=== PATIENT | female | born 1940 | race Caucasian/White ===

== ENCOUNTER 2019-03-30 07:53 | Emergency (ER) | payer MEDICARE, OTHER, SELFPAY ==
--- NOTE | 2019-03-30 08:03 | PC.NURSE ---
rad notified of CT order
--- NOTE | 2019-03-30 08:04 | XR_ITS ---
XR chest 2V HISTORY: ITS.REASON: stroke protocol ORDERING PHYSICIAN: Mati Isidro MD PATIENT AGE: 78 years COMPARISON: None available FINDINGS: Cardiac size is borderline and there is moderate aortic tortuosity.. The lungs are clear without infiltrates, suspicious nodules, or pleural effusions. No acute bony abnormalities. There are mild multilevel degenerative changes mid thoracic spine. There are monitor lines overlying the chest. There are mild degenerative changes of both shoulders. IMPRESSION: Negative chest, no acute finding
--- NOTE | 2019-03-30 08:04 | CT_ITS ---
CT head/brain wo con HISTORY: Hypertension, severe headache ITS.REASON: stroke protocol ORDERING PHYSICIAN: Mati Isidro MD PATIENT AGE: 78 years COMPARISON: None TECHNIQUE: Axial images obtained without contrast. Brain and bone windows reviewed. All CT scans at the facility use one or more dose reduction, viz: automated exposure control, ma/kV adjustment per patient size (including targeted exams where dose is matched to indication, i.e. head), or iterative reconstruction technique. FINDINGS: No midline shift, mass effect, intracranial hemorrhage, hydrocephalus, or extra-axial fluid collection is evident. There is an old lacunar infarction in the right basal ganglia. Mild periventricular ischemic gliotic changes are noted with mild atrophy. The calvarium has an unremarkable appearance. No mastoid effusion. No sinus air-fluid levels.. IMPRESSION: 1. No acute intracranial findings. 2. 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
[2019-03-30 08:07] VITALS: BP 214/99; PULSE 96; RESP 18; TEMP 36.8; O2SAT 96; BMI 21.6
--- NOTE | 2019-03-30 08:13 | HMH.EDGENADL ---
ED Disposition Clinical Impression: Headache Disposition: Home, Self-Care Condition on Discharge: Good Instructions: DI for Headache Referrals: Provider,Referral, MD [Primary Care Provider] - Time of Disposition: 10:13 - Critical Care Critical Care Time: No Attestation: On 03/30/19, the high probability of a clinically significant, sudden or life threatening deterioration of the following system(s) required my full and direct attention, intervention and personal management. The time I documented below is in addition to time spent performing reported procedures but includes the following listed in this critical care notation. Medical Decision Making - Medical Records Medical records reviewed: Yes: I reviewed the patient's medical records. - Seth Inquiry Pt receiving controlled substance: No Seth was queried for this patient: No Vital Signs: 03/30/19 08:07 03/30/19 08:47 03/30/19 09:41 Temperature 98.2 F 97.9 F Temperature Source Oral Oral Pulse Rate [Left Radial] 96 H 139 H 130 H Respiratory Rate 18 18 Blood Pressure [Right Arm] 214/99 H 201/100 H 195/95 H Blood Pressure Mean [Right Arm] 137 133 128 Blood Pressure Source [Right Arm] Automatic Cuff Manual Cuff/ Auscultation Blood Pressure Position [Right Arm] Sitting 02 Sat by Pulse Oximetry 96 96 98 Oxygen Delivery Method Room Air - Lab Data Lab results reviewed: Yes: I reviewed the patient's lab results. Lab Results 03/30/19 08:57: WBC 6.2, RBC 4.99, Hgb 14.4, Hct 44.7, MCV 89.6, MCH 28.9, MCHC 32.2, RDW 13.2, Plt Count 273, MPV 8.4, Neut % (Auto) 58.8, Lymph % (Auto) 28.7, [place] % (Auto) 8.2, Eos % (Auto) 3.7, Baso % (Auto) 0.5, Neut # (Auto) 3.7, Lymph # (Auto) 1.8, [place] # (Auto) 0.5, Eos # (Auto) 0.2, Baso # (Auto) 0.0 03/30/19 08:57: Sodium 144, Potassium 4.0, Chloride 108 H, Carbon Dioxide 28, Anion Gap 12.0, BUN 14, Creatinine 0.77, Estimated Creat Clear 42, Estimated GFR 72, Est GFR ( Amer) 87, Glucose 97, Calcium 9.9, Troponin I < 0.02, C-Reactive Protein < 0.2 03/30/19 08:57: ESR 19 Result diagrams: 03/30/19 08:57 03/30/19 08:57 Orders (Tests/Meds): ED MEDICATIONS Discontinued Medications Generic Name Dose Route Start Last Admin Trade Name Kimberlee PRN Reason Stop Dose Admin Dexamethasone Sodium Phosphate 8 mg 03/30/19 08:45 03/30/19 09:43 Decadron 4mg/Ml 1ml Vial IV 03/30/19 08:46 8 mg ONCE ONE Administration Ketorolac Tromethamine 30 mg 03/30/19 08:30 03/30/19 09:42 Toradol 30mg/Ml Vial IV 03/30/19 08:31 30 mg ONCE ONE Administration Metoclopramide HCl 5 mg 03/30/19 08:30 03/30/19 09:49 Reglan 10mg/2ml Vial IVP 03/30/19 08:31 5 mg ONCE ONE Administration Metoprolol Tartrate 50 mg 03/30/19 08:53 03/30/19 09:50 Lopressor 50mg Tablet PO 03/30/19 08:54 50 mg ONCE ONE Administration Ondansetron HCl 4 mg 03/30/19 08:30 03/30/19 09:49 Zofran 4mg/2ml Vial IV 03/30/19 08:31 4 mg ONCE ONE Administration ORDERS Category Date Time Status Chest XR 2 view (NOT portable) [XR chest 2V] Stat Exams 03/30/19 08:04 Taken General Adult HPI - General Stated complaint: hx of stroke; headache; not feeling well Time Seen by Provider: 03/30/19 08:13 Mode of Arrival: Ambulatory Source of Information: Patient, Relative Limitations: No Limitations Description of Symptoms (Recalled from ER Triage Doc. by RN): c/o headache t/o the night with no relief with aleve. - History of Present Illness HPI narrative: History of rare unilateral headaches, never formally evaluated. History also of CVA, nothing hemorrhagic. History of old lacunar. No other specific complaints. NO confusion, alterations in adl's, no weakness nor sensory deficit. No communication skills issues. - Related Data Home Medications Medication Instructions Recorded Confirmed atorvastatin 40 mg tablet 40 mg PO DAILY 30 Days #30 tab 09/16/18 03/30/19 metoprolol succinate ER 50 mg 50 mg P
[2019-03-30 08:47] VITALS: BP 201/100; PULSE 139; O2SAT 96
[2019-03-30 09:08] LABS: Basophils % 0.5 % (0.1-2.0); Eosinophils # 0.2 K/mm3 (0.0-0.4); Eosinophils % 3.7 % (0.1-12.0); Hematocrit 44.7 % (37.0-47.0); Hemoglobin 14.4 g/dL (12.2-16.2); Lymphocytes # 1.8 K/mm3 (0.7-4.5); Lymphocytes % 28.7 % (10-50); Mean Corpuscular HGB Conc 32.2 g/dL (31.8-35.4); Mean Corpuscular Hemoglobin 28.9 pg (27.0-31.2); Mean Corpuscular Volume 89.6 fl (81-99); Mean Platelet Volume 8.4 fl (7.4-10.4); Monocytes # 0.5 K/mm3 (0.1-1.0); Monocytes % 8.2 % (1.7-9.3); Neutrophils # 3.7 K/mm3 (1.8-7.8); Neutrophils % 58.8 % (37.0-80.0); Platelet Count 273 K/mm3 (142-424); Red Blood Count 4.99 M/mm3 (4.20-5.40); Red Cell Distribution Width 13.2 % (11.5-17.5); White Blood Count 6.2 K/mm3 (4.8-10.8)
[2019-03-30 09:31] LABS: Blood Urea Nitrogen 14 mg/dL (7-18); Calcium 9.9 mg/dL (8.5-10.1); Carbon Dioxide 28 mmol/L (21.0-32.0); Chloride 108 mmol/L (98-107); Creatinine Clearance Estimated 42 mL/min (50-200); Creatinine,Serum 0.77 mg/dL (0.55-1.02); Estimated Glomerular Filt Rate 72 ml/min (>60); GFR (African American) 87 ML/MIN (>60); Glucose 97 mg/dL (74-106); Sodium 144 mmol/L (136-145); Troponin I < 0.02 ng/ml (0.00-0.06)
[2019-03-30 09:32] LABS: C-Reactive Protein < 0.2 mg/L (0.0-0.9)
[2019-03-30 09:36] LABS: Erythrocyte Sedimentation Rate 19 mm/hr (0-30)
[2019-03-30 09:41] VITALS: BP 195/95; PULSE 130; RESP 18; TEMP 36.6; O2SAT 98
[2019-03-30 10:30] VITALS: BP 128/58; PULSE 79; RESP 18; TEMP 36.6; O2SAT 99
== END 2019-03-30 10:32 | disposition home or self-care (01) ==
PROVIDERS: Emergency Provider Emergency Medicine
DX: R51 Headache (principal); Z86.73 Personal history of transient ischemic attack (TIA), and cerebral infarction without residual deficits; K21.9 Gastro-esophageal reflux disease without esophagitis; E78.5 Hyperlipidemia, unspecified; I10 Essential (primary) hypertension
CPT/HCPCS: 70450; 71046; 80048; 84484; 85025; 85651; 86140; 93005; 96374; 96375; 99284; J2405

== ENCOUNTER → 2020-03-14 12:38 | Outpatient (CLI) | payer MEDICARE, OTHER, SELFPAY ==
--- NOTE | 2020-03-14 13:02 | XR_ITS ---
PROCEDURE: XR HAND LT MIN 3V CLINICAL INDICATION: SWELLING,PAIN COMPARISON: XR HAND RT MIN 3V from 03/14/2020 FINDINGS: No fracture or dislocation. No lytic or blastic change. There is normal mineralization. Severe osteoarthritic changes are present at the DIP is of digits 2 through 5 the interphalangeal joint of the thumb, and the 1st metacarpal-carpal joint with lateral subluxation at the base of the 1st metacarpal. Chondrocalcinosis is also noted. Other findings:The trapezium is not well demonstrated possibly obscured from overlying bony structures. CT may provide further evaluation. IMPRESSION: Osteoarthritis. Nonvisualization of the trapezium. There is lateral subluxation of the 1st metacarpal Dictated by: Shane Valentine MD 03/14/2020 14:08 Electronically signed by Shane Valentine MD in [place] 03/14/2020 14:08
--- NOTE | 2020-03-14 13:02 | XR_ITS ---
PROCEDURE: XR CHEST 2V CLINICAL HISTORY: CHEST WALL MASS COMPARISON: Chest from 03/30/2019 FINDINGS: The cardiomediastinal silhouette and pulmonary vascularity are within normal limits. The lungs are clear without infiltrates, suspicious nodules, or pleural effusions. The there is a pectus deformity. Surgical clips are present along the left breast. Degenerative changes are present in the thoracic spine. IMPRESSION: No acute finding. If there is indeed a chest wall mass then CT may be of further value. Dictated by: Shane Valentine MD 03/14/2020 14:12 Electronically signed by Shane Valentine MD in [place] 03/14/2020 14:12
--- NOTE | 2020-03-14 13:02 | XR_ITS ---
PROCEDURE: XR HAND RT MIN 3V CLINICAL INDICATION: SWELLING,PAIN Pain and swelling COMPARISON: No exams were available for comparison FINDINGS: No fracture or dislocation. No lytic or blastic change. There is normal mineralization. Osteoarthritic changes are present at the 1st metacarpal-carpal joint, 1st interphalangeal joint, DIP of the 2nd finger, PIP and DIP of the 3rd finger, DIP of the 4th and 5th fingers. There is mild ulnar deviation of the distal phalanx of the 2nd and 3rd finger. Chondrocalcinosis involves the triangular fibrocartilage. No bony erosive process is evident. IMPRESSION: Osteoarthritis Dictated by: Shane Valentine MD 03/14/2020 14:02 Electronically signed by Shane Valentine MD in [place] 03/14/2020 14:02
[2020-03-14 13:15] LABS: Basophils # 0.3 K/mm3 (0-0.2); Basophils % 2.5 % (0.1-2.0); Eosinophils # 0.3 K/mm3 (0.0-0.4); Eosinophils % 2.4 % (0.1-12.0); Hemoglobin 14.1 g/dL (12.2-16.2); Lymphocytes # 2.1 K/mm3 (0.7-4.5); Mean Corpuscular HGB Conc 32.8 g/dL (31.8-35.4); Mean Corpuscular Hemoglobin 30.3 pg (27.0-31.2); Mean Corpuscular Volume 92.5 fl (81-99); Mean Platelet Volume 9.6 fl (7.4-10.4); Monocytes # 0.9 K/mm3 (0.1-1.0); Monocytes % 7.8 % (1.7-9.3); Neutrophils # 7.6 K/mm3 (1.8-7.8); Neutrophils % 68.3 % (37.0-80.0); Platelet Count 453 K/mm3 (142-424); Red Blood Count 4.65 M/mm3 (4.20-5.40); Red Cell Distribution Width 13.5 % (11.5-17.5); White Blood Count 11.1 K/mm3 (4.8-10.8)
[2020-03-14 13:48] LABS: Alanine Aminotransferase 39 U/L (12-78); Albumin Level 4.5 g/dl (3.5-5.0); Albumin/Globulin Ratio 1.3 (1.1-1.8); Alkaline Phosphatase 184 U/L (38-126); Anion Gap 10.5 mEq/L (5-15); Aspartate Amino Transferase 40 U/L (14-36); Bilirubin,Total 0.4 mg/dl (0.2-1.3); Blood Urea Nitrogen 19 mg/dl (7-17); Calcium 11.1 mg/dl (8.4-10.2); Carbon Dioxide 29 mmol/L (22.0-30.0); Chloride 103 mmol/L (98-107); Estimated Glomerular Filt Rate 96 ml/min (>60); GFR (African American) 116 ML/MIN (>60); Globulin 3.6 g/dL (1.3-3.2); Glucose 97 mg/dl (74-100); Potassium 4.5 mmoL/L (3.5-5.1); Sodium 138 mmol/L (136-145); Total Protein,Serum 8.1 g/dl (6.3-8.2)
[2020-03-14 14:05] LABS: Erythrocyte Sedimentation Rate 36 mm/hr (0-30)
[2020-03-15 10:38] LABS: RA Latex Turbid. <10.0 IU/mL (0.0-13.9)
[2020-03-17 22:14] LABS: Anti-Cyclic Citrullinated Pept 11 units (0-19)
[2020-03-18 14:19] LABS: Anti-Centromere B Antibodies <0.2 AI (0.0-0.9); Anti-Jo-1 <0.2 AI (0.0-0.9); Anti-Smith Antibody <0.2 AI (0.0-0.9); Antichromatin Antibodies <0.2 AI (0.0-0.9); Antiscleroderma-70 Antibodies 0.2 AI (0.0-0.9); RNP Antibodies 0.6 AI (0.0-0.9); Sjogren's Anti-SS-A <0.2 AI (0.0-0.9); Sjogren's Anti-SS-B <0.2 AI (0.0-0.9)
[2020-03-19 03:49] LABS: Anti-DNA (DS) Ab Qn 1 IU/mL (0-9)
== END ==
PROVIDERS: Visit Provider Internal Medicine Adolescent Medicine
DX: I77.6 Arteritis, unspecified (principal); M25.432 Effusion, left wrist
CPT/HCPCS: 36415; 71046; 73130; 80053; 85025; 85651; 86200; 86225; 86235; 86431

== ENCOUNTER 2020-04-15 18:44 | Emergency (ER) | payer MEDICARE, OTHER, SELFPAY ==
[2020-04-15 18:45] VITALS: BP 186/85; PULSE 67; RESP 18; TEMP 36.7; O2SAT 96; BMI 23.5
--- NOTE | 2020-04-15 19:00 | HMH.EDWNDL ---
ED Disposition Clinical Impression: Laceration Disposition: Home, Self-Care Condition on Discharge: Good Instructions: DI for Laceration Repair Referrals: Juan Danielson MD [Primary Care Provider] - - Critical Care Critical Care Time: No Attestation: On 04/15/20, the high probability of a clinically significant, sudden or life threatening deterioration of the following system(s) required my full and direct attention, intervention and personal management. The time I documented below is in addition to time spent performing reported procedures but includes the following listed in this critical care notation. Medical Decision Making - Medical Records Medical records reviewed: Yes: I reviewed the patient's medical records. - Seth Inquiry Pt receiving controlled substance: No - Lab Data Lab results reviewed: Yes: I reviewed the patient's lab results. Wound/Laceration HPI - General Chief Complaint: Wound/Laceration Stated Complaint: AO 622 lac to R Hand by dog Time Seen by Provider: 04/15/20 18:44 Source of Information: Patient Limitations: No Limitations - History of Present Illness Onset (ago): minute(s) Location: other (Patient has a skin tear on the right hand) Place: home Patient tetanus UTD: Yes Context: accidental Associated symptoms: none Treatments prior to arrival: cold therapy - Related Data Home Medications Medication Instructions Recorded Confirmed atorvastatin 40 mg tablet 40 mg PO DAILY 30 Days #30 tab 09/16/18 03/30/19 metoprolol succinate 50 mg 50 mg PO DAILY 30 Days #30 tab 09/16/18 03/30/19 tablet,extended release 24 hr omeprazole 20 mg capsule,delayed 20 mg PO DAILY 30 Days #30 cap 09/16/18 03/30/19 release tramadol 50 mg tablet 50 mg PO DAILY 5 Days #30 tab 09/16/18 03/30/19 Previous Rx's Medication Instructions Recorded Ketorolac Tromethamine [Toradol 10 mg PO Q6H 5 Days #20 tab 03/30/19 10mg tablet] cephALEXin [Keflex 500mg Cap] 500 mg PO Q6H 7 Days #28 cap 09/08/19 Allergies Allergy/AdvReac Type Severity Reaction Status Date / Time diazepam [From Valium] Allergy Verified 09/08/19 11:33 [facility] History - Hepatitis A Screen High risk sexual behaviors?: Yes Attestation statement:: This patient has been screened for Hepatitis A risk factors. I have reviewed the patient's past medical history: Yes Medical History: Reports:: Gastroesophageal Reflux Disease(GERD), Hyperlipidemia, Hypertension Denies:: Diabetes Mellitus Type 1, Diabetes Mellitus Type 2 Other Medical History: Reports: Arthritis Laterality Cases: Left: Breast Biopsy, Right: Other Other Surgeries: Yes: Cancer Surgery, Hysterectomy-Total Fractures: Yes - Social History Smoking Status: Never smoker Alcohol Intake: never Occupational Status: retired Housing: house ROS Obtained: Yes All systems reviewed & no additional complaints - Constitutional Constitutional: Reports system reviewed and no additional complaints, except as docu - Eyes Eyes: Reports system reviewed and no additional complaints, except as docu - ENT Ears, Nose, Mouth, and Throat: Reports system reviewed and no additional complaints, except as docu - Cardiovascular Cardiovascular: Reports system reviewed and no additional complaints, except as docu - Respiratory Respiratory: Yes system reviewed and no additional complaints, except as docu - Gastrointestinal Gastrointestingal: Reports: system reviewed and no additional complaints, except as docu - Genitourinary Male Genitourinary: Reports system reviewed and no additional complaints, except as docu Female Genitourinary: Reports system reviewed and no additional complaints, except as docu - Musculoskeletal Musculoskeletal: Reports system reviewed and no additional complaints, except as docu - Integumentary/Breasts Skin/Breast: Reports system reviewed and no additional complaints, except as docu - Neurologic Neurologic: Reports system reviewed and n
[2020-04-15 19:09] VITALS: BP 121/74; PULSE 73; RESP 17; TEMP 36.8; O2SAT 98
== END 2020-04-15 19:15 | disposition home or self-care (01) ==
PROVIDERS: Emergency Provider Family Medicine; PCP Internal Medicine Adolescent Medicine
DX: S61.411A Laceration without foreign body of right hand, initial encounter (principal); W54.0XXA Bitten by dog, initial encounter; Y92.019 Unspecified place in single-family (private) house as the place of occurrence of the external cause; I10 Essential (primary) hypertension; E78.5 Hyperlipidemia, unspecified; K21.9 Gastro-esophageal reflux disease without esophagitis; Z79.899 Other long term (current) drug therapy; Z88.8 Allergy status to other drugs, medicaments and biological substances
CPT/HCPCS: 12001; 99282

== ENCOUNTER → 2020-04-17 12:55 | Outpatient (POV) | payer MEDICARE, OTHER, SELFPAY ==
[2020-04-17 13:01] VITALS: BP 157/81; PULSE 75; RESP 18; O2SAT 99; BMI 23.5
--- NOTE | 2020-04-17 13:45 | HMH.PMCON ---
Assessment and Plan (1) Low back pain Current visit: Yes Status: Chronic Category: Medical Code(s): M54.5 - Low back pain (2) Lumbar radiculopathy Current visit: Yes Status: Chronic Category: Medical Code(s): M54.16 - Radiculopathy, lumbar region HPI - Data of Consult Patient: new to practice Consult date: 04/17/20 Requesting Physician: Juana Keene APRN Primary Care Provider: Juan Danielson MD - Consult Narrative Reason for consult: Low back pain with radiation into left leg History of present illness: Ms. Chung is a 79 year old female who presents today for consultation for low back pain with radiation into her left lower extremity. Patient says that she has had this pain for many years . She says that the pain has progressively gotten worse since early March 2020. Patient is from out of town and is here with her daughter visiting. She has been doing more activity since being in [place]. She says that she has been doing more walking and more outdoor activity and feels that her pain has progressively gotten worse. Patient says that she has had epidural steroid injections in the past that have given her about 90% relief, however, her pain did return. She says that the pain is radiating into the left leg causing buckling at her knee. She is currently prescribed tramadol for which she is not getting any relief with the medication. She is not on any anticoagulation therapy. Patient has tried physical therapy in the past which did not give her any relief. She is continuing with a home stretching program. She does use ice and heat therapies at this time. Patient says that she has tried oral anti-inflammatories, however, she did not get much relief. CC: Juana Keene APRN [facility] History I have reviewed the patient's past medical history: Yes Medical History: Reports:: Gastroesophageal Reflux Disease(GERD), Hyperlipidemia, Hypertension Denies:: Cancer, Diabetes Mellitus Type 1, Diabetes Mellitus Type 2, MRSA *Have you ever received a pneumonia vaccine?: Yes *Have you received a flu vaccine this season?: Yes Other Medical History: Reports: Arthritis Laterality Cases: Left: Breast Biopsy, Right: Other Other Surgeries: Yes: Cancer Surgery, Hysterectomy-Total Amputation: No Fractures: Yes - *Social History Smoking Status: Never smoker Alcohol Intake: never *Occupational Status:: other Housing: house Household Members: other *Travel in the last 8 weeks: None Family Hx:: Unable to obtain Review of Systems - Review of Systems Review of Systems General: No recent weight changes, no fever, no sleep disturbances Respiratory: No cough, no shortness of air, no recurring pulmonary infections Cardiovascular/peripheral vascular: No chest pain, no palpitations, no edema, no shortness of breath Gastrointestinal: No new onset incontinence, normal bowel movements reported Genitourinary: No new onset incontinence Musculoskeletal: [Low back pain, left leg pain] Psychiatric: Normal mood/affect Neurological: [Denies weakness in extremities], [denies balance issues] Meds Home Medications Medication Instructions Recorded Confirmed Type atorvastatin 40 mg tablet 40 mg PO DAILY 30 Days #30 tab 09/16/18 03/30/19 History metoprolol succinate 50 mg 50 mg PO DAILY 30 Days #30 tab 09/16/18 03/30/19 History tablet,extended release 24 hr omeprazole 20 mg capsule,delayed 20 mg PO DAILY 30 Days #30 cap 09/16/18 03/30/19 History release tramadol 50 mg tablet 50 mg PO DAILY 5 Days #30 tab 09/16/18 03/30/19 History Ketorolac Tromethamine [Toradol 10 mg PO Q6H 5 Days #20 tab 03/30/19 Rx 10mg tablet] cephALEXin [Keflex 500mg Cap] 500 mg PO Q6H 7 Days #28 cap 09/08/19 Rx Diclofenac Sodium [Diclofenac Sod 100 gm TP QID #2 gel..gram. 04/17/20 Rx 100gm Topical Gel] Tizanidine HCl [Zanaflex 4mg 4 mg PO BID 30 Days #60 tab 04/17/20 Rx tab] Allergies Allergy/AdvReac Type Se
== END ==
PROVIDERS: PCP Internal Medicine Adolescent Medicine; Visit Provider Clinical Nurse Specialist Family Health
DX: M54.5 Low back pain (principal); M54.16 Radiculopathy, lumbar region
CPT/HCPCS: 99202

== ENCOUNTER 2020-05-02 10:13 | Day surgery (SDC) | payer MEDICARE, OTHER, SELFPAY ==
[2020-05-02 11:10] VITALS: BP 156/75; PULSE 80; RESP 18; TEMP 36.3; O2SAT 98; BMI 18.6
--- NOTE | 2020-05-02 11:29 | HMH.PMPROC ---
- Procedure Date: 05/02/20 Time: 11:29 Anesthesiologist:: Jaya Klein MD Complications:: None Pre-procedure Diagnosis:: Degenerative disc disease of lumbar spine with lumbar radiculopathy symptoms Post-procedure Diagnosis:: Same Indications for Procedure:: This patient is a pleasant 79-year-old white female who we are treating for low back pain with lumbar radicular symptoms. She has increasing radicular symptoms down her left leg with some muscle spasms. Will do lumbar epidural steroid injection today to help her with her pain symptoms. Procedure Details:: Lumbar epidural steroid injection Informed consent was obtained the risk and benefits of the procedure were explained to the patient. Patient was taken to the procedure room. The back was prepped using ChloraPrep. The skin and subcutaneous tissues were anesthetized using lidocaine. I placed a 17-gauge epidural needle into the L4-5 interspace. After confirmation of needle placement in the epidural space with dye we injected 2 mL's lidocaine 1.5% and Depo-Medrol 80 mg into the lumbar epidural space at L4-L5. The patient tolerated the procedure well with no complications. Plan and Disposition:: We will follow-up with her in 2 weeks. Will reevaluate her symptoms at that time.
[2020-05-02 11:30] VITALS: BP 162/88; PULSE 85
[2020-05-02 11:31] VITALS: BP 174/88; PULSE 82; RESP 18; O2SAT 98
[2020-05-02 11:49] VITALS: BP 162/72; PULSE 74; RESP 18; O2SAT 98
== END 2020-05-02 11:50 | disposition home or self-care (01) ==
PROVIDERS: PCP Internal Medicine Adolescent Medicine; Visit Provider Anesthesiology
DX: M51.16 Intervertebral disc disorders with radiculopathy, lumbar region (principal); I10 Essential (primary) hypertension; D64.9 Anemia, unspecified; Z85.3 Personal history of malignant neoplasm of breast; Z79.899 Other long term (current) drug therapy
CPT/HCPCS: 62323; J1040; Q9966

== ENCOUNTER → 2020-05-15 14:01 | Outpatient (POV) | payer MEDICARE, OTHER, SELFPAY ==
[2020-05-15 14:56] VITALS: BP 145/88; PULSE 79; RESP 18; O2SAT 98; BMI 22.4
--- NOTE | 2020-05-15 15:11 | HMH.PAINSOAP ---
[facility] Pain Management SOAP Note Subjective:: Patient is a pleasant 79-year-old white female who presents today for follow-up. She is being treated for low back pain with lumbar radiculopathy symptoms. Patient recently had a lumbar epidural steroid injection for which she says she got approximately 80% relief, however, she is now having pain into her low back and bilateral thigh area. She says it is worse with walking. She has tenderness noted over her bilateral SI joints. She also has a positive Cheikh, Berna's, distraction test today. She rates her pain a 10 out of 10 today. Patient is also managed with muscle relaxers and says this has given her relief. Review of Systems General: No recent weight changes, no fever, no sleep disturbances Respiratory: No cough, no shortness of air, no recurring pulmonary infections Cardiovascular/peripheral vascular: No chest pain, no palpitations, no edema, no shortness of breath Gastrointestinal: No new onset incontinence, normal bowel movements reported Genitourinary: No new onset incontinence Musculoskeletal: Low back pain, bilateral thigh pain Psychiatric: Normal mood/affect Neurological: [Denies weakness in extremities], [denies balance issues] Objective:: Physical exam General: Alert and oriented x3, no acute distress, pleasant and cooperative, [on room air] Lungs: Respirations even and unlabored, symmetrical chest expansion Eyes: PERRL Musculoskeletal: Flexion and extension of lumbar spine somewhat guarded secondary to pain, deep tendon reflexes normal, strength in upper and lower extremities [5/5], antalgic gait noted, positive [place]'s test, positive Berna's test, positive distraction test Neurological: Speech clear, 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 She does have tenderness over bilateral SI joints as well as a positive Cheikh, Berna's, distraction test. We will see her back in the clinic after the injection to reassess her symptoms. She and I did discuss a possible repeat lumbar epidural steroid injection if she does not get relief with the bilateral SI joint injections. She did discuss with Dr. liao at her last visit Dr. liao resuming her medications of tramadol [address] Rausch was prescribing the medication. We will start her on tramadol 50 mg 1 tablet p.o. twice daily. We will also refill her tizanidine 4 mg 1 tablet p.o. daily. Patient has been instructed to contact clinic if she has any concerns before next appointment. The patient and I specifically discussed risk factors for COVID19. These risks include, but are not limited to age greater than 60, heart or lung disease, diabetes, immunosuppression, and travel. We also discussed NSAIDs may worsen COVID19 infection or symptoms. Patient should not use NSAIDs to treat COVID19 signs or symptoms. Patient was also informed that any type of corticosteroid of any form (oral or injection) will decrease the patient's immune system response and may increase the likelihood of COVID19 infection and symptoms. [facility] History I have reviewed the patient's past medical history: Yes Medical History: Reports:: Cancer (breast), Gastroesophageal Reflux Disease(GERD), Hyperlipidemia, Hypertension Denies:: Diabetes Mellitus Type 1, Diabetes Mellitus Type 2, MRSA, Seizures *Have you ever received a pneumonia vaccine?: Yes *Have you received a flu vaccine this season?: Yes Other Medical History: Reports: Anemia, Arthritis Laterality Cases: Left: Breast Biopsy, Right: Other Other Surgeries: Yes: Cancer Surgery, Hysterectomy-Total Amputation: No Fractures: Yes - *Social History Smoking Status: Never smoker Alcohol Intake: current Alcohol Intake Frequency:: a few times a month *Occupational Status:: other Housing: house Household Members: other
== END ==
PROVIDERS: PCP Internal Medicine Adolescent Medicine; Visit Provider Clinical Nurse Specialist Family Health
DX: M51.16 Intervertebral disc disorders with radiculopathy, lumbar region (principal); M46.1 Sacroiliitis, not elsewhere classified
CPT/HCPCS: 99212

== ENCOUNTER 2020-05-23 13:56 | Day surgery (SDC) | payer MEDICARE, OTHER, SELFPAY ==
[2020-05-23 14:33] VITALS: BP 172/80; PULSE 88; RESP 18; TEMP 36.9; O2SAT 97; BMI 23.3
[2020-05-23 15:01] VITALS: BP 196/94; BP 197/97; PULSE 99; RESP 20; O2SAT 97
--- NOTE | 2020-05-23 15:04 | P.PCN_ITS ---
- Procedure Date: 05/23/20 Time: 15:04 Anesthesiologist:: Jaya Klein MD Complications:: None Pre-procedure Diagnosis:: Sacroiliitis Post-procedure Diagnosis:: Same Indications for Procedure:: Patient is a pleasant 79-year-old white female who we are treating for bilateral hip pain. She is done well with previous epidural steroid injections however most of her pain now is concentrated over the SI joints. She is tender over both SI joints. She has a positive SI joint compression test bilaterally. She has a positive Cheikh test bilaterally. She has a positive Berna's test bilat erally. We will do bilateral SI joint injections under fluoroscopy today to help her with her pain symptoms. Procedure Details:: B/L SI joint injection under fluoroscopy Informed consent was obtained and the risks and benefits of the procedure was explained to the patient. The patient was taken to the procedure room and placed prone on the procedure table. The patient was prepped using ChloraPrep. The skin and subcutaneous tissues overlying the SI joints were anesthetized using lidocaine. I placed a 22-gauge needle first in the left SI joint and second in the right SI joint. Needle placement was confirmed with dye. After this we injected 5 mL bupivacaine 0.25% and Depo-Medrol 40 mg into each SI joint. Patient tolerated the procedure well with no complication. Plan and Disposition:: We will follow-up with her in 2 weeks. Will reevaluate her symptoms at that time.
[2020-05-23 15:07] VITALS: BP 166/87; PULSE 85; RESP 18; O2SAT 97
== END 2020-05-23 15:09 | disposition home or self-care (01) ==
LOC: SC.PAINP 13:58
PROVIDERS: PCP Internal Medicine Adolescent Medicine; Visit Provider Anesthesiology
DX: M46.1 Sacroiliitis, not elsewhere classified (principal); I10 Essential (primary) hypertension; D64.9 Anemia, unspecified; Z85.3 Personal history of malignant neoplasm of breast; Z90.710 Acquired absence of both cervix and uterus; Z79.899 Other long term (current) drug therapy; Z88.8 Allergy status to other drugs, medicaments and biological substances
CPT/HCPCS: 27096; G0260; J1030; Q9966

== ENCOUNTER 2020-06-02 19:36 | Observation (INO) | payer MEDICARE, OTHER, SELFPAY ==
[2020-06-02] VITALS (8 sets, daily range): BP systolic 145–172; BP diastolic 62–101; PULSE 103–124; RESP 16–18; TEMP 36.6; O2SAT 94–99; BMI 24.3
--- NOTE | 2020-06-02 19:42 | CT_ITS ---
PROCEDURE: CT ABDOMEN PELVIS W CON CLINICAL INDICATION: abd pain Upper abdominal pain, epigastric pain with nausea COMPARISON: No exams were available for comparison TECHNIQUE: IV Contrast: 75ML OPTIRAY 350 Oral Contrast None Axial images obtained with sagittal and coronal reformats. All CT scans at the facility use one or more dose reduction, viz: automated exposure control, ma/kV adjustment per patient size (including targeted exams where dose is matched to indication, i.e. head), or iterative reconstruction technique. FINDINGS: LOWER THORAX: There are atelectatic changes in the lung bases with a few scattered areas of linear consolidation/volume loss. There are coronary artery calcifications and/or stents ABDOMEN & PELVIS: There is a small amount of perihepatic fluid. A gallstone is noted. The gallbladder is slightly distended. The spleen and adrenal glands are unremarkable as is the pancreas. There is a small hiatal hernia. There is mild to moderate right hydronephrosis to the UPJ with right renal cysts noted measuring up to 1.7 cm. There is moderate to severe distention of the urinary bladder extending superiorly to the L5-S1 level. Small umbilical hernia containing fat. There is mild thickening of the distal ileum and there is mild thickening of the entire colon. There is diverticulosis of the descending and sigmoid colon. There is a small amount fluid in the pelvis. The appendix is not identified. Prior hysterectomy. There is mild lumbar scoliosis convex right with multilevel degenerative disc disease. There are degenerative changes in the hips noted in the hips with subarticular cystic changes in the hips IMPRESSION: 1. Thickening of the small bowel and large bowel consistent with enterocolitis. 2. Cholelithiasis with mildly distended gallbladder. 3. Colonic diverticulosis. No focal areas of diverticulitis identified. 4. Right UPJ obstruction/stenosis with right hydronephrosis 5. Distended urinary bladder 6. Bibasilar atelectatic change Dictated b Shane Valentine MD 06/03/2020 06:43 Shane Valentine MD in [facility] 06/03/2020 06:46
--- NOTE | 2020-06-02 19:42 | PC.NURSE ---
ptup to bathroom at this time.
--- NOTE | 2020-06-02 19:44 | XR_ITS ---
PROCEDURE: XR CHEST PORTABLE CLINICAL HISTORY: upper abd pain Pain COMPARISON: CR Chest from 03/30/2019 CR XR CHEST 2V from 03/14/2020 FINDINGS: The cardiomediastinal silhouette and pulmonary vascularity are within normal limits. Atelectatic changes are present in the right lower lobe. Faint opacity present in the left lung base nonspecific. Upper lobes are clear. No acute bony abnormalities. IMPRESSION: Right basilar atelectasis. Faint opacity left lung base which could be due to atelectasis . Dictated b Shane Valentine MD 06/02/2020 22:37 Shane Valentine MD in [facility] 06/02/2020 22:37
[2020-06-02 19:54] LABS: Microscopic, Urine URINE MICROSCOPIC (MICROSCOPIC)
[2020-06-02 19:54] LABS: Basophils % 0.2 % (0.1-2.0); Eosinophils % 0.2 % (0.1-12.0); Hematocrit 43.5 % (37.0-47.0); Hemoglobin 15.2 g/dL (12.2-16.2); Lymphocytes # 0.8 K/mm3 (0.7-4.5); Lymphocytes % 6.3 % (10-50); Mean Corpuscular HGB Conc 34.9 g/dL (31.8-35.4); Mean Corpuscular Hemoglobin 30.6 pg (27.0-31.2); Mean Corpuscular Volume 87.6 fl (81-99); Mean Platelet Volume 8.6 fl (7.4-10.4); Monocytes # 0.5 K/mm3 (0.1-1.0); Neutrophils # 11.9 K/mm3 (1.8-7.8); Neutrophils % 89.3 % (37.0-80.0); Platelet Count 392 K/mm3 (142-424); Red Blood Count 4.97 M/mm3 (4.20-5.40); Red Cell Distribution Width 14.4 % (11.5-17.5); White Blood Count 13.3 K/mm3 (4.8-10.8)
--- NOTE | 2020-06-02 19:57 | ECG_ITS ---
APPROVED REPORT Exam: Resting ECG HR:98 bpm ECG Measurements Heart Rate 98 AXES OH 224 P 67 QRSd 66 QRS 77 QT 354 T 77 QTc 451 <Conclusion> Sinus rhythm with 1st degree AV block Low voltage QRS Poor R Wave Progression NDST-T Changes Abnormal ECG Electronically signed by : Piyush Treviño, 06/03/2020 15:01:32
[2020-06-02 19:58] LABS: Appearance,Urine CLEAR (Clear); Bilirubin,Urine Negative (Negative); Blood, Urine TRACE-I (Negative); Color,Urine YELLOW (Yellow); Glucose,Urine (UA) Negative (Negative); Ketones,Urine Negative (Negative); Leukocyte Esterase,Urine Negative (Negative); Nitrate,Urine Negative (Negative); PH,Urine 7.5 (5.0-8.5); Protein,Urine Negative (Negative); Urobilinogen,Urine 0.2 EU/dl (0.2)
[2020-06-02 19:59] LABS: Chloride 102 mmol/L (98-107); Sodium 140 mmol/L (136-145)
[2020-06-02 20:00] LABS: Potassium 4.1 mmoL/L (3.5-5.1)
[2020-06-02 20:02] LABS: Alanine Aminotransferase 44 U/L (12-78); Amylase 56 U/L (30-110); Anion Gap 15.1 mEq/L (5-15); Aspartate Amino Transferase 41 U/L (14-36); Bilirubin,Unconjugated 0.8 mg/dL (0.0-1.1); Blood Urea Nitrogen 16 mg/dl (7-17); Carbon Dioxide 27 mmol/L (22.0-30.0); Creatinine Clearance Estimated 45 mL/min (50-200); Estimated Glomerular Filt Rate 118 ml/min (>60); GFR (African American) 143 ML/MIN (>60)
[2020-06-02 20:03] LABS: Albumin Level 4.3 g/dl (3.5-5.0); Alkaline Phosphatase 154 U/L (38-126); Bilirubin,Direct 0.1 mg/dl (0.0-0.4); Bilirubin,Indirect 0.8 mg/dL (0.0-0.9); Bilirubin,Total 0.9 mg/dl (0.2-1.3); Glucose 199 mg/dl (74-100); Lipase 19 U/L (23-300)
[2020-06-02 20:08] LABS: MANUAL DIFFERENTIAL MANUAL DIFFERENTIAL (MANUAL DIFF)
[2020-06-02 20:17] LABS: Troponin I < 0.01 ng/ml (0.00-0.034)
[2020-06-02 20:22] LABS: Bacteria,Urine Trace /lpf; Squamous Epithelial Cell,Urine Occasional #/hpf (0-5); WBC,Urine Occasional #/hpf (0-3)
--- NOTE | 2020-06-02 20:49 | HMH.EDNVD ---
ED Disposition Clinical Impression: Diverticulitis, Acute urinary retention, SIRS (systemic inflammatory response syndrome) Cholelithiasis Qualifiers: Cholelithiasis location: gallbladder Cholecystitis presence: without cholecystitis Biliary obstruction: without biliary obstruction Qualified Code(s): K80.20 - Calculus of gallbladder without cholecystitis without obstruction Disposition: Admitted As Inpatient Condition on Discharge: Good Instructions: DI for Acute Abdomen Referrals: Juan Danielson MD [Primary Care Provider] - - Critical Care Critical Care Time: No Attestation: On 06/02/20, the high probability of a clinically significant, sudden or life threatening deterioration of the following system(s) required my full and direct attention, intervention and personal management. The time I documented below is in addition to time spent performing reported procedures but includes the following listed in this critical care notation. Medical Decision Making - Medical Records Medical records reviewed: Yes: I reviewed the patient's medical records. - Seth Inquiry Pt receiving controlled substance: No Vital Signs: 06/02/20 19:36 06/02/20 20:00 06/02/20 20:30 Temperature 97.8 F Temperature Source Oral Pulse Rate [Right Brachial] 124 H 118 H 112 H Respiratory Rate 18 18 18 Blood Pressure [Right Arm] 169/101 H 172/99 H 164/94 H Blood Pressure Mean [Right Arm] 123 123 117 Blood Pressure Source [Right Arm] Automatic Cuff Automatic Cuff Automatic Cuff Blood Pressure Position [Right Arm] Sitting Supine Supine 02 Sat by Pulse Oximetry 98 99 99 Oxygen Delivery Method Room Air Room Air Room Air 06/02/20 21:00 06/02/20 21:30 06/02/20 22:00 Temperature Temperature Source Pulse Rate [Right Brachial] 108 H 104 H 103 H Respiratory Rate 16 18 18 Blood Pressure [Right Arm] 164/78 H 145/70 H 160/71 H Blood Pressure Mean [Right Arm] 106 95 100 Blood Pressure Source [Right Arm] Automatic Cuff Automatic Cuff Automatic Cuff Blood Pressure Position [Right Arm] Supine Supine Supine 02 Sat by Pulse Oximetry 98 98 96 Oxygen Delivery Method Room Air Room Air Room Air 06/02/20 22:30 06/02/20 23:00 Temperature Temperature Source Pulse Rate [Right Brachial] 108 H 113 H Respiratory Rate 18 18 Blood Pressure [Right Arm] 160/73 H 156/62 H Blood Pressure Mean [Right Arm] 102 93 Blood Pressure Source [Right Arm] Automatic Cuff Automatic Cuff Blood Pressure Position [Right Arm] Supine Supine 02 Sat by Pulse Oximetry 95 94 L Oxygen Delivery Method Room Air Room Air - Lab Data Lab results reviewed: Yes: I reviewed the patient's lab results. Lab Results 06/02/20 19:40: WBC 13.3 H, RBC 4.97, Hgb 15.2, Hct 43.5, MCV 87.6, MCH 30.6, MCHC 34.9, RDW 14.4, Plt Count 392, MPV 8.6, Neut % (Auto) 89.3 H, Lymph % (Auto) 6.3 L, [place] % (Auto) 4.0, Eos % (Auto) 0.2, Baso % (Auto) 0.2, Neut # (Auto) 11.9 H, Lymph # (Auto) 0.8, [place] # (Auto) 0.5, Eos # (Auto) 0.0, Baso # (Auto) 0.0, Total Counted 100, Neutrophils % (Manual) 87 H, Lymphocytes % (Manual) 8 L, Monocytes % (Manual) 5, Platelet Estimate Normal, Stomatocytes 1+ 06/02/20 19:40: Sodium 140, Potassium 4.1, Chloride 102, Carbon Dioxide 27, Anion Gap 15.1 H, BUN 16, Creatinine 0.50 L, Estimated Creat Clear 45, Estimated GFR 118, Est GFR ( Amer) 143, Glucose 199 H, Calcium 11.0 H, Total Bilirubin 0.9, Direct Bilirubin 0.1, Conjugated Bilirubin 0.0, Indirect Bilirubin 0.8, Unconjugated Bilirubin 0.8, AST 41 H, ALT 44, Alkaline Phosphatase 154 H, Troponin I < 0.01, Total Protein 8.0, Albumin 4.3, Amylase 56, Lipase 19 L 06/02/20 19:40: ESR 10 06/02/20 19:40: C-Reactive Protein 32.0 H 06/02/20 19:45: Urine Color Yellow, Urine Appearance Clear, Urine pH 7.5, Ur Specific [place] 1.020, Urine Protein Negative, Urine Glucose (UA) Negative, Urine Ketones Negative, Urine Blood Trace-i, Urine Nitrate Negative, Urine Bilirubin Negative, Urine Urobilinogen 0.2, Ur Leukocyte Esterase Negative, U
[2020-06-02 20:53] LABS: Lymphocytes % 8 % (10-50); Monocytes % 5 % (2-9); Neutrophils % 87 % (42-76); Platelet Estimate Normal; Stomatocytes 1+; Total Cells Counted 100
[2020-06-02 22:00] LABS: Adenovirus,PCR Not Detected (NotDetected); Bordetella Pertussis Not Detected (NotDetected); Chlamydophila Pneumoniae, PCR Not Detected (NotDetected); Coronavirus 19, PCR Not Detected (NotDetected); Coronavirus 229E Not Detected (NotDetected); Coronavirus NL63 Not Detected (NotDetected); Coronavirus OC43 Not Detected (NotDetected); Coronovirus HKU1,PCR Not Detected (NotDetected); Human Metapneumovirus Not Detected (NotDetected); Influenza A, PCR Not Detected (NotDetected); Influenza AH1, 2009 Not Detected (NotDetected); Influenza AH1, PCR Not Detected (NotDetected); Influenza AH3,PCR Not Detected (NotDetected); Influenza B, PCR Not Detected (NotDetected); Mycoplasma Pneumoniae, PCR Not Detected (NotDetected); Parainfluenza 1, PCR Not Detected (NotDetected); Parainfluenza 2, PCR Not Detected (NotDetected); Parainfluenza 3, PCR Not Detected (NotDetected); Parainfluenza 4, PCR Not Detected (NotDetected); Respiratory Syncytial Virus Not Detected (NotDetected); Rhinovirus/Enterovirus Not Detected (NotDetected)
[2020-06-02 22:37] LABS: Erythrocyte Sedimentation Rate 10 mm/hr (0-30)
[2020-06-02 23:36] LABS: Troponin I < 0.01 ng/ml (0.00-0.034)
[2020-06-03] VITALS (10 sets, daily range): BP systolic 120–169; BP diastolic 50–75; PULSE 66–111; RESP 16–26; TEMP 36.8–38.2; O2SAT 90–98; BMI 22.4
--- NOTE | 2020-06-03 02:09 | PC.NURSE ---
patient up to floor via wheelchair,
[2020-06-03 03:02] LABS: Troponin I < 0.01 ng/ml (0.00-0.034)
--- NOTE | 2020-06-03 04:19 | PC.NURSE ---
A&O X4. PT RESTED WELL WITH EYES CLOSED AFTER ARRIVING TO THE UNIT THIS AM. DAUGHTER REMAINED AT BEDSIDE UNTIL ADMISSION WAS COMPLETE, STATED SHE WOULD BE BACK LATER THIS AM SHE WANTED TO BE PRESENT FOR THE UROLOGY CONSULT. PT C/O ABDOMINAL TENDERNESS UPON PALPATION, RATING PAIN A 7/10 ON PAIN SCALE. ADMINISTERED MORPHINE PER MAR. WILL REASSESS AND MONITOR. PT ALSO C/O BARNETT UPON ARRIVAL TO UNIT. ADMINISTERED TYLENOL PER MAR X1. UPON REASSESSMENT PT NOTED RESTING WITH EYES CLOSED. BILATERAL LUNGS NOTED CLEAR T/O. FC REMAINS INTACT AND DRAINING ADEQUATELY. URINE NOTED CLEAR AND BRIGHT YELLOW IN COLOR. NO BM NOTED THUS FAR. REMAINS NPO SINCE 0000. TOLERATED RA WELL WITH NO C/O SOA. RR NOTED CINDY AND UNLABORED. VSS. REMAINS SAFE. CALL LIGHT WITHIN REACH. WILL CONTINUE TO MONITOR.
[2020-06-03 06:23] LABS: Basophils % 0.2 % (0.1-2.0); Chloride 106 mmol/L (98-107); Eosinophils % 0.2 % (0.1-12.0); Hematocrit 39.4 % (37.0-47.0); Lymphocytes # 1.1 K/mm3 (0.7-4.5); Lymphocytes % 6.4 % (10-50); Mean Corpuscular HGB Conc 33.5 g/dL (31.8-35.4); Mean Corpuscular Hemoglobin 30.8 pg (27.0-31.2); Mean Corpuscular Volume 92.1 fl (81-99); Mean Platelet Volume 8.2 fl (7.4-10.4); Monocytes # 0.6 K/mm3 (0.1-1.0); Monocytes % 3.7 % (1.7-9.3); Neutrophils # 15.5 K/mm3 (1.8-7.8); Neutrophils % 89.5 % (37.0-80.0); Platelet Count 305 K/mm3 (142-424); Red Blood Count 4.28 M/mm3 (4.20-5.40); Red Cell Distribution Width 14.7 % (11.5-17.5); Sodium 138 mmol/L (136-145); White Blood Count 17.3 K/mm3 (4.8-10.8)
[2020-06-03 06:24] LABS: Potassium 3.7 mmoL/L (3.5-5.1)
[2020-06-03 06:26] LABS: Blood Urea Nitrogen 18 mg/dl (7-17); Creatinine Clearance Estimated 42 mL/min (50-200); Estimated Glomerular Filt Rate 96 ml/min (>60); GFR (African American) 116 ML/MIN (>60)
[2020-06-03 06:27] LABS: Anion Gap 10.7 mEq/L (5-15); Carbon Dioxide 25 mmol/L (22.0-30.0); Glucose 99 mg/dl (74-100)
[2020-06-03 07:23] LABS: Calcium 9.4 mg/dl (8.4-10.2)
[2020-06-03 07:33] LABS: Hemoglobin 13.2 g/dL (12.2-16.2)
[2020-06-03 07:34] LABS: MANUAL DIFFERENTIAL MANUAL DIFFERENTIAL (MANUAL DIFF)
--- NOTE | 2020-06-03 07:40 | P.CONPHA_ITS ---
[facility] Pharmacy VTE Monitoring - Patient Demographics Admission date: 06/02/20 Report Date: 06/03/20 Time: 07:40 Allergies/Adverse Reactions: Patient Allergies diazepam [From Valium] Allergy (Verified 05/23/20 14:40) Height: 1.63 m Weight: 59.676 kg Patient Problems: Current Active Problems Diverticulitis (Acute) Acute urinary retention (Acute) Cholelithiasis (Acute) SIRS (systemic inflammatory response syndrome) (Acute) - VTE Risk Labs: VTE Related Lab Results Hgb 13.2 g/dL (12.2-16.2) D 06/03/20 06:00 Hct 39.4 % (37.0-47.0) 06/03/20 06:00 Plt Count 305 K/mm3 (142-424) 06/03/20 06:00 BUN 18 mg/dl (7-17) H 06/03/20 06:00 Creatinine 0.60 mg/dl (0.52-1.04) 06/03/20 06:00 Estimated Creat Clear 42 mL/min (50-200) 06/03/20 06:00 Was VTE Risk Assessment Performed: Yes VTE Score: 4 VTE Risk Level: Low Risk - Prophylaxis VTE Prophylaxis Ordered?: Yes Types of VTE Prophylaxis: TEDS Knee High Location of Applied Device: Bilateral Lower Extremeties - VTE Diagnosis Confirmed Treatment or plan recommended: Continue Current Treatment
--- NOTE | 2020-06-03 07:47 | HMH.HP ---
*Admission Date: 06/02/20 *Chief complaint: abdominal pain *History of present illness: Ms. Chung is a pleasant 79-year-old female who presented to the emergency room yesterday with abdominal pain. Describes abdominal pain as diffuse, associated with nausea and vomiting after drinking some russell gus. Denies any fevers. Given her weakness, vomiting, abdominal pain, her daughter brought her to the ER for further assessment. She arrived via ambulance where initial work-up consisted of CBC, CMP, CT of her abdomen and pelvis. Imaging showed significant urinary retention with distended bladder and right-sided hydronephrosis. She had a mild leukocytosis with no gross abnormality on her CMP. CT concerning for enterocolitis as well with thickening of the distal ileum and esposito colon. Given her symptom onset, pain, image findings, Bardales catheter was placed with prompt drainage of distended bladder (600 to 800 cc of urine). She was initiated on Levaquin and Flagyl for colitis and initially suspected diverticulitis. Admitted to medicine for further management. This morning she reports, with her daughter at bedside, distant history of Crohn's disease for which she is not on any daily maintenance. Has not had a flare in many years to her knowledge. Labs this morning show an increased white cell count of approximately 17,000. Still has diffuse abdominal pain. Using morphine regularly. Currently n.p.o. for consult for urology. Denies any shortness of breath, chest pain, confusion, flank pain overnight. [facility] History I have reviewed the patient's past medical history: Yes Medical History: Reports:: Cancer, Gastroesophageal Reflux Disease(GERD), Hyperlipidemia, Hypertension Denies:: Diabetes Mellitus Type 1, Diabetes Mellitus Type 2, MRSA, Seizures *Have you ever received a pneumonia vaccine?: Yes *Have you received a flu vaccine this season?: Yes Other Medical History: Reports: Anemia, Arthritis Laterality Cases: Left: Breast Biopsy, Mastectomy, Right: Other Other Surgeries: Yes: Cancer Surgery, Colonoscopy, Hysterectomy-Total Amputation: No Fractures: Yes - *Social History Last grade of school completed: Advanced degree Smoking Status: Never smoker Alcohol Intake: current Alcohol Intake Frequency:: a few times a month *Occupational Status:: retired Housing: house Household Members: family *Travel in the last 8 weeks: None Family Hx:: Cancer Review of Systems - Review of Systems Review of systems:: pertinent systems reviewed and negative unless documented below (14 point review of systems performed, pertinent positives and negatives as per HPI) - *Neurologic Denies localized weakness, Denies seizure-like activity Meds Home Medications Medication Instructions Recorded Confirmed Type atorvastatin 40 mg tablet 40 mg PO DAILY 30 Days #30 tab 09/16/18 06/03/20 History tramadol 50 mg tablet 50 mg PO DAILYP PRN 5 Days #30 tab 09/16/18 06/03/20 History Amlodipine Besylate [Amlodipine 5 mg PO DAILY 05/02/20 06/03/20 History 10mg Tab] Celecoxib [CeleBREX 100mg Capsule] 100 mg PO BID 05/02/20 06/03/20 History Diclofenac Sodium [Diclofenac Sod 100 gm TP QID PRN 05/02/20 06/03/20 History 100gm Topical Gel] Escitalopram Oxalate [Lexapro] 5 mg PO DAILY 05/02/20 06/03/20 History Tizanidine HCl [Zanaflex 4mg 4 mg PO BID PRN 05/02/20 06/03/20 History tab] Omeprazole [Omeprazole 40mg 40 mg PO DAILY 06/03/20 06/03/20 History Capsule] Allergies Allergy/AdvReac Type Severity Reaction Status Date / Time diazepam [From Valium] Allergy Verified 05/23/20 14:40 Exam Vital signs and Labs for Last 24 Hours: Temp Pulse Resp BP Pulse Ox 98.8 F 94 H 18 126/57 L 96 06/03/20 07:23 06/03/20 07:23 06/03/20 07:23 06/03/20 07:23 06/03/20 07:23 Laboratory Results - last 24 hr 06/02/20 19:40: WBC 13.3 H, RBC 4.97, Hgb 15.2, Hct 43.5, MCV 87.6, MCH 30.6, MCHC 34.9, RDW 14.4, Plt Count 392, MPV 8.6, Neut % (Auto) 89.3
[2020-06-03 08:10] LABS: Eosinophils % 1 % (0-3); Lymphocytes % 12 % (10-50); Monocytes % 3 % (2-9); Neutrophils % 83 % (42-76); Total Cells Counted 100
[2020-06-03 08:11] LABS: Platelet Estimate Normal; RBC Morphology Normal
--- NOTE | 2020-06-03 09:56 | PC.NURSE ---
late entry: Notified Zulay in Dr. Hodgson office about consult [id number]
--- NOTE | 2020-06-03 12:36 | PC.NURSE ---
Notified Dr. Wiggins about the consult on pt.
--- NOTE | 2020-06-03 13:03 | HMH.CONS ---
*Admission Date: 06/02/20 *Reason for consult:: Bladder distention and right hydronephrosis *History of present illness: 79-year-old white female who presented to the emergency room yesterday with some diffuse abdominal pain associated with nausea and vomiting. She gives a distant history of Crohn's disease. Her lab work showed an elevated white count of 17.3 and normal kidney function. Her urinalysis unremarkable. CT scan was performed which showed some right-sided hydronephrosis likely secondary to a UPJ obstruction as well as bladder distention. There is also some mild GI findings. Bardales catheter was placed in the emergency room with a reported 600 to 800 cc immediately out. Patient states that this did not resolve her abdominal discomfort however. She states history of some episodic right-sided flank pain as not severe. She denies a prior history of urinary difficulties. She has had a previous hysterectomy and cystocele repair. She has had 7 pregnancies. She denies a history of recurrent urinary tract infections but has had an occasional 1. Her daughter states that there is a history of some right kidney swelling release 15 years ago but no work-up was performed to their knowledge. [facility] History Medical History: Reports:: Cancer, Gastroesophageal Reflux Disease(GERD), Hyperlipidemia, Hypertension Denies:: Diabetes Mellitus Type 1, Diabetes Mellitus Type 2, MRSA, Seizures *Have you ever received a pneumonia vaccine?: Yes *Have you received a flu vaccine this season?: Yes Other Medical History: Reports: Anemia, Arthritis Laterality Cases: Left: Breast Biopsy, Mastectomy, Right: Other Other Surgeries: Yes: Cancer Surgery, Colonoscopy, Hysterectomy-Total Amputation: No Fractures: Yes - *Social History Last grade of school completed: Advanced degree Smoking Status: Never smoker Alcohol Intake: current Alcohol Intake Frequency:: a few times a month *Occupational Status:: retired Housing: house Household Members: family *Travel in the last 8 weeks: None Family Hx:: Cancer Review of Systems - Review of Systems Review of systems:: pertinent systems reviewed and negative unless documented below - *Neurologic Denies localized weakness, Denies seizure-like activity Meds Home Medications Medication Instructions Recorded Confirmed Type atorvastatin 40 mg tablet 40 mg PO DAILY 30 Days #30 tab 09/16/18 06/03/20 History omeprazole 20 mg capsule,delayed 20 mg PO DAILY PRN 30 Days #30 cap 09/16/18 06/03/20 History release tramadol 50 mg tablet 50 mg PO DAILY PRN 5 Days #30 tab 09/16/18 06/03/20 History Amlodipine Besylate [Amlodipine 5 mg PO DAILY 05/02/20 06/03/20 History 10mg Tab] Celecoxib [CeleBREX 100mg Capsule] 100 mg PO BID 05/02/20 06/03/20 History Diclofenac Sodium [Diclofenac Sod 100 gm TP QID PRN 05/02/20 06/03/20 History 100gm Topical Gel] Escitalopram Oxalate [Lexapro] 5 mg PO DAILY 05/02/20 06/03/20 History Tizanidine HCl [Zanaflex 4mg 4 mg PO BID PRN 05/02/20 06/03/20 History tab] Allergies Allergy/AdvReac Type Severity Reaction Status Date / Time diazepam [From Valium] Allergy Verified 05/23/20 14:40 Exam Vital signs and Labs for Last 24 Hours: Temp Pulse Resp BP Pulse Ox 98.8 F 90 18 126/57 L 96 06/03/20 07:23 06/03/20 08:00 06/03/20 07:23 06/03/20 07:23 06/03/20 07:23 Laboratory Results - last 24 hr 06/02/20 19:40: WBC 13.3 H, RBC 4.97, Hgb 15.2, Hct 43.5, MCV 87.6, MCH 30.6, MCHC 34.9, RDW 14.4, Plt Count 392, MPV 8.6, Neut % (Auto) 89.3 H, Lymph % (Auto) 6.3 L, [place] % (Auto) 4.0, Eos % (Auto) 0.2, Baso % (Auto) 0.2, Neut # (Auto) 11.9 H, Lymph # (Auto) 0.8, [place] # (Auto) 0.5, Eos # (Auto) 0.0, Baso # (Auto) 0.0, Total Counted 100, Neutrophils % (Manual) 87 H, Lymphocytes % (Manual) 8 L, Monocytes % (Manual) 5, Platelet Estimate Normal, Stomatocytes 1+ 06/02/20 19:40: Sodium 140, Potassium 4.1, Chloride 102, Carbon Dioxide 27, Anion Gap 15.1 H, BUN 16, Creatinine 0.
--- NOTE | 2020-06-03 13:55 | HMH.PHAINT ---
MEDICATION RECONCILIATION COMPLETED ON PATIENT USING LIST FROM MD OFFICE AND EXTERNAL FILL HISTORY FROM PHARMACY. -VICKI MACHADOD
--- NOTE | 2020-06-03 13:58 | PC.NURSE ---
received call from Dr. Wiggins. He explains that pt will have a colonoscopy tomorrow morning. He ordered clear liquids for today and for pt to recevie Go-lytley po. He explains that Dr. Cyr should put order in for go-lytely but that if order is not in within the hour, to put order in under himself (Dr. Wiggins). I will fill out consent for procedure today.
--- NOTE | 2020-06-03 14:12 | PC.NURSE ---
informed consent for colonoscopy signed by pt and placed on chart
--- NOTE | 2020-06-03 18:50 | HMH.GSCON ---
*Admission Date: 06/02/20 *Reason for consult:: colitis *History of present illness: This is an 79-year-old female seen in consultation from Dr. Cyr for evaluation regarding colitis. A truncated copy of her HPI from her admission H&P is forwarded below: ...presented to the emergency room yesterday with abdominal pain...diffuse, associated with nausea and vomiting after drinking some russell gus. Denies any fevers... Imaging showed significant urinary retention with distended bladder and right-sided hydronephrosis...CT concerning for enterocolitis as well with thickening of the distal ileum and esposito colon. Given her symptom onset, pain, image findings, Bardales catheter was placed with prompt drainage of distended bladder (600 to 800 cc of urine). She was initiated on Levaquin and Flagyl for colitis and initially suspected diverticulitis. ...distant history of Crohn's disease for which she is not on any daily maintenance. Has not had a flare in many years to her knowledge. Labs this morning show an increased white cell count of approximately 17,000. Still has diffuse abdominal pain. Using morphine regularly. Review of Systems - Constitutional Denies chills - Eyes Denies blurry vision - ENT Denies lip swelling - *Cardiovascular Denies chest pain - *Respiratory Denies cough - *Gastrointestinal Reports abdominal pain - *Genitourinary Denies blood in urine - *Musculoskeletal Reports muscle weakness - Integumentary/Breasts Denies rash - *Neurologic Denies localized weakness, Denies seizure-like activity - Psychiatric Denies anxiety - Endocrine Denies flushing - Hematologic/Lymphatic Denies easy bleeding - Allergic/Immunologic Denies wheezing [facility] History Medical History: Reports:: Cancer, Gastroesophageal Reflux Disease(GERD), Hyperlipidemia, Hypertension Denies:: Diabetes Mellitus Type 1, Diabetes Mellitus Type 2, MRSA, Seizures *Have you ever received a pneumonia vaccine?: Yes *Have you received a flu vaccine this season?: Yes Other Medical History: Reports: Anemia, Arthritis Laterality Cases: Left: Breast Biopsy, Mastectomy, Right: Other Other Surgeries: Yes: Cancer Surgery, Colonoscopy, Hysterectomy-Total Amputation: No Fractures: Yes - *Social History Last grade of school completed: Advanced degree Smoking Status: Never smoker Alcohol Intake: current Alcohol Intake Frequency:: a few times a month *Occupational Status:: retired Housing: house Household Members: family *Travel in the last 8 weeks: None Family Hx:: Cancer Meds Home Medications Medication Instructions Recorded Confirmed Type atorvastatin 40 mg tablet 40 mg PO DAILY 30 Days #30 tab 09/16/18 06/03/20 History tramadol 50 mg tablet 50 mg PO DAILYP PRN 5 Days #30 tab 09/16/18 06/03/20 History Amlodipine Besylate [Amlodipine 5 mg PO DAILY 05/02/20 06/03/20 History 10mg Tab] Celecoxib [CeleBREX 100mg Capsule] 100 mg PO BID 05/02/20 06/03/20 History Diclofenac Sodium [Diclofenac Sod 100 gm TP QID PRN 05/02/20 06/03/20 History 100gm Topical Gel] Escitalopram Oxalate [Lexapro] 5 mg PO DAILY 05/02/20 06/03/20 History Tizanidine HCl [Zanaflex 4mg 4 mg PO BID PRN 05/02/20 06/03/20 History tab] Omeprazole [Omeprazole 40mg 40 mg PO DAILY 06/03/20 06/03/20 History Capsule] Allergies Allergy/AdvReac Type Severity Reaction Status Date / Time diazepam [From Valium] Allergy Verified 05/23/20 14:40 Exam Vital signs and Labs for Last 24 Hours: Temp Pulse Resp BP Pulse Ox 100 F H 100 H 18 134/75 90 L 06/03/20 15:23 06/03/20 16:00 06/03/20 15:23 06/03/20 15:23 06/03/20 15:23 Laboratory Results - last 24 hr 06/02/20 19:40: WBC 13.3 H, RBC 4.97, Hgb 15.2, Hct 43.5, MCV 87.6, MCH 30.6, MCHC 34.9, RDW 14.4, Plt Count 392, MPV 8.6, Neut % (Auto) 89.3 H, Lymph % (Auto) 6.3 L, [place] % (Auto) 4.0, Eos % (Auto) 0.2, Baso % (Auto) 0.2, Neut # (Auto) 11.9 H, Lymph # (Auto) 0.8, [place] # (Au
--- NOTE | 2020-06-03 19:34 | PC.NURSE ---
Biggest issue this shift is abd pain. Is slowly drinking Golytely for colonoscopy tomorrow morning. Will get up to [facility] with assist. Bardales cath with linda UCARI. Refused TEDS. Is a FULL code until son (senior attorney in [place]) can populate LW/AD papers. This is per pt and family request. No other issues noted. VSS.
[2020-06-03 20:41] LABS: Adenovirus F 40/41, stool Not Detected (NotDetected); Astrovirus Not Detected (NotDetected); Cryptosporidium Not Detected (NotDetected); Cyclospora Cayetanesis Not Detected (NotDetected); Entamoeba histolytica Not Detected (NotDetected); Enteroaggregative E coli Not Detected (NotDetected); Enteropathogenic E coli Not Detected (NotDetected); Enterotoxigenic E coli Not Detected (NotDetected); Giardia lamblia Not Detected (NotDetected); Norovirus Not Detected (NotDetected); Rotavirus A Not Detected (NotDetected); Sapovirus Not Detected (NotDetected); Shiga-like toxin E coli Not Detected (NotDetected); Shigella Enterovasive E coli Not Detected (NotDetected); Vibrio Cholerae Not Detected (NotDetected); Vibrio, PCR Not Detected (NotDetected)
[2020-06-03 20:43] LABS: Campylobacter Not Detected (NotDetected); Plesimonas Shigalloides, PCR Not Detected (NotDetected); Salmonella, PCR Not Detected (NotDetected); Yersinia Entercolitica, PCR Not Detected (NotDetected)
[2020-06-03 23:06] LABS: Clostridium Difficile A/B, PCR Detected (NotDetected)
[2020-06-04 04:00] VITALS: BP 138/60; PULSE 105; RESP 18; TEMP 37; O2SAT 94
[2020-06-04 05:00] VITALS: BMI 23.9
--- NOTE | 2020-06-04 05:00 | PC.NURSE ---
THIS NOTE IS CORRELATE WITH THE I&O INTERVENTION IN REGARDS TO NUMBER OF VOIDS. THE NUMBER OF VOIDS IS IN REFERENCE TO THE NUMBER OF TIMES PT HAS HAD A BOWEL MOVEMENT AND WAS ASSISTED PER THIS RN. THIS RN HAS ASSISTED THE PT WITH 9 UNMEASURED BOWEL MOVEMENTS T/O SHIFT. STOOL NOTED BROWN DIARRHEA. MULTIPLE EPISODES OF INCONTINENCE NOTED THIS SHIFT. REMAINED IN CONTACT ENTERIC ISOLATION THIS SHIFT.
[2020-06-04 06:10] LABS: Basophils % 0.1 % (0.1-2.0); Chloride 106 mmol/L (98-107); Eosinophils % 0.1 % (0.1-12.0); Hematocrit 33.3 % (37.0-47.0); Lymphocytes # 1.2 K/mm3 (0.7-4.5); Lymphocytes % 6.6 % (10-50); Mean Corpuscular Hemoglobin 30.1 pg (27.0-31.2); Mean Corpuscular Volume 88.6 fl (81-99); Mean Platelet Volume 8.8 fl (7.4-10.4); Monocytes # 0.6 K/mm3 (0.1-1.0); Monocytes % 3.2 % (1.7-9.3); Neutrophils % 90.2 % (37.0-80.0); Platelet Count 273 K/mm3 (142-424); Red Blood Count 3.76 M/mm3 (4.20-5.40); Red Cell Distribution Width 14.7 % (11.5-17.5); Sodium 137 mmol/L (136-145); White Blood Count 17.7 K/mm3 (4.8-10.8)
[2020-06-04 06:12] LABS: Blood Urea Nitrogen 16 mg/dl (7-17); Creatinine Clearance Estimated 44 mL/min (50-200); Estimated Glomerular Filt Rate 118 ml/min (>60); GFR (African American) 143 ML/MIN (>60)
[2020-06-04 06:13] LABS: Alanine Aminotransferase 19 U/L (12-78); Albumin Level 2.7 g/dl (3.5-5.0); Albumin/Globulin Ratio 0.8 (1.1-1.8); Alkaline Phosphatase 109 U/L (38-126); Anion Gap 8.7 mEq/L (5-15); Aspartate Amino Transferase 20 U/L (14-36); Bilirubin,Total 0.6 mg/dl (0.2-1.3); Calcium 9.5 mg/dl (8.4-10.2); Carbon Dioxide 25 mmol/L (22.0-30.0); Globulin 3.2 g/dL (1.3-3.2); Glucose 111 mg/dl (74-100); Total Protein,Serum 5.9 g/dl (6.3-8.2)
[2020-06-04 06:19] LABS: C-Reactive Protein 315.4 mg/L (0-4)
[2020-06-04 06:22] LABS: Potassium 2.7 mmoL/L (3.5-5.1)
[2020-06-04 06:25] LABS: MANUAL DIFFERENTIAL MANUAL DIFFERENTIAL (MANUAL DIFF)
[2020-06-04 06:35] LABS: Hemoglobin 11.4 g/dL (12.2-16.2)
--- NOTE | 2020-06-04 06:47 | PC.NURSE ---
A&OX3. TOLERATED RA WELL. LUNGS NOTED CLEAR T/O AUSCULTATION. PULSES +2. ABDOMEN NONDISTENDED, ACTIVE BOWEL SOUNDS, SOFT PER PALPATION. MULTIPLE EPISODES OF BROWN DIARRHEA NOTED THIS SHIFT, SOME BEING INCONTINENT EPISODES. PT DRANK MOST OF GOLYTELY BUT REFUSED A PORTION OF IT, APPROXIMATELY A COUPLE INCHES OF THE GOLYTELY REMAINED IN THE BOTTOM OF THE CONTAINER WHEN PT REFUSED TO DRINK THE REST. CONTACT ENTERIC ISOLATION MAINTAINED. EDUCATION PROVIDED TO PT AND FAMILY THIS SHIFT IN REGARDS TO CDIFF. PALMA CATHETER NOTED IN PLACE, DRAINING DARK YELLOW, CLEAR URINE THIS SHIFT. AGAPITO AREA CLEANED MULTIPLE TIMES THIS SHIFT IN RESPONSE TO NUMEROUS BOWEL MOVEMENTS. AGAPITO AREA REMAINED FREE FROM S/S OF INFECTION. VSS. WILL CONTINUE TO MONITOR.
--- NOTE | 2020-06-04 07:08 | HMH.GSPN ---
Subjective Patient reports: no new complaints Exam Vital signs and Labs for Last 24 Hours: Temp Pulse Resp BP Pulse Ox 98.6 F 105 H 18 138/60 94 L 06/04/20 04:00 06/04/20 04:00 06/04/20 04:00 06/04/20 04:00 06/04/20 04:00 Laboratory Results - last 24 hr 06/03/20 06:00: WBC 17.3 H D, RBC 4.28, Hgb 13.2 D, Hct 39.4, MCV 92.1, MCH 30.8, MCHC 33.5, RDW 14.7, Plt Count 305, MPV 8.2, Neut % (Auto) 89.5 H, Lymph % (Auto) 6.4 L, [place] % (Auto) 3.7, Eos % (Auto) 0.2, Baso % (Auto) 0.2, Neut # (Auto) 15.5 H, Lymph # (Auto) 1.1, [place] # (Auto) 0.6, Eos # (Auto) 0.0, Baso # (Auto) 0.0, Total Counted 100, Neutrophils % (Manual) 83 H, Lymphocytes % (Manual) 12, Monocytes % (Manual) 3, Eosinophils % (Manual) 1, Blast Cells % 1.0, Platelet Estimate Normal, RBC Morphology Normal 06/03/20 06:00: Calcium 9.4 D 06/03/20 20:36: Stl Aeromonas (PCR) Not detected, Stl C. cayetanensis PCR Not detected, Stool Rotavirus (PCR) Not detected, Stl Adenov F 40/41 PCR Not detected, Stool Astrovirus (PCR) Not detected, Stool Campylobacter PCR Not detected, Stl C.difficile Tox PCR Detected A, Stool Cryptosporidium PCR Not detected, Stl E.coli Shiga Tox PCR Not detected, Stool E coli O157 PCR Not detected, Stl Enterotoxigenic E PCR Not detected, Stool EPEC (PCR) Not detected, Stool EAEC (PCR) Not detected, Stl E. histolytica PCR Not detected, Stool Giardia Lamblia PCR Not detected, Stool Salmonella PCR Not detected, Stool Sapovirus (PCR) Not detected, Stl P. shigelloides PCR Not detected, Stl Shigella/EIEC PCR Not detected, St Y.enterocolitica PCR Not detected, Stool Vibrio (PCR) Not detected, Stl Vibrio cholerae PCR Not detected, Stl Norovirus GI/GII PCR Not detected 06/04/20 05:43: WBC 17.7 H, RBC 3.76 L, Hgb 11.4 L D, Hct 33.3 L, MCV 88.6, MCH 30.1, MCHC 34.0, RDW 14.7, Plt Count 273, MPV 8.8, Neut % (Auto) 90.2 H, Lymph % (Auto) 6.6 L, [place] % (Auto) 3.2, Eos % (Auto) 0.1, Baso % (Auto) 0.1, Neut # (Auto) 16.0 H, Lymph # (Auto) 1.2, [place] # (Auto) 0.6, Eos # (Auto) 0.0, Baso # (Auto) 0.0 06/04/20 05:43: Sodium 137, Potassium 2.7 L* D, Chloride 106, Carbon Dioxide 25, Anion Gap 8.7, BUN 16, Creatinine 0.50 L, Estimated Creat Clear 44, Estimated GFR 118, Est GFR ( Amer) 143 D, Glucose 111 H, Calcium 9.5, Magnesium 2.0, Total Bilirubin 0.6, AST 20 D, ALT 19 D, Alkaline Phosphatase 109, C-Reactive Protein 315.4 H, Total Protein 5.9 L D, Albumin 2.7 L D, Globulin 3.2, Albumin/Globulin Ratio 0.8 L I & O for Last 24 hours: Intake & Output 06/01/20 06/02/20 06/03/20 06/04/20 11:59 11:59 11:59 11:59 Intake Total 1402 / 1402 1991 Output Total 1700 / 1700 400 / 400 Balance -298 / -298 1592 / 1592 Weight 131 lb 9 oz 140 lb 5 oz Narrative: Stool studies positive for C. difficile - Constitutional no acute distress - *Routine Respiratory Exam Absent: respiratory distress - *Routine Cardiovascular Exam Present: RRR Progress Note: A&P (1) Enterocolitis Status: Acute Current Visit: Yes (2) Abdominal pain Status: Acute Current Visit: Yes (3) Acute urinary retention Status: Acute Current Visit: Yes (4) Hydronephrosis Status: Acute Current Visit: Yes (5) History of Crohn's disease Status: Acute Current Visit: Yes (6) Clostridium difficile colitis Status: Acute Assessment and plan: Management as per primary service Plans for colonoscopy postponed secondary to known diagnosis of C. difficile and hypokalemia Current Visit: Yes (7) Hypokalemia Status: Acute Assessment and plan: Potassium replacement as per primary service Plans for colonoscopy postponed Current Visit: Yes
[2020-06-04 07:13] LABS: Erythrocyte Sedimentation Rate 128 mm/hr (0-30)
[2020-06-04 08:00] VITALS: BP 158/81; PULSE 112; RESP 16; TEMP 37.1; O2SAT 95
--- NOTE | 2020-06-04 08:02 | HMH.ACPN2 ---
Internal Medicine - PN: Subj *Date: 06/04/20 *Time: 08:02 Interval history: Overall patient feels some better compared to yesterday. No diarrhea. Pain is much improved. Exam Vital signs and Labs for Last 24 Hours: Temp Pulse Resp BP Pulse Ox 98.6 F 105 H 18 138/60 94 L 06/04/20 04:00 06/04/20 04:00 06/04/20 04:00 06/04/20 04:00 06/04/20 04:00 Laboratory Results - last 24 hr 06/03/20 06:00: Total Counted 100, Neutrophils % (Manual) 83 H, Lymphocytes % (Manual) 12, Monocytes % (Manual) 3, Eosinophils % (Manual) 1, Blast Cells % 1.0, Platelet Estimate Normal, RBC Morphology Normal 06/03/20 20:36: Stl Aeromonas (PCR) Not detected, Stl C. cayetanensis PCR Not detected, Stool Rotavirus (PCR) Not detected, Stl Adenov F 40/41 PCR Not detected, Stool Astrovirus (PCR) Not detected, Stool Campylobacter PCR Not detected, Stl C.difficile Tox PCR Detected A, Stool Cryptosporidium PCR Not detected, Stl E.coli Shiga Tox PCR Not detected, Stool E coli O157 PCR Not detected, Stl Enterotoxigenic E PCR Not detected, Stool EPEC (PCR) Not detected, Stool EAEC (PCR) Not detected, Stl E. histolytica PCR Not detected, Stool Giardia Lamblia PCR Not detected, Stool Salmonella PCR Not detected, Stool Sapovirus (PCR) Not detected, Stl P. shigelloides PCR Not detected, Stl Shigella/EIEC PCR Not detected, St Y.enterocolitica PCR Not detected, Stool Vibrio (PCR) Not detected, Stl Vibrio cholerae PCR Not detected, Stl Norovirus GI/GII PCR Not detected 06/04/20 05:43: WBC 17.7 H, RBC 3.76 L, Hgb 11.4 L D, Hct 33.3 L, MCV 88.6, MCH 30.1, MCHC 34.0, RDW 14.7, Plt Count 273, MPV 8.8, Neut % (Auto) 90.2 H, Lymph % (Auto) 6.6 L, [place] % (Auto) 3.2, Eos % (Auto) 0.1, Baso % (Auto) 0.1, Neut # (Auto) 16.0 H, Lymph # (Auto) 1.2, [place] # (Auto) 0.6, Eos # (Auto) 0.0, Baso # (Auto) 0.0 06/04/20 05:43: Sodium 137, Potassium 2.7 L* D, Chloride 106, Carbon Dioxide 25, Anion Gap 8.7, BUN 16, Creatinine 0.50 L, Estimated Creat Clear 44, Estimated GFR 118, Est GFR ( Amer) 143 D, Glucose 111 H, Calcium 9.5, Magnesium 2.0, Total Bilirubin 0.6, AST 20 D, ALT 19 D, Alkaline Phosphatase 109, C-Reactive Protein 315.4 H, Total Protein 5.9 L D, Albumin 2.7 L D, Globulin 3.2, Albumin/Globulin Ratio 0.8 L 06/04/20 05:43: ESR 128 H I & O for Last 24 hours: Intake & Output 06/01/20 06/02/20 06/03/20 06/04/20 11:59 11:59 11:59 11:59 Intake Total 1402 / 1402 1991 Output Total 1700 / 1700 400 / 400 Balance -298 / -298 1592 / 1592 Weight 131 lb 9 oz 140 lb 5 oz Narrative: Patient is alert, pleasant. ENT exam clear. No rash, no thrush. No JVD. Lungs have good air movement. Heart rate regular. Abdomen slightly tender but soft, Urine catheter draining clear yellow urine. No extremity edema or clubbing. Neurologically intact. Assessment and Plan (1) Enterocolitis Current visit: Yes Status: Acute Category: Medical Code(s): K52.9 - Noninfective gastroenteritis and colitis, unspecified (2) Abdominal pain Current visit: Yes Status: Acute Category: Medical Code(s): R10.9 - Unspecified abdominal pain (3) Acute urinary retention Current visit: Yes Status: Acute Category: Medical Code(s): R33.8 - Other retention of urine (4) Hydronephrosis Current visit: Yes Status: Acute Category: Medical Code(s): N13.30 - Unspecified hydronephrosis (5) History of Crohn's disease Current visit: Yes Status: Acute Category: Medical Code(s): Z87.19 - Personal history of other diseases of the digestive system (6) Clostridium difficile colitis Current visit: Yes Status: Acute Category: Medical Code(s): A04.72 - Enterocolitis due to Clostridium difficile, not specified as recurrent (7) Hypokalemia Current visit: Yes Status: Acute Category: Medical Code(s): E87.6 - Hypokalemia - Assessment and plan all Dx Assessment and Plan for all problems:: 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
[2020-06-04 08:41] LABS: Lymphocytes % 5 % (10-50); Neutrophils % 93 % (42-76); Platelet Estimate Normal; RBC Morphology Normal; Total Cells Counted 100
--- NOTE | 2020-06-04 08:43 | PC.NURSE ---
0659 ASKED THIS NURSE TO CALL THE ORDER EDITOR TEAM AND TELL THEM THAT THE COLONOSCOPY THAT WAS SCHEDULED FOR THIS PT HAS BEEN CANCELED DUE TO HYPOKALEMIA AND DX OF C.DIFF. LINDA FRANKLIN,PARAS TA,AND JANA DASH WERE NOTIFIED.
[2020-06-04 16:00] VITALS: BP 146/80; PULSE 102; RESP 17; TEMP 37.3; O2SAT 93
--- NOTE | 2020-06-04 16:46 | PC.NURSE ---
pt stable this shift. Pt has had 3 episodes of diarrhea. Appetite is decreased. Slept most of shift as she was up all night with diarrhea secondary to Golytely. New PIV started in right FA. LR @ 125ml/hr infusing. Diet advanced to full liquids for supper per Dr. Danielson. 7lb weight gain in last 24hrs. Currently has Cdiff. Daughter brought in advanced directives for [facility] chart. Pt has LW and HCS. She is alert, oriented and wishes to remain a FULL CODE @ this time.
[2020-06-04 20:00] VITALS: BP 157/79; PULSE 111; RESP 24; TEMP 36.8; O2SAT 91
[2020-06-05] VITALS: BP 140/71; PULSE 95; RESP 24; TEMP 37.7; O2SAT 93
--- NOTE | 2020-06-05 03:36 | PC.NURSE ---
A&OX3. 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 TOLERATED RA WELL. LUNGS NOTED CLEAR T/O AUSCULTATION. ABDOMEN NOTED FLAT, ACTIVE BOWEL SOUNDS, SOFT AND NONTENDER PER PALPATION. ONLY ONE SMALL EPISODE OF BROWN DIARRHEA NOTED THIS SHIFT, THIS WAS AN INCONTINENT EPISODE. CONTACT ENTERIC ISOLATION MAINTAINED T/O SHIFT. PULSES +2, CAP REFILL <3SEC. PALMA CATHETER REMAINED IN PLACE, PATENT AND DRAINING CLEAR YELLOW URINE. [place] AREA CDI, NO S/S OF INFECTION. PT RESTED WELL THIS SHIFT. VSS. WILL CONTINUE TO MONITOR.
[2020-06-05 04:00] VITALS: BP 153/92; PULSE 109; RESP 20; TEMP 37.4; O2SAT 93
[2020-06-05 05:00] VITALS: BMI 24.0
[2020-06-05 06:07] LABS: Basophils % 0.1 % (0.1-2.0); Eosinophils # 0.1 K/mm3 (0.0-0.4); Eosinophils % 0.8 % (0.1-12.0); Hematocrit 38.1 % (37.0-47.0); Hemoglobin 12.8 g/dL (12.2-16.2); Lymphocytes # 1.3 K/mm3 (0.7-4.5); Lymphocytes % 7.5 % (10-50); Mean Corpuscular HGB Conc 33.5 g/dL (31.8-35.4); Mean Corpuscular Volume 89.5 fl (81-99); Mean Platelet Volume 8.2 fl (7.4-10.4); Monocytes # 0.7 K/mm3 (0.1-1.0); Monocytes % 4.2 % (1.7-9.3); Neutrophils # 15.5 K/mm3 (1.8-7.8); Neutrophils % 87.5 % (37.0-80.0); Platelet Count 313 K/mm3 (142-424); Red Blood Count 4.26 M/mm3 (4.20-5.40); Red Cell Distribution Width 14.5 % (11.5-17.5); White Blood Count 17.7 K/mm3 (4.8-10.8)
[2020-06-05 06:10] LABS: Chloride 108 mmol/L (98-107); Sodium 139 mmol/L (136-145)
[2020-06-05 06:12] LABS: MANUAL DIFFERENTIAL MANUAL DIFFERENTIAL (MANUAL DIFF)
[2020-06-05 06:13] LABS: Blood Urea Nitrogen 6 mg/dl (7-17); Carbon Dioxide 25 mmol/L (22.0-30.0); Creatinine Clearance Estimated 44 mL/min (50-200); Estimated Glomerular Filt Rate 153 ml/min (>60); GFR (African American) 185 ML/MIN (>60)
[2020-06-05 06:14] LABS: Calcium 9.1 mg/dl (8.4-10.2); Glucose 157 mg/dl (74-100)
--- NOTE | 2020-06-05 06:33 | P.PN_ITS ---
Subjective Patient reports: no new complaints, feels better Exam Vital signs and Labs for Last 24 Hours: Temp Pulse Resp BP Pulse Ox 99.8 F H 95 H 24 140/71 93 L 06/05/20 00:00 06/05/20 00:00 06/05/20 00:00 06/05/20 00:00 06/05/20 00:00 Laboratory Results - last 24 hr 06/04/20 05:43: Hgb 11.4 L D, Total Counted 100, Neutrophils % (Manual) 93 H, Band Neutrophils % 2.0, Lymphocytes % (Manual) 5 L, Platelet Estimate Normal, RBC Morphology Normal 06/04/20 05:43: ESR 128 H 06/05/20 05:52: WBC 17.7 H, RBC 4.26, Hgb 12.8, Hct 38.1, MCV 89.5, MCH 30.0, MCHC 33.5, RDW 14.5, Plt Count 313, MPV 8.2, Neut % (Auto) 87.5 H, Lymph % (Auto) 7.5 L, [place] % (Auto) 4.2, Eos % (Auto) 0.8, Baso % (Auto) 0.1, Neut # (Auto) 15.5 H, Lymph # (Auto) 1.3, [place] # (Auto) 0.7, Eos # (Auto) 0.1, Baso # (Auto) 0.0 06/05/20 05:52: Sodium 139, Potassium 3.0 L, Chloride 108 H, Carbon Dioxide 25, Anion Gap 9.0, BUN 6 L D, Creatinine 0.40 L, Estimated Creat Clear 44, Estimated GFR 153, Est GFR ( Amer) 185 D, Glucose 157 H, Calcium 9.1 I & O for Last 24 hours: Intake & Output 06/02/20 06/03/20 06/04/20 06/05/20 11:59 11:59 11:59 11:59 Intake Total 1402 / 1402 1991 / 1991 1826 / 1826 Output Total 1700 / 1700 400 / 400 1999 Balance -298 / -298 1592 / 1592 -174 / -174 Weight 131 lb 9 oz 140 lb 5 oz Microbiology Reports for the Last 24 Hours: Microbiology 06/02/20 22:15 Blood Blood Culture - Preliminary NO GROWTH AFTER 48 HOURS 06/02/20 22:15 Blood Blood Culture - Preliminary NO GROWTH AFTER 48 HOURS - Constitutional no acute distress - *Routine Respiratory Exam Absent: respiratory distress - *Routine Cardiovascular Exam Present: RRR Progress Note: A&P (1) Enterocolitis Status: Acute Current Visit: Yes (2) Abdominal pain Status: Resolved Current Visit: Yes (3) Acute urinary retention Status: Acute Current Visit: Yes (4) Hydronephrosis Status: Acute Current Visit: Yes (5) History of Crohn's disease Status: Acute Assessment and plan: Gastroenterology consultation pending Current Visit: Yes (6) Clostridium difficile colitis Status: Acute Assessment and plan: Oral, clinically improving. White blood cell count remains elevated. Continue management as per primary service Current Visit: Yes (7) Hypokalemia Status: Acute Current Visit: Yes
--- NOTE | 2020-06-05 07:35 | PC.NURSE ---
Notified Norma in pre-op about Dr. Webb consult on pt. Dr. Webb will be here tomorrow.
--- NOTE | 2020-06-05 07:50 | P.PN_ITS ---
Internal Medicine - PN: Subj *Date: 06/05/20 *Time: 08:00 Interval history: Overall doing well this morning. Some mild improvement in her abdominal discomfort. Reports some bloating and gas after eating breakfast. Has had loose stools since yesterday. Diagnosed with C. difficile yesterday, initiated on vancomycin orally. Denies any nausea or vomiting. Bardales still in place, interested in trying having Bardales catheter out, I agree with a voiding challenge today. Denies shortness of breath, chest pain, syncope, confusion. Has tolerated multiple meals of full liquid diet without difficulty. Afebrile and hemodynamically stable. Labs reviewed this morning which shows consistent eleva maría white cell count but otherwise electrolytes and kidney function normalizing. Exam Narrative: Patient is alert, pleasant, sitting in bedside chair on exam this morning Lungs have good air movement, no wheeze or rhonchi Heart rate regular. Abdomen with interval distention but soft and interval improvement in tenderness. Bowel sounds hypoactive. No rebound or guarding Urine catheter draining clear yellow urine. No extremity edema or clubbing. Neurologically intact. Assessment and Plan (1) Clostridium difficile colitis Current visit: Yes Status: Acute Category: Medical Code(s): A04.72 - Enterocolitis due to Clostridium difficile, not specified as recurrent (2) Enterocolitis Current visit: Yes Status: Acute Category: Medical Code(s): K52.9 - Noninfective gastroenteritis and colitis, unspecified (3) Abdominal pain Current visit: Yes Status: Resolved Category: Medical Code(s): R10.9 - Unspecified abdominal pain (4) Acute urinary retention Current visit: Yes Status: Acute Category: Medical Code(s): R33.8 - Other retention of urine (5) Hydronephrosis Current visit: Yes Status: Acute Category: Medical Code(s): N13.30 - Unspecified hydronephrosis (6) History of Crohn's disease Current visit: Yes Status: Acute Category: Medical Code(s): Z87.19 - Personal history of other diseases of the digestive system (7) Hypokalemia Current visit: Yes Status: Acute Category: Medical Code(s): E87.6 - Hypokalemia - Assessment and plan all Dx Assessment and Plan for all problems:: 79-year-old female with C. difficile colitis and obstructive uropathy. Voiding trial today, will remove Bardales catheter this morning. Advance diet to bland's. Make her n.p.o. at midnight for GI consult in the morning. Continue IV fluids. Continue p.o. medication for C. difficile. Encouraged to ambulate. Continues to require inpatient management.
[2020-06-05 08:00] VITALS: BP 150/57; PULSE 81; RESP 20; TEMP 36.8; O2SAT 98
[2020-06-05 08:08] LABS: Lymphocytes % 9 % (10-50); Monocytes % 7 % (2-9); Neutrophils % 84 % (42-76); Platelet Estimate Normal; RBC Morphology Normal; Total Cells Counted 100
--- NOTE | 2020-06-05 08:20 | PC.NURSE ---
PT HAD AN ADDITIONAL 2 INCONTINENT EPISODES OF STOOL. 1 MEDIUM BROWN/GREEN LIQUID STOOL AND 1 LARGE BROWN/GREEN LIQUID STOOL. PT ASSISTED X1 WITH BATH AND LINEN CHANGE.
[2020-06-05 16:00] VITALS: BP 160/90; PULSE 89; RESP 20; TEMP 36.9; O2SAT 97
--- NOTE | 2020-06-05 16:46 | XR_ITS ---
PROCEDURE: XR KUB CLINICAL INDICATION: firm abd, pain, distention COMPARISON: CT CT ABDOMEN PELVIS W CON from 06/02/2020 FINDINGS: There has been interval development mildly gaseous distended small bowel loops. Ileus or small-bowel obstruction is considered. There is increased density within the pelvis consistent with distended urinary bladder. Some small bowel loops measure up to 4.4 cm in diameter. IMPRESSION: Interval development of mildly distended small bowel loops which may be due to obstruction or ileus. Increased soft tissue density of the pelvis consistent with distended urinary bladder. Dictated b Shane Valentine MD 06/05/2020 17:14 Shane Valentine MD in [facility] 06/05/2020 17:14
--- NOTE | 2020-06-05 18:15 | PC.NURSE ---
Pt is alert and oriented and able to make needs known. RR even and unlabored. Pt has been made NPO at this time r/t abd distention, pain and firmness. Also KUB ordered per Dr. Cyr. I did make him aware of results and he stated no NG tube at this time since pt isn't having nausea. I am going to replace [place] to ensure pt isn't having urinary retention. Also received order for bentyl, have given per dec. CB in reach and daughter at bedside. Dr Cyr stated pt could have chips and sips but that is all. VSS at this time. BP was slightly elevated, did make Dr. Cyr aware of this and NNO given. MX continues.
[2020-06-05 20:21] VITALS: BP 160/90; PULSE 110; RESP 18; TEMP 37.2; O2SAT 95
[2020-06-06] VITALS (8 sets, daily range): BP systolic 130–196; BP diastolic 76–86; PULSE 78–102; RESP 17–22; TEMP 36.8–37.1; O2SAT 94–98; BMI 23.4
--- NOTE | 2020-06-06 04:14 | PC.NURSE ---
FC DRAINING BRIGHT YELLOW URINE. PT. HAS C/O MID-ABD PAIN X1 RATING 7/10 THIS SHIFT; TX WITH MORPHINE, EFFECTIVENESS REPORTED. PT. HAS HAD SEVERAL LOOSE BM AND 2 EPISODES OF INCONTINENCE. PT. HAS NOT HAD ANY EPISODES OF VOMITING, OR SOA.
[2020-06-06 05:54] LABS: Basophils % 0.2 % (0.1-2.0); Eosinophils # 0.2 K/mm3 (0.0-0.4); Eosinophils % 1.4 % (0.1-12.0); Hematocrit 38.7 % (37.0-47.0); Lymphocytes # 1.7 K/mm3 (0.7-4.5); Lymphocytes % 11.7 % (10-50); Mean Corpuscular HGB Conc 33.7 g/dL (31.8-35.4); Mean Corpuscular Hemoglobin 29.7 pg (27.0-31.2); Mean Platelet Volume 7.9 fl (7.4-10.4); Monocytes # 0.8 K/mm3 (0.1-1.0); Monocytes % 5.4 % (1.7-9.3); Neutrophils # 11.8 K/mm3 (1.8-7.8); Neutrophils % 81.4 % (37.0-80.0); Platelet Count 359 K/mm3 (142-424); Red Blood Count 4.39 M/mm3 (4.20-5.40); Red Cell Distribution Width 14.6 % (11.5-17.5); White Blood Count 14.4 K/mm3 (4.8-10.8)
[2020-06-06 05:55] LABS: Chloride 108 mmol/L (98-107)
[2020-06-06 05:56] LABS: Potassium 3.2 mmoL/L (3.5-5.1); Sodium 139 mmol/L (136-145)
[2020-06-06 05:59] LABS: Anion Gap 10.2 mEq/L (5-15); Blood Urea Nitrogen 5 mg/dl (7-17); Calcium 9.2 mg/dl (8.4-10.2); Carbon Dioxide 24 mmol/L (22.0-30.0); Creatinine Clearance Estimated 43 mL/min (50-200); Estimated Glomerular Filt Rate 153 ml/min (>60); GFR (African American) 185 ML/MIN (>60); Glucose 147 mg/dl (74-100); Magnesium 1.7 mg/dl (1.6-2.3)
--- NOTE | 2020-06-06 08:54 | HMH.ACPN2 ---
Internal Medicine - PN: Subj *Date: 06/06/20 *Time: 13:49 Interval history: Patient had episode of abdominal pain yesterday afternoon. KUB showed small bowel distention along with distention of bladder and urinary retention. Bardales catheter replaced because she had voided minimally throughout the day. Abdominal pain better this morning. Denies any nausea. Improvement in her white cell count. Urine output of 700 cc after placement of Bardales. Afebrile, hemodynamically stable. Overall doing better. Exam Vital signs and Labs for Last 24 Hours: Temp Pulse Resp BP Pulse Ox 98.6 F 102 H 17 150/82 H 98 06/06/20 04:00 06/06/20 04:00 06/06/20 04:00 06/06/20 04:06 06/06/20 08:03 Laboratory Results - last 24 hr 06/06/20 05:43: WBC 14.4 H, RBC 4.39, Hgb 13.0, Hct 38.7, MCV 88.0, MCH 29.7, MCHC 33.7, RDW 14.6, Plt Count 359, MPV 7.9, Neut % (Auto) 81.4 H, Lymph % (Auto) 11.7, [place] % (Auto) 5.4, Eos % (Auto) 1.4, Baso % (Auto) 0.2, Neut # (Auto) 11.8 H, Lymph # (Auto) 1.7, [place] # (Auto) 0.8, Eos # (Auto) 0.2, Baso # (Auto) 0.0 06/06/20 05:43: Sodium 139, Potassium 3.2 L, Chloride 108 H, Carbon Dioxide 24, Anion Gap 10.2, BUN 5 L, Creatinine 0.40 L, Estimated Creat Clear 43, Estimated GFR 153, Est GFR ( Amer) 185, Glucose 147 H, Calcium 9.2, Magnesium 1.7 D I & O for Last 24 hours: Intake & Output 06/03/20 06/04/20 06/05/20 06/06/20 23:59 23:59 23:59 23:59 Intake Total 2554 / 2554 2666 / 2666 3621 / 3621 1139 / 1139 Output Total 1700 / 1700 1600 / 2400 3050 / 3050 2650 / 2650 Balance 854 / 854 1066 / 266 571 / 571 -1511 / -1511 Weight 59.676 kg 63.645 kg 63.701 kg 62.312 kg Microbiology Reports for the Last 24 Hours: Microbiology 06/04/20 09:20 Urine,Catheterized Urine Culture - Preliminary NO GROWTH AFTER 24 HOURS Narrative: Patient is alert, pleasant, sitting in bedside chair on exam this morning Lungs have good air movement, no wheeze or rhonchi Heart rate regular. Abdomen with interval distention but soft; tenderness mainly in LLQ. Bowel sounds hypoactive. No rebound or guarding Urine catheter draining clear yellow urine. No extremity edema or clubbing. Neurologically intact. Assessment and Plan (1) Clostridium difficile colitis Current visit: Yes Status: Acute Category: Medical Code(s): A04.72 - Enterocolitis due to Clostridium difficile, not specified as recurrent (2) Enterocolitis Current visit: Yes Status: Acute Category: Medical Code(s): K52.9 - Noninfective gastroenteritis and colitis, unspecified (3) Abdominal pain Current visit: Yes Status: Resolved Category: Medical Code(s): R10.9 - Unspecified abdominal pain (4) Acute urinary retention Current visit: Yes Status: Acute Category: Medical Code(s): R33.8 - Other retention of urine (5) Hydronephrosis Current visit: Yes Status: Acute Category: Medical Code(s): N13.30 - Unspecified hydronephrosis (6) History of Crohn's disease Current visit: Yes Status: Acute Category: Medical Code(s): Z87.19 - Personal history of other diseases of the digestive system (7) Hypokalemia Current visit: Yes Status: Acute Category: Medical Code(s): E87.6 - Hypokalemia - Assessment and plan all Dx Assessment and Plan for all problems:: 79-year-old female C. difficile colitis. Experiencing some ileus, will resume liquid diet today as she is having passage of flatus. Denies any nausea or vomiting. White cell count improving. Unfortunately had to replace Bardales catheter yesterday due to retention. Will initiate tamsulosin today, plan to leave catheter in place with follow-up next week with Dr. Hodgson. If shows tolerance of p.o. intake, will plan to discharge in the morning.
--- NOTE | 2020-06-06 12:02 | P.PN_ITS ---
Internal Medicine - PN: Subj *Date: 06/06/20 *Time: 12:02 Exam Vital signs and Labs for Last 24 Hours: Temp Pulse Resp BP Pulse Ox 98.3 F 87 18 196/82 H 98 06/06/20 08:00 06/06/20 08:00 06/06/20 08:00 06/06/20 08:00 06/06/20 08:03 Laboratory Results - last 24 hr 06/06/20 05:43: WBC 14.4 H, RBC 4.39, Hgb 13.0, Hct 38.7, MCV 88.0, MCH 29.7, MCHC 33.7, RDW 14.6, Plt Count 359, MPV 7.9, Neut % (Auto) 81.4 H, Lymph % (Auto) 11.7, [place] % (Auto) 5.4, Eos % (Auto) 1.4, Baso % (Auto) 0.2, Neut # (Auto) 11.8 H, Lymph # (Auto) 1.7, [place] # (Auto) 0.8, Eos # (Auto) 0.2, Baso # (Auto) 0.0 06/06/20 05:43: Sodium 139, Potassium 3.2 L, Chloride 108 H, Carbon Dioxide 24, Anion Gap 10.2, BUN 5 L, Creatinine 0.40 L, Estimated Creat Clear 43, Estimated GFR 153, Est GFR ( Amer) 185, Glucose 147 H, Calcium 9.2, Magnesium 1.7 D I & O for Last 24 hours: Intake & Output 06/03/20 06/04/20 06/05/20 06/06/20 23:59 23:59 23:59 23:59 Intake Total 2554 / 2554 2666 / 2666 3621 / 3621 1139 / 1139 Output Total 1700 / 1700 1600 / 2400 3050 / 3050 2650 / 2650 Balance 854 / 854 1066 / 266 571 / 571 -1511 / -1511 Weight 59.676 kg 63.645 kg 63.701 kg 62.312 kg Microbiology Reports for the Last 24 Hours: Microbiology 06/04/20 09:20 Urine,Catheterized Urine Culture - Final NO GROWTH AFTER 48 HOURS Assessment and Plan (1) Clostridium difficile colitis Current visit: Yes Status: Acute Category: Medical Code(s): A04.72 - Enterocolitis due to Clostridium difficile, not specified as recurrent (2) Enterocolitis Current visit: Yes Status: Acute Category: Medical Code(s): K52.9 - Noninfective gastroenteritis and colitis, unspecified (3) Abdominal pain Current visit: Yes Status: Resolved Category: Medical Code(s): R10.9 - Unspecified abdominal pain (4) Acute urinary retention Current visit: Yes Status: Acute Category: Medical Code(s): R33.8 - Other retention of urine (5) Hydronephrosis Current visit: Yes Status: Acute Category: Medical Code(s): N13.30 - Unspecified hydronephrosis (6) History of Crohn's disease Current visit: Yes Status: Acute Category: Medical Code(s): Z87.19 - Personal history of other diseases of the digestive system (7) Hypokalemia Current visit: Yes Status: Acute Category: Medical Code(s): E87.6 - Hypokalemia The patient's infection will respond to the chosen ABx?: Yes (DIVERTICULITIS/COLITIS) Is the patient receiving the right drug, dose, and route?: Yes Could a more targeted ABx be ordered?: No (NO CULTURES OBTAINED FOR DIVERTICULITIS/COLITIS) 0 (7-10DAYS)
--- NOTE | 2020-06-06 13:16 | HMH.GEROBB ---
Gastroenterology Consult Consult:: Gastroenterology Consultation Date of Service-June 06, 2020 History of Present Illness: Mrs. Chung is an 79-year-old female with some recent constipation. She was admitted and given a bowel preparation. She then developed diarrhea. The patient's PCR gastrointestinal panel did show C. difficile. The patient did have a longer history of Crohn's disease diagnosed in her 40s. She has not been on any maintenance of remission therapy. Most of her gastroenterology care was in [place]. Her last colonoscopy was there 3 years ago. More recently, the patient has had constipation. She also has had urinary retention and has seen Dr. Piotr Hodgson (urology) and had catheterization with retained urine. She also had a recent injection of the SI joint and has some chronic sacral back pain. The patient reports no recent use of antibiotics. She does state that she had C. difficile colitis 20 years ago. The patient CT scan of the abdomen and pelvis on June 02 did show some mild thickening of the distal ileum and mild thickening of the entire colon. There was some diverticulosis in the descending and sigmoid colon. There was also evidence of gallstones with a mildly distended gallbladder. The patient's lab work did show positive C. difficile toxin by PCR. The remainder of her PCR study was negative. Her white blood cell count was 17.7 thousand with hemoglobin 11.4 and hematocrit 33.3. Her C-reactive protein was 315.4 (markedly elevated). Her liver chemistries were normal. Past Medical History: 1. Prior history of Crohn's disease 2. GERD 3. Hyperlipidemia 4. Hypertension 5. Breast cancer 6. Osteoarthritis Past Surgical History: 1. Total hysterectomy 2. Mastectomy Medications: 1. Atorvastatin 2. Amlodipine 3. Celebrex 4. Diclofenac gel 5. Lexapro 6. Omeprazole 7. Tramadol 8. 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 She now lives in [place]. She reports no tobacco and alcohol socially. Family History: See chart Review of Systems: See chart Physical Examination: Gen.: The patient is a well-developed well-nourished individual in no acute distress HEENT: Normocephalic/atraumatic extraocular movements are intact anicteric Neck: Supple no lymphadenopathy Chest: Clear to auscultation Cardiovascular: Regular rate and rhythm Abdomen: Normoactive bowel sounds soft, minimal tenderness in the lower quadrants, minimal distention, no hepatosplenomegaly Extremities: No edema Labs: See chart Radiology: See chart Impression/Plan: 1. C. difficile colitis. The patient's last episode was more than a decade ago and I would consider this once again initial episode because first and second recurrence as well as third recurrence implies longer course of therapy. I would treat standardly with vancomycin 125 mg by mouth 4 times daily for 14 days presently. Probiotics have not been shown definitively to prevent C. difficile. In other words, no single probiotic agent has shown reproducible efficacy for prevention of C. difficile colitis. We do know that proton pump inhibitors may increase risk for C. difficile. 2. Chronic constipation. I did indicate that when this C. difficile has been treated and eradicated, I would consider a fiber bowel regimen. This would be if her constipation recurs. I do feel the tramadol probably plays some role. Certainly NSAIDs including diclofenac gel and Nguyen 2 inhibitor (plus NSAID) acts similarly to NSAID. 3. Chronic Crohn's disease. This appears to be Crohn's ileitis but the patient has been in clinical remission for years. Given her markedly elevated C-reactive protein, I do feel that she has some ongoing disease activity. I do feel that a colonoscopy is warranted after the C. difficile resolves. We did discuss some dietary measures today to follow.
--- NOTE | 2020-06-06 13:58 | PC.NURSE ---
PT WILL NEED A BEDSIDE COMMODE D/T DISTANCE TO AMBULATE TO THE RESTROOM AT HOME AND THE DIAGNOSIS OF C.DIFF
--- NOTE | 2020-06-06 14:04 | SW/DCPLANNER ---
Addendum entered by Julissa Martinez 06/06/20 14:44: Viviana from [facility] has stated that patient information has been reviewed and BSC will be delivered to patients home. Original Note: Patient information and order has been faxed to [facility] for this patient to have a bedside commode. I will follow up with [employer] once patient information/order is reviewed. I will ask Shashi to deliver to patients home once reviewed. Patient will discharge home tomorrow.
[2020-06-07 04:00] VITALS: BP 154/76; PULSE 103; RESP 17; TEMP 37.1; O2SAT 94
[2020-06-07 04:25] LABS: Microscopic, Urine URINE MICROSCOPIC (MICROSCOPIC)
--- NOTE | 2020-06-07 04:28 | PC.NURSE ---
PT. HAS HAD SEVERAL EPISODES OF LOOSE STOOL, SMALL IN AMOUNT. PT. MAIN COMPLAINT HAS BEEN ABD CRAMPING AND NAUSEA. FC REMAINS , DRAINING LIGHT YELLOW URINE. PT. DENIES DIZZINESS OR SOA.
[2020-06-07 04:32] LABS: Appearance,Urine CLEAR (Clear); Bilirubin,Urine Negative (Negative); Blood, Urine 2+ (Negative); Color,Urine YELLOW (Yellow); Glucose,Urine (UA) Negative (Negative); Ketones,Urine Negative (Negative); Leukocyte Esterase,Urine Negative (Negative); Nitrate,Urine Negative (Negative); Protein,Urine TRACE (Negative); Urobilinogen,Urine 0.2 EU/dl (0.2)
[2020-06-07 04:34] LABS: WBC,Urine Occasional #/hpf (0-3)
[2020-06-07 05:00] VITALS: BMI 23.3
[2020-06-07 06:21] LABS: Basophils # 0.1 K/mm3 (0-0.2); Basophils % 0.4 % (0.1-2.0); Eosinophils # 0.2 K/mm3 (0.0-0.4); Eosinophils % 1.9 % (0.1-12.0); Hematocrit 38.4 % (37.0-47.0); Hemoglobin 13.1 g/dL (12.2-16.2); Lymphocytes # 1.8 K/mm3 (0.7-4.5); Lymphocytes % 14.4 % (10-50); Mean Corpuscular HGB Conc 34.1 g/dL (31.8-35.4); Mean Corpuscular Hemoglobin 29.4 pg (27.0-31.2); Mean Corpuscular Volume 86.3 fl (81-99); Mean Platelet Volume 8.5 fl (7.4-10.4); Monocytes % 7.9 % (1.7-9.3); Neutrophils # 9.4 K/mm3 (1.8-7.8); Neutrophils % 75.4 % (37.0-80.0); Platelet Count 349 K/mm3 (142-424); Red Blood Count 4.44 M/mm3 (4.20-5.40); Red Cell Distribution Width 14.8 % (11.5-17.5); White Blood Count 12.4 K/mm3 (4.8-10.8)
[2020-06-07 06:40] LABS: Chloride 108 mmol/L (98-107); Potassium 3.4 mmoL/L (3.5-5.1); Sodium 138 mmol/L (136-145)
[2020-06-07 06:43] LABS: Alanine Aminotransferase 15 U/L (12-78); Albumin Level 2.6 g/dl (3.5-5.0); Albumin/Globulin Ratio 0.9 (1.1-1.8); Alkaline Phosphatase 86 U/L (38-126); Anion Gap 9.4 mEq/L (5-15); Aspartate Amino Transferase 21 U/L (14-36); Bilirubin,Total 0.5 mg/dl (0.2-1.3); Blood Urea Nitrogen 8 mg/dl (7-17); Calcium 9.2 mg/dl (8.4-10.2); Carbon Dioxide 24 mmol/L (22.0-30.0); Creatinine Clearance Estimated 43 mL/min (50-200); Estimated Glomerular Filt Rate 153 ml/min (>60); GFR (African American) 185 ML/MIN (>60); Globulin 2.9 g/dL (1.3-3.2); Glucose 114 mg/dl (74-100); Total Protein,Serum 5.5 g/dl (6.3-8.2)
--- NOTE | 2020-06-07 07:53 | HMH.DCSUM ---
General - General Admission date:: 06/03/20 Discharge date: 06/07/20 HPI HPI: Ms. Chung is a pleasant 79-year-old female who presented to the emergency room yesterday with abdominal pain. Describes abdominal pain as diffuse, associated with nausea and vomiting after drinking some russell gus. Denies any fevers. Given her weakness, vomiting, abdominal pain, her daughter brought her to the ER for further assessment. She arrived via ambulance where initial work-up consisted of CBC, CMP, CT of her abdomen and pelvis. Imaging showed significant urinary retention with distended bladder and right-sided hydronephrosis. She had a mild leukocytosis with no gross abnormality on her CMP. CT concerning for enterocolitis as well with thickening of the distal ileum and esposito colon. Given her symptom onset, pain, image findings, Bardales catheter was placed with prompt drainage of distended bladder (600 to 800 cc of urine). She was initiated on Levaquin and Flagyl for colitis and initially suspected diverticulitis. Admitted to medicine for further management. This morning she reports, with her daughter at bedside, distant history of Crohn's disease for which she is not on any daily maintenance. Has not had a flare in many years to her knowledge. Labs this morning show an increased white cell count of approximately 17,000. Still has diffuse abdominal pain. Using morphine regularly. Currently n.p.o. for consult for urology. Denies any shortness of breath, chest pain, confusion, flank pain overnight. Hospital Course Hospital Course: 79-year-old female admitted for abdominal pain, elevated white cell count, and pancolitis. Initial work-up concerning for possible UTI, urinary retention, and inflammatory bowel disease. Stool sample obtained was positive for C. difficile. Initiated on appropriate antibiotics with consultation of both urology and gastroenterology during admission. Diet slowly advanced based on tolerance. Patient's white cell count and symptoms gradually improved throughout course of hospitalization. Initially had Bardales placed due to urinary retention, voiding trial performed, unfortunately maintained her retention issues. Bardales was replaced and will be left in place at discharge with plan to follow-up urology as an outpatient to discuss urinary retention difficulty. From a GI standpoint, patient will follow-up as an outpatient for colonoscopy after completing course of antibiotics for C. difficile colitis. Remote history of Crohn's disease but on no medication at this time. Will need colonoscopy to better assess and address diagnosis. Tolerating p.o. intake, hemodynamically stable, improvement in electrolytes, white cell counts, GI symptoms. Medically stable for discharge home. Objective Vital signs: Temp Pulse Resp BP Pulse Ox 98.7 F 103 H 17 154/76 H 94 L 06/07/20 04:00 06/07/20 04:00 06/07/20 04:00 06/07/20 04:00 06/07/20 04:00 Narrative: Patient is alert, pleasant, sitting in bed on exam this morning Lungs have good air movement, no wheeze or rhonchi Heart rate regular. Abdomen with interval distention but soft; tenderness mainly in LLQ. Bowel sounds hypoactive. No rebound or guarding Urine catheter draining clear yellow urine. No extremity edema or clubbing. Neurologically intact. Results Labs on day of discharge: Labs from last 24 hours 06/07/20 06/07/20 06/05/20 06:00 06:00 18:35 WBC 12.4 H RBC 4.44 Hgb 13.1 Hct 38.4 MCV 86.3 MCH 29.4 MCHC 34.1 RDW 14.8 Plt Count 349 MPV 8.5 Neut % (Auto) 75.4 Lymph % (Auto) 14.4 [place] % (Auto) 7.9 Eos % (Auto) 1.9 Baso % (Auto) 0.4 Neut # (Auto) 9.4 H Lymph # (Auto) 1.8 [place] # (Auto) 1.0 Eos # (Auto) 0.2 Baso # (Auto) 0.1 Sodium 138 Potassium 3.4 L Chloride 108 H Carbon Dioxide 24 Anion Gap 9.4 BUN 8 D Creatinine 0.40 L Estimated Creat Clear
[2020-06-07 07:59] VITALS: BP 144/68; PULSE 92; RESP 18; TEMP 36.9; O2SAT 95
[2020-06-07 08:00] VITALS: O2SAT 92
--- NOTE | 2020-06-07 10:51 | HMH.PHAINT ---
DISCHARGE COUNSELING COMPLETED.
--- NOTE | 2020-06-07 11:12 | P.PN_ITS ---
Internal Medicine - PN: Subj *Date: 06/07/20 *Time: 11:12 Exam Vital signs and Labs for Last 24 Hours: Temp Pulse Resp BP Pulse Ox 98.4 F 92 H 18 144/68 H 92 L 06/07/20 07:59 06/07/20 07:59 06/07/20 07:59 06/07/20 07:59 06/07/20 08:00 Laboratory Results - last 24 hr 06/05/20 18:35: Urine Color Yellow, Urine Appearance Clear, Urine pH 7.0, Ur Specific [place] 1.020, Urine Protein Trace, Urine Glucose (UA) Negative, Urine Ketones Negative, Urine Blood 2+, Urine Nitrate Negative, Urine Bilirubin Negative, Urine Urobilinogen 0.2, Ur Leukocyte Esterase Negative, Urine RBC 5- 10, Urine WBC Occasional 06/07/20 06:00: WBC 12.4 H, RBC 4.44, Hgb 13.1, Hct 38.4, MCV 86.3, MCH 29.4, MCHC 34.1, RDW 14.8, Plt Count 349, MPV 8.5, Neut % (Auto) 75.4, Lymph % (Auto) 14.4, [place] % (Auto) 7.9, Eos % (Auto) 1.9, Baso % (Auto) 0.4, Neut # (Auto) 9.4 H, Lymph # (Auto) 1.8, [place] # (Auto) 1.0, Eos # (Auto) 0.2, Baso # (Auto) 0.1 06/07/20 06:00: Sodium 138, Potassium 3.4 L, Chloride 108 H, Carbon Dioxide 24, Anion Gap 9.4, BUN 8 D, Creatinine 0.40 L, Estimated Creat Clear 43, Estimated GFR 153, Est GFR ( Amer) 185, Glucose 114 H, Calcium 9.2, Total Bilirubin 0.5, AST 21, ALT 15, Alkaline Phosphatase 86, Total Protein 5.5 L, Albumin 2.6 L , Globulin 2.9, Albumin/Globulin Ratio 0.9 L I & O for Last 24 hours: Intake & Output 06/04/20 06/05/20 06/06/20 06/07/20 23:59 23:59 23:59 23:59 Intake Total 2666 / 2666 3621 / 3621 3554 / 3554 2354 / 2354 Output Total 1600 / 2400 3050 / 3050 4650 / 4650 1025 / 1025 Balance 1066 / 266 571 / 571 -1096 / -1096 1329 / 1329 Weight 63.645 kg 63.701 kg 62.312 kg 61.915 kg Microbiology Reports for the Last 24 Hours: Microbiology 06/04/20 09:20 Urine,Catheterized Urine Culture - Final NO GROWTH AFTER 48 HOURS Assessment and Plan (1) Clostridium difficile colitis Current visit: Yes Status: Acute Category: Medical Code(s): A04.72 - Enterocolitis due to Clostridium difficile, not specified as recurrent (2) Enterocolitis Current visit: Yes Status: Acute Category: Medical Code(s): K52.9 - Noninfective gastroenteritis and colitis, unspecified (3) Abdominal pain Current visit: Yes Status: Resolved Category: Medical Code(s): R10.9 - Unspecified abdominal pain (4) Acute urinary retention Current visit: Yes Status: Acute Category: Medical Code(s): R33.8 - Other retention of urine (5) Hydronephrosis Current visit: Yes Status: Acute Category: Medical Code(s): N13.30 - Unspecified hydronephrosis (6) History of Crohn's disease Current visit: Yes Status: Acute Category: Medical Code(s): Z87.19 - Personal history of other diseases of the digestive system (7) Hypokalemia Current visit: Yes Status: Acute Category: Medical Code(s): E87.6 - Hypokalemia The patient's infection will respond to the chosen ABx?: Yes Is the patient receiving the right drug, dose, and route?: Yes Could a more targeted ABx be ordered?: No (VANCOMYCIN FOR C.DIFF)
[2020-06-11 22:52] LABS: Lactoferrin, Fecal, Quant. <1.00 ug/mL(g) (0.00-7.24)
[2020-06-17 04:14] LABS: Calprotectin, Fecal 69 ug/g (0-120)
== END 2020-06-07 10:30 | disposition home or self-care (01) ==
LOC: ER 23:36 → 2ND 06-03 15:23
PROVIDERS: Emergency Medicine; Admitting Provider Internal Medicine Adolescent Medicine; Emergency Provider Family Medicine; PCP Internal Medicine Adolescent Medicine; Visit Provider Internal Medicine Adolescent Medicine
DX: A04.72 Enterocolitis due to Clostridium difficile, not specified as recurrent (principal); K52.9 Noninfective gastroenteritis and colitis, unspecified; D64.9 Anemia, unspecified; N13.30 Unspecified hydronephrosis; I10 Essential (primary) hypertension; E78.5 Hyperlipidemia, unspecified; Z79.899 Other long term (current) drug therapy
CPT/HCPCS: 36415; 71045; 74018; 74177; 80048; 80053; 80076; 81001; 82150; 83605; 83630; 83690; 83735; 83993; 84484; 85007; 85025; 85651; 86140; 87040; 87086; 87507; 87581; 87633; 87798; 93005; 96365; 96367; 96375; 99285; G0378; J1956; J2405; J3370; Q9967

== ENCOUNTER → 2020-07-17 10:04 | Outpatient (POV) | payer MEDICARE, OTHER, SELFPAY ==
[2020-07-17 10:22] VITALS: BP 175/74; PULSE 71; RESP 18; O2SAT 98; BMI 21.6
--- NOTE | 2020-07-17 10:22 | P.CONS_ITS ---
[facility] Pain Management SOAP Note Subjective:: Is a pleasant 79-year-old white female who presents today for follow-up. She has been treated for sacroiliitis. Patient says that she got 90% relief after the injection. She is continuing to have relief after the injection. Patient says she is more functional and able to ambulate and stand for longer periods of time. Patient is very pleased with result she got from the injection. She does rate her pain a 1 out of 10 today. Review of Systems General: No recent weight changes, no fever, no sleep disturbances Respiratory: No cough, no shortness of air, no recurring pulmonary infections Cardiovascular/peripheral vascular: No chest pain, no palpitations, no edema, no shortness of breath Gastrointestinal: No new onset incontinence, normal bowel movements reported Genitourinary: No new onset incontinence Musculoskeletal: Intermittent low back pain Psychiatric: Normal mood/affect Neurological: [Denies weakness in extremities], [denies balance issues] Objective:: Physical exam General: Alert and oriented x3, no acute distress, pleasant and cooperative, [on room air] Lungs: Respirations even and unlabored, symmetrical chest expansion Eyes: PERRL Musculoskeletal: Flexion and extension of lumbar spine somewhat guarded secondary to pain, deep tendon reflexes normal, strength in upper and lower extremities [5/5], [abnormal gait noted] Neurological: Speech clear, professional skater equal, no gross sensory deficit Assessment:: Sacroiliitis, Plan:: Overall, the patient is doing well after her injection. We will plan to see her back in 3 months to reassess her symptoms. The patient has been instructed to contact the clinic if she has any concerns before her next appointment. The patient and I specifically discussed risk factors for COVID19. These risks include, but are not limited to age greater than 60, heart or lung disease, diabetes, immunosuppression, and travel. We also discussed NSAIDs may worsen COVID19 infection or symptoms. Patient should not use NSAIDs to treat COVID19 signs or symptoms. Patient was also informed that any type of corticosteroid of any form (oral or injection) will decrease the patient's immune system response and may increase the likelihood of COVID19 infection and symptoms[address] Dr. Klein has reviewed this note and agrees with this plan of care. This note was dictated using voice recognition software and make contain errors or omissions. [facility] History I have reviewed the patient's past medical history: Yes Medical History: Reports:: Cancer (breast), Gastroesophageal Reflux Disease(GERD), Hyperlipidemia, Hypertension, Transient Ischemic Attacks (TIA) Denies:: Diabetes Mellitus Type 1, Diabetes Mellitus Type 2, Internal Pacemaker, MRSA, Seizures *Have you ever received a pneumonia vaccine?: Yes (2018) *Have you received a flu vaccine this season?: No Other Medical History: Reports: Anemia, Arthritis Laterality Cases: Left: Breast Biopsy, Mastectomy, Right: Other Other Surgeries: Yes: Cancer Surgery, Colonoscopy, Hysterectomy-Total. No: Pacemaker Amputation: No Fractures: Yes - *Social History Smoking Status: Never smoker Alcohol Intake: current Alcohol Intake Frequency:: a few times a month Substance Use Type: denies use *Occupational Status:: retired Housing: house Household Members: family *Travel in the last 8 weeks: None Family Hx:: Cancer
[2020-07-17 13:17] LABS: Coronavirus 19 IgG Antibody Positive (Negative); Coronavirus 19 IgM Antibody Positive (Negative)
== END ==
PROVIDERS: Internal Medicine Gastroenterology; PCP Internal Medicine Adolescent Medicine; Visit Provider Clinical Nurse Specialist Family Health
DX: M46.1 Sacroiliitis, not elsewhere classified (principal); Z20.828 Contact with and (suspected) exposure to other viral communicable diseases
CPT/HCPCS: 36415; 86328; 99212; U0003

== ENCOUNTER → 2020-07-17 15:05 | Outpatient (CLI) | payer MEDICARE, OTHER, SELFPAY | PROVIDERS: PCP Internal Medicine Adolescent Medicine; Visit Provider Nurse Practitioner Family | DX: Z03.818 Encounter for observation for suspected exposure to other biological agents ruled out (principal) | CPT/HCPCS: U0003 ==

== ENCOUNTER 2020-07-18 07:35 | Day surgery (SDC) | payer MEDICARE, OTHER, SELFPAY ==
[2020-07-15 14:39] VITALS: BMI 22.6
--- NOTE | 2020-07-17 15:25 | INFXCTL.NOTE ---
Approved in house COVID PCR for upcoming scope with Dr. Webb and positive IgM antibody. Lab aware.
[2020-07-18] VITALS (7 sets, daily range): BP systolic 109–153; BP diastolic 54–74; PULSE 60–90; RESP 15–18; TEMP 36.1–36.9; O2SAT 92–100
--- NOTE | 2020-07-18 08:16 | HMH.ANESCL ---
[facility] Anesthesia Checklist - Patient Identification Patient Identification: Arm Band, Verbal (Name & ) - Structural Data Admitted From: Home Planned Operative Procedure/s: Colonoscopy Consent for Planned Operative Procedure(s) Verified: Yes Verified Documents: Surgical Consent, History and Physical - NPO Status Verified Time NPO: 00:00 - Chart Verification Results Verified: CBC, BMP - Additional verifications Anesthesia Reactions: No Hx Blood Transfusions: Yes - Airway Assessment C-Spine Mobility Assessed: Yes (MP 2, TMD 2, limited neck ROM) TMJ Mobility Assessed: Yes Dentition: Good Dentition - Neurological Assessment Level of Consciousness: Awake, Alert, Appropriate, Follows Commands Hx Seizures: No Numbness or tingling in extremities: No - Anesthesia Plan Anesthesia Risk discussed: Yes Anesthesia Plan: Verified ASA Class: II Anesthesia Type: MAC [facility] History I have reviewed the patient's past medical history: Yes Medical History: Reports:: Cancer (breast), Depression, Gastroesophageal Reflux Disease(GERD), Hyperlipidemia, Hypertension, Transient Ischemic Attacks (TIA) Denies:: Diabetes Mellitus Type 1, Diabetes Mellitus Type 2, Internal Pacemaker, MRSA, Seizures *Have you ever received a pneumonia vaccine?: Yes *Have you received a flu vaccine this season?: Yes Other Medical History: Reports: Anemia, Arthritis Comment:: chronic back pain Anesthesia experience/problems:: No prior complications Laterality Cases: Left: Breast Biopsy, Mastectomy, Right: Other Other Surgeries: Yes: Cancer Surgery, Colonoscopy, Hysterectomy-Total. No: Pacemaker Amputation: No Fractures: Yes - *Social History Last grade of school completed: Advanced degree Smoking Status: Never smoker Alcohol Intake: current Alcohol Intake Frequency:: a few times a month Substance Use Type: denies use *Occupational Status:: other Housing: house Household Members: family *Travel in the last 8 weeks: None Family Hx:: Cancer
--- NOTE | 2020-07-18 08:36 | HMH.PROC ---
[facility] Procedure Note Procedure Note:: Colonoscopy Procedure Report: Colonoscopy with cold biopsies Endoscopist: Geremias Webb II, MD Referring physician: Juan Danielson M.D. Date of Procedure: July 18, 2020 Equipment: Olympus 180 variable stiffness pediatric colonoscope Sedation: MAC sedation Indication: Mrs. Chung is an 79-year-old female with recent changes in her bowel habits. She had constipation followed by diarrhea. She was admitted in mid May and was seen by me in consultation. The patient does have a long history of Crohn's disease diagnosed in her 40s. Most of her digestive disease care was in [place]. Her last colonoscopy was approximately 3 years ago. The patient states that she had C. difficile colitis 20 years ago. Her stool studies in May returned positive for C. difficile toxin by PCR. The patient was treated appropriately with vancomycin. She did have a leukocytosis. She also had a markedly elevated C-reactive protein (315.4). She had mild anemia with hemoglobin 11.4 and hematocrit 33.3. Since discharge, she has markedly improved. She reports no abdominal pain, weight loss, change in her bowel habits or rectal bleeding. She reports no family history of colon cancer. Procedure: Prior to the procedure, a history and physical exam was performed, and patient's medications and allergies were reviewed. The risks, benefits and alternatives of the sedation and procedure were discussed with the patient. All questions were answered and informed consent was obtained. The patient was brought to the procedure room. Patient identification and proposed procedure were verified by the physician and the nurse. The patient was placed in a left lateral decubitus position and the scope was passed under direct vision. Throughout the procedure, the patient's blood pressure, pulse, and oxygen saturations were monitored continuously. The colonoscopy was accomplished without difficulty. The patient tolerated the procedure well. Findings: On digital rectal examination there was normal rectal tone. There were no external hemorrhoids. The colonoscope was introduced through the anal canal to the rectum and advanced to the cecum. The ileocecal valve and appendiceal orifice were identified. The scope was advanced 15 cm into the ileum which appeared grossly normal. There was no evidence of Crohn's ileitis. The scope was then withdrawn into the colon. The cecum, ascending and transverse colon and mucosa were grossly normal. Cold biopsies were taken from the right colon to rule out microscopic colitis. There were extensive scattered diverticuli throughout the descending and sigmoid colon (LEFT colon). There was evidence of pericolonic adhesions in the sigmoid colon (probably from prior hysterectomy). The rectum itself was normal. Upon retroflexion within the rectum there were grade 2 internal hemorrhoids. The preparation was excellent throughout with [place] Preparation Score of 9. The cecal time was 12 minutes. Impression: 1. Extensive left-sided diverticulosis with sigmoid pericolonic adhesions 2. Grade 2 internal hemorrhoids Plan: I would encourage a fiber bowel regimen on a long-term daily maintenance basis. We will discuss additional dietary measures and treatment options.
== END 2020-07-18 09:50 | disposition home or self-care (01) ==
LOC: OUTP 07:37
PROVIDERS: PCP Internal Medicine Adolescent Medicine; Visit Provider Internal Medicine Gastroenterology
PROC: 0DJD8ZZ Inspection of Lower Intestinal Tract, Via Natural or Artificial Opening Endoscopic (ICD-10-PCS; CPT 45378; principal; 2020-07-18 08:30)
DX: K57.30 Diverticulosis of large intestine without perforation or abscess without bleeding (principal); K64.1 Second degree hemorrhoids; K66.0 Peritoneal adhesions (postprocedural) (postinfection); K50.90 Crohn's disease, unspecified, without complications; K21.9 Gastro-esophageal reflux disease without esophagitis; I10 Essential (primary) hypertension; E78.5 Hyperlipidemia, unspecified; Z86.73 Personal history of transient ischemic attack (TIA), and cerebral infarction without residual deficits; Z85.3 Personal history of malignant neoplasm of breast; M19.90 Unspecified osteoarthritis, unspecified site; D64.9 Anemia, unspecified; Z88.8 Allergy status to other drugs, medicaments and biological substances
CPT/HCPCS: 45380; 88305

== ENCOUNTER → 2020-10-30 10:08 | Outpatient (POV) | payer MEDICARE, OTHER, SELFPAY ==
[2020-10-30 11:22] VITALS: BP 141/74; PULSE 74; RESP 18; O2SAT 98; BMI 22.9
--- NOTE | 2020-10-30 11:23 | HMH.PAINSOAP ---
[facility] Pain Management SOAP Note Subjective:: Patient is a pleasant 80-year-old white female who presents today for follow-up. She is been treated for sacroiliitis. She has no pain today she is overall doing extremely well the only time that she has SI joint flareups is when she is riding in a car for a long period of time or walking on uneven ground. She is very conscious about this. We discussed potential remedies to this including lumbar support. ROS General: no recent weight change, no fever, no sleep disturbances Respiratory: no cough, no shortness of air, no recurring pulmonary infections Cardiovascular/Peripheral Vascular: No chest pain, No palpitations, no edema, no shortness of breath. Gastrointestinal: no new onset incontinence, normal bowel movements reported Genitourinary: no new onset incontinence Musculoskeletal: SI joint pain at times Psychiatric: normal mood/ affect Neurological: [denies new onset weakness in extremities], [denies new onset balance issues] Objective:: Physical Exam General: Alert and oriented x3, no acute distress, pleasant and cooperative, [on room air] Lungs: Resps E/U, Symmetrical chest expansion, Eyes: PERRL Musculoskeletal: Flexion and extension of lumbar spine somewhat guarded secondary to pain, deep tendon reflexes normal, strength in upper and lower extremities [5/5], antalgic gait noted Neurological: speech clear, blocker and sewer equal, no gross sensory deficits Assessment:: Sacroiliitis Plan:: We will see the patient back on an as-needed basis she has been instructed to call the office if she has any issues. Dr. Klein has reviewed this note and agrees with this plan of care. This note was dictated using voice recognition software and may contain errors or omissions [facility] History I have reviewed the patient's past medical history: Yes Medical History: Reports:: Cancer (breast), Depression, Gastroesophageal Reflux Disease(GERD), Hyperlipidemia, Hypertension, Transient Ischemic Attacks (TIA) Denies:: Diabetes Mellitus Type 1, Diabetes Mellitus Type 2, Internal Pacemaker, MRSA, Seizures *Have you ever received a pneumonia vaccine?: Yes *Have you received a flu vaccine this season?: Yes Other Medical History: Reports: Anemia, Arthritis Laterality Cases: Left: Breast Biopsy, Mastectomy, Right: Other Other Surgeries: Yes: Cancer Surgery, Colonoscopy, Hysterectomy-Total. No: Pacemaker Amputation: No Fractures: Yes - *Social History Smoking Status: Never smoker Alcohol Intake: current Alcohol Intake Frequency:: a few times a month Substance Use Type: denies use *Occupational Status:: other Housing: house Household Members: family *Travel in the last 8 weeks: None - Psychiatric History Pschychiatric History:: Reports:: Depression Family Hx:: Cancer
== END ==
PROVIDERS: PCP Internal Medicine Adolescent Medicine; Visit Provider Clinical Nurse Specialist Family Health
DX: M46.1 Sacroiliitis, not elsewhere classified (principal)
CPT/HCPCS: 99212; G0463

== ENCOUNTER → 2020-11-27 09:26 | Outpatient (POV) | payer MEDICARE, OTHER, SELFPAY ==
[2020-11-27 09:30] VITALS: BP 118/78; PULSE 74; RESP 18; TEMP 36.3; O2SAT 99; BMI 21.6
--- NOTE | 2020-11-27 09:46 | HMH.PAINSOAP ---
[facility] Pain Management SOAP Note Subjective:: Is a pleasant 80-year-old white female who presents today for follow-up. Patient had bilateral SI joint injections more than 5 months ago. Patient's pain is beginning to return. She had 80% relief for over 3 months. She rates her pain a 3 out of 10 today. has she has a positive Cheikh test Berna's test SI joint compression test and distraction test bilaterally. She is interested in repeating these injections given the efficacy of it. Patient is continuing a home stretching program. She has tried and failed anti-inflammatories. ROS General: no recent weight change, no fever, no sleep disturbances Respiratory: no cough, no shortness of air, no recurring pulmonary infections Cardiovascular/Peripheral Vascular: No chest pain, No palpitations, no edema, no shortness of breath. Gastrointestinal: no new onset incontinence, normal bowel movements reported Genitourinary: no new onset incontinence Musculoskeletal: Bilateral SI joint pain Psychiatric: normal mood/ affect Neurological: [denies new onset weakness in extremities], [denies new onset balance issues] Objective:: Physical Exam General: Alert and oriented x3, no acute distress, pleasant and cooperative, [on room air] Lungs: Resps E/U, Symmetrical chest expansion, Eyes: PERRL Musculoskeletal: Flexion and extension of lumbar spine somewhat guarded secondary to pain, deep tendon reflexes normal, strength in upper and lower extremities [5/5], slightly antalgic gait noted Neurological: speech clear, 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 I will follow-up with her after this reassess her symptoms at that time she has been instructed to call the office if she has any issues prior to her next appointment. Dr. Klein has reviewed this note and agrees with this plan of care. This note was dictated using voice recognition software and may contain errors or omissions [facility] History I have reviewed the patient's past medical history: Yes Medical History: Reports:: Cancer (breast), Depression, Gastroesophageal Reflux Disease(GERD), Hyperlipidemia, Hypertension, Transient Ischemic Attacks (TIA) Denies:: Diabetes Mellitus Type 1, Diabetes Mellitus Type 2, Internal Pacemaker, MRSA, Seizures *Have you ever received a pneumonia vaccine?: Yes *Have you received a flu vaccine this season?: Yes Other Medical History: Reports: Anemia, Arthritis Laterality Cases: Left: Breast Biopsy, Mastectomy, Right: Other Other Surgeries: Yes: Cancer Surgery, Colonoscopy, Hysterectomy-Total. No: Pacemaker Amputation: No Fractures: Yes - *Social History Smoking Status: Never smoker Alcohol Intake: current Alcohol Intake Frequency:: a few times a month Substance Use Type: denies use *Occupational Status:: other Housing: house Household Members: family *Travel in the last 8 weeks: None - Psychiatric History Pschychiatric History:: Reports:: Depression Family Hx:: Cancer
== END ==
PROVIDERS: PCP Internal Medicine Adolescent Medicine; Visit Provider Clinical Nurse Specialist Family Health
DX: M46.1 Sacroiliitis, not elsewhere classified (principal)
CPT/HCPCS: 99212; G0463

== ENCOUNTER 2020-12-19 10:08 | Day surgery (SDC) | payer MEDICARE, OTHER, SELFPAY ==
[2020-12-19 10:29] VITALS: BP 157/81; PULSE 75; RESP 20; TEMP 36.7; O2SAT 97; BMI 23.1
--- NOTE | 2020-12-19 10:59 | HMH.PMPROC ---
- Procedure Date: 12/19/20 Time: 11:00 Anesthesiologist:: Jaya Klein MD Complications:: None Pre-procedure Diagnosis:: Sacroiliitis Post-procedure Diagnosis:: Same Indications for Procedure:: This patient is a pleasant 80-year-old white female who we have been seeing for bilateral hip pain. She is tender over both SI joints. She is positive Berna's test bilaterally. She is positive Cheikh test bilaterally. She is positive SI joint compression test bilaterally. She is positive distraction test bilaterally. She did very well with previous SI joint injections with 3 to 4 months pain relief from her last set of injections. Her pain is now returned. We will do repeat bilateral SI joint injections under fluoroscopy today. Procedure Details:: B/L SI joint injection under fluoroscopy Informed consent was obtained and the risks and benefits of the procedure was explained to the patient. The patient was taken to the procedure room and placed prone on the procedure table. The patient was prepped using ChloraPrep. The skin and subcutaneous tissues overlying the SI joints were anesthetized using lidocaine. I placed a 22-gauge needle first in the left SI joint and second in the right SI joint. Needle placement was confirmed with dye. After this we injected 5 mL bupivacaine 0.25% and Depo-Medrol 40 mg into each SI joint. Patient tolerated the procedure well with no complication. Plan and Disposition:: We will follow-up with her in 2 weeks. Will reevaluate symptoms at that time.
[2020-12-19 11:02] VITALS: BP 125/78; PULSE 75; RESP 18
[2020-12-19 11:03] VITALS: BP 129/78; PULSE 72; RESP 18; O2SAT 98
[2020-12-19 11:20] VITALS: BP 160/68; PULSE 66; RESP 20; O2SAT 97
== END 2020-12-19 11:21 | disposition home or self-care (01) ==
LOC: SC.PAINP 10:11
PROVIDERS: PCP Internal Medicine Adolescent Medicine; Visit Provider Anesthesiology
DX: M46.1 Sacroiliitis, not elsewhere classified (principal); I10 Essential (primary) hypertension; M19.90 Unspecified osteoarthritis, unspecified site; F32.9 Major depressive disorder, single episode, unspecified; D64.9 Anemia, unspecified; Z88.8 Allergy status to other drugs, medicaments and biological substances; K21.9 Gastro-esophageal reflux disease without esophagitis; K57.30 Diverticulosis of large intestine without perforation or abscess without bleeding; F41.9 Anxiety disorder, unspecified; Z86.73 Personal history of transient ischemic attack (TIA), and cerebral infarction without residual deficits; Z85.3 Personal history of malignant neoplasm of breast; Z90.10 Acquired absence of unspecified breast and nipple
CPT/HCPCS: 27096; G0260; J1030; Q9966

== ENCOUNTER → 2021-04-02 11:34 | Outpatient (CLI) | payer MEDICARE, OTHER, SELFPAY ==
[2021-04-02 12:12] LABS: Basophils # 0.1 K/mm3 (0-0.2); Basophils % 0.8 % (0.1-2.0); Eosinophils # 0.2 K/mm3 (0.0-0.4); Eosinophils % 2.6 % (0.1-12.0); Hematocrit 47.1 % (37.0-47.0); Hemoglobin 15.6 g/dL (12.2-16.2); Lymphocytes # 2.7 K/mm3 (0.7-4.5); Lymphocytes % 33.7 % (10-50); Mean Corpuscular HGB Conc 33.1 g/dL (31.8-35.4); Mean Corpuscular Hemoglobin 30.4 pg (27.0-31.2); Mean Corpuscular Volume 91.8 fl (81-99); Mean Platelet Volume 9.3 fl (7.4-10.4); Monocytes # 0.6 K/mm3 (0.1-1.0); Monocytes % 7.1 % (1.7-9.3); Neutrophils # 4.4 K/mm3 (1.8-7.8); Neutrophils % 55.9 % (37.0-80.0); Platelet Count 339 K/mm3 (142-424); Red Blood Count 5.13 M/mm3 (4.20-5.40); Red Cell Distribution Width 13.5 % (11.5-17.5); White Blood Count 7.9 K/mm3 (4.8-10.8)
[2021-04-02 13:05] LABS: Alanine Aminotransferase 29 U/L (12-78); Albumin Level 4.8 g/dl (3.5-5.0); Albumin/Globulin Ratio 1.7 (1.1-1.8); Alkaline Phosphatase 115 U/L (38-126); Anion Gap 15.2 mEq/L (5-15); Aspartate Amino Transferase 31 U/L (14-36); Bilirubin,Total 0.7 mg/dl (0.2-1.3); Blood Urea Nitrogen 16 mg/dl (7-17); Calcium 10.6 mg/dl (8.4-10.2); Carbon Dioxide 27 mmol/L (22.0-30.0); Chloride 103 mmol/L (98-107); Chol/HDL Ratio 2.6 (1-3.5); Cholesterol 177 mg/dl (140-200); Estimated Glomerular Filt Rate 96 ml/min (>60); GFR (African American) 116 ML/MIN (>60); Globulin 2.9 g/dL (1.3-3.2); Glucose 95 mg/dl (74-100); HDL Cholesterol 69 mg/dl (40-60); Potassium 4.2 mmoL/L (3.5-5.1); Sodium 141 mmol/L (136-145); Total Protein,Serum 7.7 g/dl (6.3-8.2); Triglycerides 132 mg/dl (30-150); VLDL Cholesterol 26 mg/dL (0-40)
[2021-04-02 13:36] LABS: Thyroid Stimulating Hormone 1.32 uIU/mL (0.465-4.68)
[2021-04-02 13:55] LABS: Vitamin B12 949 pg/mL (239-931)
== END ==
PROVIDERS: Visit Provider Internal Medicine Adolescent Medicine
DX: Z00.00 Encounter for general adult medical examination without abnormal findings (principal); I10 Essential (primary) hypertension; R53.83 Other fatigue; E55.9 Vitamin D deficiency, unspecified
CPT/HCPCS: 36415; 80053; 80061; 82306; 82607; 84443; 85025

== ENCOUNTER 2021-05-17 20:09 | Emergency (ER) | payer MEDICARE, OTHER, SELFPAY ==
[2021-05-17 20:10] VITALS: BP 175/71; PULSE 82; RESP 18; TEMP 36.8; O2SAT 96; BMI 23.1
--- NOTE | 2021-05-17 20:37 | HMH.EDUTC ---
[facility] [place] Disposition Clinical Impression: Strep pharyngitis Disposition: Home, Self-Care Condition on Discharge: Good Instructions: DI for Strep Throat Prescriptions: Amoxicillin [Amoxicillin 400MG/5ML Oral Susp.] 10 ml PO BID 10 Days #200 susp.recon Transmission Status: Pending to [id number] Referrals: Provider,Referral, [Primary Care Provider] - Time of Disposition: 20:49 Medical Decision Making - Seth Inquiry Pt receiving controlled substance: No - Lab Data Lab results reviewed: Yes: I reviewed the patient's lab results. [facility] [place] HPI - General Stated complaint: sore throat Time Seen by Provider: 05/17/21 20:37 - History of Present Illness Provider Complaint: Sore throat X 2 days. No fever. Difficult to swallow. Onset (ago): day(s) (2) Location: mouth Relieving factors: none Exacerbating factors: none Associated symptoms: denies other symptoms Treatments prior to arrival: none - Related Data Home Medications Medication Instructions Recorded Confirmed atorvastatin 40 mg tablet 40 mg PO DAILY 30 Days #30 tab 09/16/18 12/19/20 tramadol 50 mg tablet 50 mg PO DAILYP PRN 5 Days #30 tab 09/16/18 12/19/20 Amlodipine Besylate [Amlodipine 5 mg PO DAILY 05/02/20 12/19/20 10mg Tab] Celecoxib [CeleBREX 100mg Capsule] 100 mg PO BID 05/02/20 12/19/20 Diclofenac Sodium [Diclofenac Sod 100 gm TP QID PRN 05/02/20 12/19/20 100gm Topical Gel] Escitalopram Oxalate [Lexapro] 5 mg PO DAILY 05/02/20 12/19/20 Omeprazole [Omeprazole 40mg 40 mg PO DAILY 06/03/20 12/19/20 Capsule] Metronidaz/Sod Chl [Flagyl 500 mg IV Q8H 07/15/20 12/19/20 500mg/100mL IVPB] Previous Rx's Medication Instructions Recorded Dicyclomine HCl [Bentyl 10mg 10 mg PO TID PRN 10 Days #30 cap 06/07/20 capsule] Amoxicillin [Amoxicillin 400MG/5ML 10 ml PO BID 10 Days #200 05/17/21 Oral Susp.] susp.recon Allergies Allergy/AdvReac Type Severity Reaction Status Date / Time diazepam [From Valium] Allergy Verified 12/19/20 10:39 [facility] History - Hepatitis A Screen Attestation statement:: This patient has been screened for Hepatitis A risk factors. I have reviewed the patient's past medical history: Yes Medical History: Reports:: Cancer (breast), Depression, Gastroesophageal Reflux Disease(GERD), Hyperlipidemia, Hypertension, Transient Ischemic Attacks (TIA) Denies:: Diabetes Mellitus Type 1, Diabetes Mellitus Type 2, Internal Pacemaker, MRSA, Seizures Other Medical History: Reports: Anemia, Arthritis. Denies: Blood Transfusion Reaction Comment: chronic back pain Laterality Cases: Left: Breast Biopsy, Mastectomy, Right: Other Other Surgeries: Yes: Cancer Surgery (mastectomy), Colonoscopy, Hysterectomy-Total. No: Pacemaker Amputation: No Fractures: Yes - Social History Smoking Status: Never smoker Alcohol Intake: never Alcohol Intake Frequency:: a few times a month Substance Use Type: denies use Occupational Status: retired Housing: house Household Members: family - Psychiatric History Pschychiatric History:: Reports:: Depression Family Hx:: Cancer ROS Obtained: Yes All systems reviewed & no additional complaints - ENT Ears, Nose, Mouth, and Throat: Reports sore throat Physical Exam - General General appearance: alert, in no apparent distress - Head Head exam: normocephalic - Eye Eye exam: Present: PERRL - ENT ENT exam: Present: TM's normal bilaterally - Expanded ENT Exam Throat exam: Present: tonsillar erythema, tonsillomegaly, tonsillar exudate - Neck Neck exam: Absent: lymphadenopathy - Chest Chest inspection: Present: normal inspection, symmetric chest wall rise - Respiratory Respiratory exam: Present: normal lung sounds bilaterally - Cardiovascular Cardiovascular exam: Present: regular rate, normal rhythm - Neurological Exam Neurological exam: Present: alert, oriented X3 - Psychiatric Psychiatric exam: Present: normal affect, normal mood - Skin Skin exam
[2021-05-17 20:40] VITALS: BMI 23.1
[2021-05-17 20:45] LABS: UTC Strep Screen (Rapid) Positive (Negative)
[2021-05-17 20:55] VITALS: BP 154/71; PULSE 75; RESP 14; TEMP 36.8; O2SAT 99
== END 2021-05-17 21:01 | disposition home or self-care (01) ==
PROVIDERS: Emergency Provider Physician Assistant
DX: J02.0 Streptococcal pharyngitis (principal); I10 Essential (primary) hypertension; F33.1 Major depressive disorder, recurrent, moderate; K21.9 Gastro-esophageal reflux disease without esophagitis; E78.5 Hyperlipidemia, unspecified
CPT/HCPCS: G0463; 87880; 99202; J0561

== ENCOUNTER → 2021-05-25 17:43 | Outpatient (CLI) | payer MEDICARE, OTHER, SELFPAY | PROVIDERS: Visit Provider Nurse Practitioner Family | DX: J02.9 Acute pharyngitis, unspecified (principal) | CPT/HCPCS: 87070 ==

== ENCOUNTER 2022-04-29 10:21 | Emergency (ER) | payer MEDICARE, OTHER, SELFPAY ==
[2022-04-29 10:45] VITALS: BP 185/65; PULSE 70; RESP 17; TEMP 37; O2SAT 96; BMI 23.3
--- NOTE | 2022-04-29 10:48 | HMH.EDUTC ---
[facility] [place] Clinical Impression: Bilateral impacted cerumen Disposition: Home, Self-Care Condition on Discharge: Good Instructions: DI for Cerumen Impaction, Cerumen Impaction Additional Instructions: Use the ear drops as directed. Follow up with your regular doctor. GO TO THE ER FOR ANY WORSENING SYMPTOMS Prescriptions: Neomycin/Polymyxin B Sulf/Hc [Naqnocsw-Firyujqwx-CW Otic Susp 10mL] 3 drops OT TID 7 Days #1 ml Transmission Status: Received by [id number] Referrals: Juan Danielson MD [Primary Care Provider] - Time of Disposition: 11:21 Medical Decision Making - Medical Records Medical records reviewed: No: I reviewed the patient's medical records. - Seth Inquiry Pt receiving controlled substance: No Vital Signs: 04/29/22 10:45 04/29/22 11:27 Temperature 98.6 F 98.6 F Temperature Source Oral Pulse Rate 70 Pulse Rate [Left] 70 Respiratory Rate 17 17 Blood Pressure 185/65 H Blood Pressure [Right Arm] 185/65 H Blood Pressure Mean [Right Arm] 105 02 Sat by Pulse Oximetry 96 [facility] [place] HPI - General Stated complaint: ear congestion Time Seen by Provider: 04/29/22 10:48 - History of Present Illness Provider Complaint: She states that for the past 5 days she has had decreased hearing in both her ears. - Related Data Home Medications Medication Instructions Recorded Confirmed atorvastatin 40 mg tablet 40 mg PO DAILY 30 Days #30 tab 09/16/18 12/19/20 tramadol 50 mg tablet 50 mg PO DAILYP PRN 5 Days #30 tab 09/16/18 12/19/20 Amlodipine Besylate [Amlodipine 5 mg PO DAILY 05/02/20 12/19/20 10mg Tab] Celecoxib [CeleBREX 100mg Capsule] 100 mg PO BID 05/02/20 12/19/20 Diclofenac Sodium [Diclofenac Sod 100 gm TP QID PRN 05/02/20 12/19/20 100gm Topical Gel] Escitalopram Oxalate [Lexapro] 5 mg PO DAILY 05/02/20 12/19/20 Omeprazole [Omeprazole 40mg 40 mg PO DAILY 06/03/20 12/19/20 Capsule] Metronidaz/Sod Chl [Flagyl 500 mg IV Q8H 07/15/20 12/19/20 500mg/100mL IVPB] Previous Rx's Medication Instructions Recorded Dicyclomine HCl [Bentyl 10mg 10 mg PO TID PRN 10 Days #30 cap 06/07/20 capsule] Amoxicillin [Amoxicillin 400MG/5ML 10 ml PO BID 10 Days #200 05/17/21 Oral Susp.] susp.recon Neomycin/Polymyxin B Sulf/Hc 3 drops OT TID 7 Days #1 ml 04/29/22 [Vpdnckvy-Cgjfpbnxy-SW Otic Susp 10mL] Allergies Allergy/AdvReac Type Severity Reaction Status Date / Time diazepam [From Valium] Allergy Verified 04/29/22 10:50 [facility] History - Hepatitis A Screen Attestation statement:: This patient has been screened for Hepatitis A risk factors. I have reviewed the patient's past medical history: Yes Medical History: Reports:: Cancer (breast), Depression, Gastroesophageal Reflux Disease(GERD), Hyperlipidemia, Hypertension, Transient Ischemic Attacks (TIA) Denies:: Diabetes Mellitus Type 1, Diabetes Mellitus Type 2, Internal Pacemaker, MRSA, Seizures Other Medical History: Reports: Anemia, Arthritis. Denies: Blood Transfusion Reaction Comment: chronic back pain Laterality Cases: Left: Breast Biopsy, Mastectomy, Right: Other Other Surgeries: Yes: Cancer Surgery (mastectomy), Colonoscopy, Hysterectomy-Total. No: Pacemaker Amputation: No Fractures: Yes - Social History Smoking Status: Never smoker Alcohol Intake: never Alcohol Intake Frequency:: a few times a month Substance Use Type: denies use Occupational Status: retired Housing: house Household Members: family - Psychiatric History Pschychiatric History:: Reports:: Depression Family Hx:: Cancer ROS Obtained: Yes All systems reviewed & no additional complaints - Constitutional Constitutional: Denies chills, Denies fever(s) - Eyes Eyes: Denies eye discharge - ENT Ears, Nose, Mouth, and Throat: Reports as per HPI - Cardiovascular Cardiovascular: Denies chest pain - Respiratory Respiratory: Denies chest congestion, Denies cough Physical Exam - General Genera
[2022-04-29 11:27] VITALS: BP 185/65; PULSE 70; RESP 17; TEMP 37
== END 2022-04-29 11:29 | disposition home or self-care (01) ==
PROVIDERS: Emergency Provider Nurse Practitioner Family; PCP Internal Medicine Adolescent Medicine
DX: H61.23 Impacted cerumen, bilateral (principal)
CPT/HCPCS: 99212; G0463

== ENCOUNTER → 2022-05-01 09:35 | Outpatient (CLI) | payer MEDICARE, OTHER, SELFPAY ==
[2022-05-01 10:08] LABS: Basophils # 0.1 K/mm3 (0-0.2); Basophils % 0.9 % (0.1-2.0); Eosinophils # 0.2 K/mm3 (0.0-0.4); Eosinophils % 3.5 % (0.1-12.0); Hematocrit 45.5 % (37.0-47.0); Lymphocytes % 34.9 % (10-50); Mean Corpuscular HGB Conc 32.9 g/dL (31.8-35.4); Mean Corpuscular Hemoglobin 30.8 pg (27.0-31.2); Mean Corpuscular Volume 93.5 fl (81-99); Mean Platelet Volume 9.4 fl (7.4-10.4); Monocytes # 0.6 K/mm3 (0.1-1.0); Neutrophils # 2.9 K/mm3 (1.8-7.8); Neutrophils % 50.8 % (37.0-80.0); Platelet Count 261 K/mm3 (142-424); Red Blood Count 4.87 M/mm3 (4.20-5.40); Red Cell Distribution Width 13.1 % (11.5-17.5); White Blood Count 5.7 K/mm3 (4.8-10.8)
[2022-05-01 11:18] LABS: Alanine Aminotransferase 86 U/L (12-78); Albumin Level 4.3 g/dl (3.5-5.0); Albumin/Globulin Ratio 1.5 (1.1-1.8); Alkaline Phosphatase 146 U/L (38-126); Anion Gap 11.3 mEq/L (5-15); Aspartate Amino Transferase 65 U/L (14-36); Bilirubin,Total 0.5 mg/dl (0.2-1.3); Blood Urea Nitrogen 17 mg/dl (7-17); Calcium 10.5 mg/dl (8.4-10.2); Carbon Dioxide 29 mmol/L (22.0-30.0); Chloride 105 mmol/L (98-107); Estimated Glomerular Filt Rate 95 ml/min (>60); GFR (African American) 116 ML/MIN (>60); Globulin 2.8 g/dL (1.3-3.2); Glucose 105 mg/dl (74-100); Potassium 4.3 mmoL/L (3.5-5.1); Sodium 141 mmol/L (136-145); Total Protein,Serum 7.1 g/dl (6.3-8.2)
== END ==
PROVIDERS: PCP Internal Medicine Adolescent Medicine; Visit Provider Internal Medicine Adolescent Medicine
DX: I10 Essential (primary) hypertension (principal); R60.0 Localized edema
CPT/HCPCS: 36415; 80053; 85025

== ENCOUNTER → 2022-07-03 09:57 | Outpatient (CLI) | payer MEDICARE, OTHER, SELFPAY ==
--- NOTE | 2022-07-03 | XR_ITS ---
PROCEDURE INFORMATION: Exam: XR Lumbosacral Spine Exam date and time: 07/03/2022 10:28 AM Age: 81 years old Clinical indication: Low back pain TECHNIQUE: Imaging protocol: Radiologic exam of the lumbosacral spine. Views: 2 or 3 views. COMPARISON: CT ABDOMEN PELVIS W CON 06/02/2020 8:24 PM FINDINGS: Bones/joints: Dextroscoliosis of the lumbar spine. Multilevel severe disc space narrowing. No compression fracture identified. Multilevel facet arthropathy. Soft tissues: Unremarkable. IMPRESSION: 1. Dextroscoliosis of the lumbar spine. 2. Multilevel severe disc space narrowing.
[2022-07-03 10:31] LABS: Basophils # 0.1 K/mm3 (0-0.2); Basophils % 1.2 % (0.1-2.0); Eosinophils # 0.2 K/mm3 (0.0-0.4); Eosinophils % 2.8 % (0.1-12.0); Hematocrit 44.5 % (37.0-47.0); Hemoglobin 14.4 g/dL (12.2-16.2); Lymphocytes # 2.1 K/mm3 (0.7-4.5); Lymphocytes % 35.5 % (10-50); Mean Corpuscular HGB Conc 32.4 g/dL (31.8-35.4); Mean Corpuscular Volume 95.8 fl (81-99); Mean Platelet Volume 9.4 fl (7.4-10.4); Monocytes # 0.6 K/mm3 (0.1-1.0); Neutrophils % 50.4 % (37.0-80.0); Platelet Count 264 K/mm3 (142-424); Red Blood Count 4.65 M/mm3 (4.20-5.40); Red Cell Distribution Width 14.4 % (11.5-17.5); White Blood Count 5.9 K/mm3 (4.8-10.8)
[2022-07-03 10:55] LABS: Alanine Aminotransferase 156 U/L (12-78); Albumin Level 4.2 g/dl (3.5-5.0); Albumin/Globulin Ratio 1.6 (1.1-1.8); Alkaline Phosphatase 161 U/L (38-126); Anion Gap 8.9 mEq/L (5-15); Aspartate Amino Transferase 95 U/L (14-36); Bilirubin,Total 0.5 mg/dl (0.2-1.3); Blood Urea Nitrogen 19 mg/dl (7-17); Calcium 9.9 mg/dl (8.4-10.2); Carbon Dioxide 31 mmol/L (22.0-30.0); Chloride 105 mmol/L (98-107); Estimated Glomerular Filt Rate 80 ml/min (>60); GFR (African American) 97 ML/MIN (>60); Globulin 2.7 g/dL (1.3-3.2); Glucose 104 mg/dl (74-100); Magnesium 1.8 mg/dl (1.6-2.3); Potassium 3.9 mmoL/L (3.5-5.1); Sodium 141 mmol/L (136-145); Total Protein,Serum 6.9 g/dl (6.3-8.2)
[2022-07-03 11:12] LABS: 25-OH Vitamin D, Total 35.6 ng/mL (30-100)
[2022-07-03 11:26] LABS: Thyroid Stimulating Hormone 1.22 uIU/mL (0.465-4.68)
[2022-07-03 12:18] LABS: Vitamin B12 731 pg/mL (239-931)
== END ==
PROVIDERS: PCP Internal Medicine Adolescent Medicine; Visit Provider Internal Medicine Adolescent Medicine
DX: I10 Essential (primary) hypertension (principal); I77.6 Arteritis, unspecified; F41.1 Generalized anxiety disorder; M54.50 Low back pain, unspecified
CPT/HCPCS: 36415; 72100; 80053; 82306; 82607; 83735; 84443; 85025

== ENCOUNTER → 2022-07-15 10:08 | Outpatient (POV) | payer MEDICARE, OTHER, SELFPAY ==
[2022-07-15 10:58] VITALS: BP 192/96; PULSE 71; RESP 18; TEMP 36.5; O2SAT 94; BMI 25.4
--- NOTE | 2022-07-15 12:22 | EXP.PAIN.OV ---
HPI Data of Consult Patient: known to practice within the last 3 years Consult date: 07/15/22 Requesting Physician: Janet Rowell APRN Primary Care Provider: Juan Danielson MD Consult Narrative Reason for consult: Low back pain, bilateral lower extremity pain History of present illness: Ms. Chung is a 81 year old female who presents today as a new patient. She is a referral from Dr. Juan Richey's office. Patient was previously a patient to our office about 2 years ago. Today the patient rates her pain an 8 out of 10. She states the pain is all primarily in her low back that radiates into her bilateral extremities however the right side is worse than the left. Patient denies any new trauma or injury to the site. She states this is the same pain that we previously treated the patient for a couple of years ago. Patient states this is a aching, shooting pain sensation that is worse with increased activity and worse in the mornings as well as evenings. Patient is currently taking Tylenol along with muscle relaxer tizanidine and Celebrex daily to help with her pain symptoms. Patient denies any side effects from any of these medications and states it does help relieve some of her symptoms. Patient has saw physical therapy about 5 years ago and stated it provided some improvement of her symptoms. She is also seen a chiropractor years ago and had acupuncture that helped. Patient has tried ice however this makes her pain worse. Patient states heat does help however does not provide long-term relief. Patient does not have any history of back surgery. Patient is not on any scheduled medications. Her Seth is [phone]. Its been reviewed and appropriate. CC: Janet Rowell APRN [facility] Medical History (Updated 07/15/22 @ 12:32 by Janet Rowell APRN) Arthritis Cancer Chronic pain HLD (hyperlipidemia) HTN (hypertension) Sacroiliitis TIA (transient ischemic attack) Surgical History (Updated 07/15/22 @ 11:09 by Charmaine Barillas RN) H/O left mastectomy H/O total hysterectomy History of ankle surgery History of cancer surgery Social History Smoking Status: Never smoker second hand exposure: No alcohol intake: never substance use type: denies use current occupational status: retired Travel in the last 8 weeks: None household members: family housing: house current occupational exposures/hazards: No caffeine: Yes Review of Systems Review of Systems Review of systems:: pertinent systems reviewed and negative unless documented below Review of systems (narrative): Review of Systems: General: No recent weight changes, no fever, no sleep disturbances Respiratory: No cough, no shortness of air, no recurring pulmonary infections Cardiovascular/peripheral vascular: No chest pain, no palpitations, no edema, no shortness of breath Gastrointestinal: No new onset incontinence, normal bowel movements reported Genitourinary: No new onset incontinence Musculoskeletal: Low back pain, bilateral lower extremity pain Psychiatric: [Normal mood/affect] Neurological: [Denies weakness in extremities], [denies balance issues] Meds Home Medications and Allergies Home Medications Medication Instructions Recorded Confirmed Type atorvastatin 40 mg tablet 40 mg PO DAILY Cholesterol 30 days 09/16/18 07/15/22 History #30 tabs tramadol 50 mg tablet 50 mg PO DAILYP PRN PAIN 5 days 09/16/18 07/15/22 History #30 tabs amlodipine 10 mg tablet 5 mg PO DAILY Hypertension 05/02/20 07/15/22 History celecoxib 100 mg capsule 100 mg PO BID Arthritis 05/02/20 07/15/22 History diclofenac sodium 3 % topical gel 100 gm TP QID PRN MUSCLE SPASMS 05/02/20 07/15/22 History escitalopram oxalate 5 mg tablet 5 mg PO DAILY Depression 05/02/20 07/15/22 History omeprazole 40 mg capsule,delayed 40 mg PO DAILY GERD 06/03/20 07/15/22 History release dicyclomine 10 mg capsule 10 mg PO TID PRN Moderate Pain 10 06/07/20 07/15/22 Rx days #30
== END ==
PROVIDERS: PCP Internal Medicine Adolescent Medicine; Visit Provider Nurse Practitioner Family
DX: M51.16 Intervertebral disc disorders with radiculopathy, lumbar region (principal); M79.605 Pain in left leg; M79.604 Pain in right leg; M47.20 Other spondylosis with radiculopathy, site unspecified
CPT/HCPCS: 99202; G0463

== ENCOUNTER 2022-07-20 08:28 | Day surgery (SDC) | payer MEDICARE, BC, SELFPAY ==
[2022-07-20 08:48] VITALS: BP 177/87; PULSE 78; RESP 18; TEMP 36.7; O2SAT 95; BMI 26.2
[2022-07-20 09:13] VITALS: BP 165/78; PULSE 79; RESP 18; O2SAT 98
[2022-07-20 09:14] VITALS: RESP 18
[2022-07-20 09:40] VITALS: BP 158/70; PULSE 70; RESP 18; O2SAT 94
--- NOTE | 2022-07-20 09:49 | EXP.PAIN.PRO ---
Procedure Date: 07/20/22 Time: 09:49 Anesthesiologist:: Dain Kruger CRNA Complications:: None Pre-procedure Diagnosis:: Degenerative disc disease lumbar spine multilevels. Lumbar radiculopathy. Post-procedure Diagnosis:: Same Indications for Procedure:: Very pleasant 81-year-old female that comes our clinic today for lumbar epidural steroid injection. She has low back pain that she describes as constant, dull, aching. She rates the pain 8/10. She also complains of bilateral hip and leg radicular symptoms Procedure Details:: Procedure: Lumbar epidural steroid injection under fluoroscopy Informed consent was obtained and the risks and benefits of the procedure were explained to the patient. The patient was taken to the procedure room and noninvasive monitors placed, including noninvasive blood pressure cuff and pulse oximeter. The back was viewed using C-arm Fluoroscopy and prepped using Betadine as a cleansing solution and the L4-L5 interspace was palpated. Skin and subcutaneous tissues were anesthetized using lidocaine 1.5% and a 25-gauge needle. After this, an 18-gauge Touhy epidural needle was placed into the L4-L5 interspace and advanced using fluoroscopic guidance and loss of resistance to air until the epidural space was encountered. After confirmation of needle placement in the epidural space, with dye, a solution containing lidocaine 1.5%, 4 mL and Depo-Medrol 80 mg were incrementally injected into the lumbar epidural space. The patient tolerated the procedure well with no complications. The patient was observed in the Pain Clinic and then discharged home neurologically intact. Plan and Disposition:: Patient was discharged without incident.
== END 2022-07-20 09:40 | disposition home or self-care (01) ==
PROVIDERS: PCP Internal Medicine Adolescent Medicine; Visit Provider Nurse Anesthetist, Certified Registered
DX: M51.16 Intervertebral disc disorders with radiculopathy, lumbar region (principal)
CPT/HCPCS: 62323; J1040

== ENCOUNTER → 2022-09-09 10:58 | Outpatient (POV) | payer MEDICARE, BC, SELFPAY ==
--- NOTE | 2022-09-09 11:27 | EXP.PAIN.SOA ---
[facility] Pain Management SOAP Note Subjective:: Patient is a pleasant 82-year-old female who presents today for follow-up of lumbar epidural steroid injection of L4-L5 on 07/20/2022. We are currently treating the patient for degenerative disc disease of lumbar spine with lumbar radiculopathy symptoms, sacroiliitis. Today she states that she did get improvement with this injection however she states that she did not notice significant relief with long-lasting results. Today she rates her pain 7 out of 10. She states the pain is all in her low back that radiates down her extremities. Patient denies any new trauma or injury. Patient denies any change to location or type of pain she is experiencing. Patient does state this is an aching, throbbing sensation that is worse with increased activity. Patient does use [id number] Tylenol along with tizanidine to provide some relief of her symptoms. Patient was previously prescribed Celebrex daily however she was having some GI related issues and stopped taking this medication to see if it was the cause. Patient states that she continues to have some problems and would like to start back on this medication. Patient states that she is planning to contact her primary care doctor to get her back on this. Patient has had injections in the past that provided significant relief including SI injections. Patient states she has seen physical therapy in the past that provided some improvement. She states she has also had a chiropractor who performed acupuncture that helps. Patient does continue to use ice for minimal improvement. Patient is not on any scheduled medications. Her Seth is [phone]. It has been reviewed and appropriate. Review of Systems: General: No recent weight changes, no fever, no sleep disturbances Respiratory: No cough, no shortness of air, no recurring pulmonary infections Cardiovascular/peripheral vascular: No chest pain, no palpitations, no edema, no shortness of breath Gastrointestinal: No new onset incontinence, normal bowel movements reported Genitourinary: No new onset incontinence Musculoskeletal: Low back pain, leg pain Psychiatric: [Normal mood/affect] Neurological: [Denies weakness in extremities], [denies balance issues] Objective:: Physical Exam: General: Alert and oriented x3, no acute distress, pleasant and cooperative Lungs: Respirations even and unlabored, symmetrical chest expansion Eyes: PERRL Musculoskeletal: Flexion and extension of lumbar [spine] somewhat guarded secondary to pain, [antalgic gait noted] extreme point tenderness along bilateral SI's and positive bilateral Berna's, Destiny's, Gaenslen's, compression and distraction exam Neurological: Speech clear, no gross sensory deficit Assessment:: Degenerative disc disease of lumbar spine with lumbar radiculopathy symptoms, sacroiliitis Plan:: Patient is experiencing significant pain in her low back that radiates into her bilateral lower extremities. Patient have limited range of motion of her lumbar spine and extreme point tenderness along her bilateral SI's with positive bilateral Berna's, Destiny's, Gaenslen's, compression and distraction exam during today's visit. I have recommended that the patient may benefit from bilateral SI injections. Risk and benefits were discussed with the patient. She would like to proceed forward with this plan of care. We will schedule her for bilateral SI injections. Patient has been instructed to contact the clinic with any concerns before the next appointment. Dr. Klein has reviewed this note and agrees with this plan of care. This note was dictated using voice recognition software and make contain errors or omissions. [facility] Medical History Arthritis Cancer Chronic pain HLD (hyperlipidemia) HTN (hypertension) Sacroiliitis TIA (transient ischemic attack) Surgical History (Reviewed 07/20/22 @ 08:49 by Yadira Muñoz
[2022-09-09 11:53] VITALS: BP 182/83; PULSE 84; RESP 18; O2SAT 94; BMI 24.2
== END ==
PROVIDERS: PCP Internal Medicine Adolescent Medicine; Visit Provider Nurse Practitioner Family
DX: M51.16 Intervertebral disc disorders with radiculopathy, lumbar region (principal); M46.1 Sacroiliitis, not elsewhere classified
CPT/HCPCS: 99212; G0463

== ENCOUNTER 2022-09-21 10:29 | Day surgery (SDC) | payer MEDICARE, BC, SELFPAY ==
[2022-09-21 10:41] VITALS: BP 188/80; PULSE 84; RESP 18; TEMP 36.4; O2SAT 96; BMI 26.6
[2022-09-21 10:59] VITALS: BP 190/92; PULSE 83; PULSE 84; RESP 18; O2SAT 98
[2022-09-21 11:10] VITALS: BP 179/85; PULSE 77; RESP 20
--- NOTE | 2022-09-21 11:41 | P.PCN_ITS ---
Procedure Date: 09/21/22 Time: 11:20 Anesthesiologist:: Dain Kruger CRNA Complications:: None Pre-procedure Diagnosis:: Bilateral sacroiliitis Post-procedure Diagnosis:: Same. Indications for Procedure:: Patient is a pleasant 82-year-old female comes today for bilateral sacroiliac joint injections. Patient had lumbar epidural steroid injection in the past with minimal relief. She complains of posterior hip pain. Some bilateral leg radicular symptoms at times. She rates her pain 7/10 Procedure Details:: Procedure: Bilateral sacroiliac joint injections under fluoroscopy Informed consent was obtained and the risks and benefits of the procedure were explained to the patient.~ The patient was taken to the procedure room and noninvasive monitors were placed including a noninvasive blood pressure cuff and pulse oximeter.~ The patient was placed prone on the procedure table. Both hips were cleansed using Betadine as a cleansing solution. C-arm fluoroscopy was used to view the right sacroiliac joint.~ The skin and subcutaneous tissues were anesthetized using lidocaine 1.5% and a 25-gauge needle.~ After this, a 22-gauge spinal needle was inserted under fluoroscopic guidance into the inferior aspect of the right sacroiliac joint.~ Omnipaque dye was injected and good spread was seen throughout the joint.~ After this, approximately 5 mL of bupivacaine, 0.25% and Depo-Medrol, 40 mg was incrementally injected into the right sacroiliac joint. We then moved to the left sacroiliac joint.~ The skin and subcutaneous tissues were anesthetized using lidocaine 1.5% and a 25-gauge needle.~ After this, a 22- gauge spinal needle was inserted under fluoroscopic guidance into the inferior aspect of the left sacroiliac joint.~ Omnipaque dye was injected and good spread was seen throughout the joint. After this, approximately 5 mL of bupivacaine, 0.25% and Depo-Medrol, 40 mg was incrementally injected into the left sacroiliac joint.~ The patient tolerated the procedure well with no complications. The patient was observed in the Pain Clinic and then was discharged home neurologically intact. Plan and Disposition:: Patient was discharged without incident.
== END 2022-09-21 11:11 | disposition home or self-care (01) ==
LOC: SC.PAINP 10:30
PROVIDERS: PCP Internal Medicine Adolescent Medicine; Visit Provider Nurse Anesthetist, Certified Registered
DX: M46.1 Sacroiliitis, not elsewhere classified (principal)
CPT/HCPCS: 27096; G0260; J1030

== ENCOUNTER → 2023-03-01 13:07 | Outpatient (CLI) | payer MEDICARE, BC, SELFPAY ==
--- NOTE | 2023-03-01 13:12 | XR_ITS ---
FINAL REPORT CLINICAL HISTORY: LYMPHEDEMA OF LT LEG,CELLULITIS OF LT LOWER LEG FINDINGS: Two views of the left tibia-fibula demonstrate no acute fracture or dislocation. The joint spaces appear normal. The visualized bony structures are well aligned. No soft tissue abnormality is seen. IMPRESSION: No acute process. Reviewed, Interpreted and Dictated by Marie Rahman MD Transcribed by Kadeem Orozco Authenticated and . [facility]
== END ==
PROVIDERS: PCP Internal Medicine Adolescent Medicine; Visit Provider Internal Medicine Adolescent Medicine
DX: I89.0 Lymphedema, not elsewhere classified (principal)
CPT/HCPCS: 73590

== ENCOUNTER 2023-03-25 09:00 | Outpatient (RCR) | payer MEDICARE, BC, SELFPAY ==
--- NOTE | 2023-03-10 14:33 | HMH.PTOPWND ---
Rehab Outpt Wound Evaluation Rehab OP Wound Evaluation Start: 03/10/23 12:50 Freq: Status: Active Protocol: Document 03/10/23 14:17 PHOTJ (Rec: 03/10/23 14:31 PHORNE [id number]) E-signed By Robles Adhikari, PT Subjective/History History History This is the initial PT eval for Lamar Chung 82 yowf who presents with c/o L LE edema x ~ 1-2 mos after a bout of cellulitis. She reports she had a small cut on her L hough and she does not know what caused it. This resulted in increased swelling and pain and she was treated with abx, which seemed to help. However, the edema has remaind persistent. She reports no pain at rest, butsome tenderness to palpation. She has decreased ambulation ability due to the edema and associated discomfort. She has PMH of HTN, diverticulitis, Breast CA with L mastectomy, RANJAN/BSO. Subjective Subjective She reports no pain at current , but at worst it is 5/10 in the L LE. 2/4 TTP noted to L LE in gaiter area. 2+ pitting edema to the L ankle. Mild non -blanchable erythema to B lower legs. Lymphedema Eval Classification of Lymphedema Secondary Lymphedema Yes: CVI and cellulitis Stemmer's sign Stemmer's Sign yes Stage of Lymphedema Lymphedema stages Stage I (Pitting edema, reduces w/ elevation, no fibrosis) Skin Changes Dry Skin Yes Redness Yes Wounds Yes Discoloration of Skin Yes Other Changes Yes Pain Scale Pain Scale (0-10) 5 Radiation Therapy Has received radiation therapy no Chemo Therapy Has received chemo therapy yes Affected Extremities Areas Affected by Lymphedema/Edema Left Lower Extremity Manual Lymphatic Drainage Treatment Area MLD Treatment Area Left Lower Extremity Wound Problems/Impairments Impairments Problems/Impairmments Palpation Tenderness,Impaired Endurance,Impaired Transfers,
== END 2023-03-25 09:05 | disposition home or self-care (01) ==
LOC: PT 09:00
PROVIDERS: PCP Internal Medicine Adolescent Medicine; Visit Provider Internal Medicine Adolescent Medicine
DX: I89.0 Lymphedema, not elsewhere classified (principal)
CPT/HCPCS: 97140; 97162

== ENCOUNTER → 2023-05-11 11:01 | Outpatient (CLI) | payer MEDICARE, BC, SELFPAY ==
--- NOTE | 2023-05-11 11:06 | FL_ITS ---
FINAL REPORT CLINICAL HISTORY: dysphagia, ft 1:55 FINDINGS: MODIFIED BARIUM SWALLOW HISTORY: Dysphagia. FINDINGS: Fluoroscopy was provided for the speech pathologist to evaluate the swallowing mechanism. The patient was given several different consistencies of barium while the swallow was visualized fluoroscopically. The report of the speech pathologist should be consulted prior to making dietary decisions. IMPRESSION: Modified barium swallow under fluoroscopic guidance. Please see speech pathologist's report for further details and dietary recommendations. Fluoroscopy time was 1 minutes, 55 seconds A total of 9 cine runs were saved. Reviewed, Interpreted and Dictated by Marie Rahman MD Transcribed by Kylee Islas PA-C Authenticated and [facility]
--- NOTE | 2023-05-11 11:45 | HMH.SLMBS2 ---
Speech & Language Evaluation Speech/Language Mod Barium Swallow Start: 05/11/23 11:37 Freq: once Status: Complete Protocol: Document 05/11/23 11:37 JOHNRAYO (Rec: 05/11/23 11:45 JAELYN [id number]) General Information General Current Food Consistency Regular,Thin Liquids Dentition Good Dentition Oxygen Status Room Air Facial Symmetry Symmetrical Patient Orientation Person,Place,Time,Situation Ability to Follow Directions Excellent Communication Ability No Impairment MBS Recommendations Diet Dietary Recommendations Regular,Thin Liquids Treatment/Strategies Strategy/Precaution Recommend Sitting Upright (90 deg),Small Bites and Sips,Alternate Liquids/Solids Referrals/Other Recommended Referrals GI Consult Mod Barium Swallow Impressions Summary and Impressions Oral Phase Impression No Impairment (WFL) Oral Phase Summary Functional oral phase. Adequate mastication noted with all solid trials. AP transit was timely. No stasis in the oral cavity was present following completion of the pharyngeal swallow. No premature spillage noted on the study. Pharyngeal Phase Impression No Impairment (WFL) Pharyngeal Phase Summary Functional pharyngeal swallow. No aspiration or penetration was noted with any consistency trialed. Adequate pharyngeal squeeze and BOT retraction. Mildly decreased hyolaryngeal movement, but there is still adequate epiglottic inversion and bolus flow through the UES. No significant pharyngeal reside is present after the swallow. Somewhat prominent cervical spine is mildly impeding bolus flow, however, pt is able to independently clear entire bolus. Speech/Language MBS Assessment/Goals/Plan Assessment Date of Evaluation: 05/11/23 Evaluation Type Initial Certification Assessment/Problems Dysphagia per MD order. Does Patient Qualify for Service No Qualify/Failure Comment Based on the results of the MBSS, no further skilled ST services are warranted at this
== END ==
PROVIDERS: PCP Internal Medicine Adolescent Medicine; Visit Provider Internal Medicine Adolescent Medicine
DX: R13.13 Dysphagia, pharyngeal phase (principal)
CPT/HCPCS: 70371; 92611

== ENCOUNTER → 2023-10-14 10:14 | Outpatient (CLI) | payer MEDICARE, BC, SELFPAY ==
--- NOTE | 2023-10-14 10:22 | XR_ITS ---
FINAL REPORT CLINICAL HISTORY: hip pain FINDINGS: Right hip Two views were obtained. There is no acute fracture or dislocation. There is mild to moderate joint space narrowing. No soft tissue abnormality is identified. IMPRESSION: [id number] degenerative changes. Reviewed, Interpreted and Dictated by Guillermo Sotelo MD Transcribed by Anita Lazo Authenticated and [facility][1]
--- NOTE | 2023-10-14 10:22 | XR_ITS ---
FINAL REPORT CLINICAL HISTORY: LOW BACK PAIN,HIP PAIN FINDINGS: Left hip Three views were obtained. There is no acute fracture or dislocation. There is [id number] joint space narrowing bilaterally. No soft tissue abnormality is identified. IMPRESSION: Mild to moderate degenerative changes. Reviewed, Interpreted and Dictated by Guillermo Sotelo MD Transcribed by Anita Lazo Authenticated and . [facility]
--- NOTE | 2023-10-14 10:22 | XR_ITS ---
FINAL REPORT CLINICAL HISTORY: low back pain FINDINGS: LUMBAR SPINE Five views demonstrate no acute fracture. There is 30 degrees lumbar scoliosis convex to the right. There is advanced disc space narrowing from L2-3 through L5-S1. Dense facet sclerosis is seen in the lower lumbar spine. There is no malalignment. IMPRESSION: Advanced degenerative changes as above. Reviewed, Interpreted and Dictated by Guillermo Sotelo MD Transcribed by Anita Lazo Authenticated and [facility]
== END ==
PROVIDERS: PCP Internal Medicine Adolescent Medicine; Visit Provider Internal Medicine Adolescent Medicine
DX: M54.42 Lumbago with sciatica, left side (principal); M25.552 Pain in left hip
CPT/HCPCS: 72110; 73502

== ENCOUNTER → 2023-11-02 10:05 | Outpatient (POV) | payer MEDICARE, BC, SELFPAY ==
--- NOTE | 2023-11-02 10:08 | A.OFFVIS_ITS ---
HPI Data of Consult Patient: known to practice within the last 3 years Consult date: 11/02/23 Requesting Physician: Janet Rowell APRN Primary Care Provider: Juan Danielson MD Consult Narrative Reason for consult: Low back pain/buttocks pain sacroiliitis History of present illness: Ms. Chung is a 83 year old female who presents today as a new patient. She was a previous patient of ours with her last visit around August 2022. We were seeing the patient for degenerative disc disease of lumbar spine with lumbar radiculopathy symptoms, chronic sacroiliitis. Today she rates her pain a 10 out of 10. Patient states she has pain in and around her low back and into her buttocks area and towards her hips. Patient states that it is similar pain to what she experienced when she was a previous patient at our office. Patient's daughter is present today for her visit. She states that she did have a fall approximately 6 weeks ago however it was a soft fall and did not have any fractures to their knowledge. Patient does describe the pain as an aching, throbbing sensation with some numbness. Patient does state the pain interferes with her ability perform activities of daily living such as cooking to occluded or even simple ambulation. Patient is prescribed celecoxib 100 mg twice daily and tizanidine 2 mg daily as needed. Patient states this can help some. Patient is also using some topical with occasional improvement. Patient is not on any scheduled medications. Her Seth has been reviewed and is appropriate. CC: Janet Rowell APRN [facility] Disclaimer: The information contained in this section may have been updated after the patient was seen, as this information can be updated by other users. Medical History Arthritis Cancer Chronic pain HLD (hyperlipidemia) HTN (hypertension) Sacroiliitis TIA (transient ischemic attack) Surgical History H/O left mastectomy H/O total hysterectomy History of ankle surgery History of cancer surgery Family History Other No significant family history Social History (Updated 11/02/23 @ 10:14 by Charmaine Barillas RN) Smoking Status: Never smoker second hand exposure: No alcohol intake: never substance use type: denies use current occupational status: retired Travel in the last 8 weeks: None household members: family housing: house current occupational exposures/hazards: No caffeine: Yes Review of Systems Review of Systems Review of systems:: pertinent systems reviewed and negative unless documented below Review of systems (narrative): Review of Systems: General: No recent weight changes, no fever, no sleep disturbances Respiratory: No cough, no shortness of air, no recurring pulmonary infections Cardiovascular/peripheral vascular: No chest pain, no palpitations, no edema, no shortness of breath Gastrointestinal: No new onset incontinence, normal bowel movements reported Genitourinary: No new onset incontinence Musculoskeletal: Low back, buttocks pain, hip pain Psychiatric: [Normal mood/affect] Neurological: [Denies weakness in extremities], [denies balance issues] Meds Home Medications and Allergies Home Medications Medication Instructions Recorded Confirmed Type atorvastatin 40 mg tablet 40 mg PO DAILY Cholesterol 30 days 09/16/18 09/21/22 History #30 tabs amlodipine 10 mg tablet 5 mg PO DAILY Hypertension 05/02/20 09/21/22 History celecoxib 100 mg capsule 100 mg PO BID Arthritis 05/02/20 09/21/22 History omeprazole 40 mg capsule,delayed 40 mg PO DAILY GERD 06/03/20 09/21/22 History release dicyclomine 10 mg capsule 10 mg PO TID PRN Moderate Pain 10 06/07/20 09/21/22 Rx days #30 caps aspirin 81 mg capsule 81 mg PO DAILY heart health 07/20/22 09/21/22 History escitalopram oxalate 20 mg tablet 20 mg PO DAILY Depression 07/20/22 09/21/22 History (Lexapro) lisinopril 10 10 - 12.5 tab PO DAILY blood 07/20/22 09/21/22 History mg-hydrochlorothiazide 12.5 mg pressure tablet tizanidine 2 mg tablet 2 mg PO DAILYP PRN Pain 07/20/22 09/21/22 History New Prescriptions to Start Prescriptions: Allergies Allergy/AdvReac Type Severity Reaction Status Date / Time diazepam [From Valium] Allergy Verified 09/21/22 10:42 Objective Narrative: Physical Exam: General: Alert and oriented x3, no acute distress, pleasant and cooperative Lungs: Respirations even and unlabored, symmetrical chest expansion Eyes: PERRL Musculoskeletal: Flexion and extension of lumbar [spine] somewhat guarded secondary to pain, [antalgic gait noted] extreme point tenderness along left SI and point tenderness along right as well as point tenderness into her sacrum Neurological: Speech clear, no gross sensory deficit Additional findings Additional findings: INAL REPORT CLINICAL HISTORY: low back pain FINDINGS: LUMBAR SPINE Five views demonstrate no acute fracture. There is 30 degrees lumbar scoliosis convex to the right. There is advanced disc space narrowing from L2-3 through L5-S1. Dense facet sclerosis is seen in the lower lumbar spine. There is no malalignment. IMPRESSION: Advanced degenerative changes as above. Reviewed, Interpreted and Dictated by Guillermo Sotelo MD Transcribed by Anita Lazo Authenticated and [facility] Assessment and Plan *Assessment and plan (1) Low back pain: Status: Chronic Qualifiers: Back pain laterality: bilateral Chronicity: chronic Sciatica presence: unspecified whether sciatica present Qualified Code(s): M54.50 - Low back pain, unspecified; G89.29 - Other chronic pain Category: Medical Code(s): M54.5 - Low back pain (2) Degenerative disc disease, lumbar: Status: Acute Category: Medical Code(s): M51.36 - Other intervertebral disc degeneration, lumbar region (3) Facet arthropathy: Status: Acute Category: Medical Code(s): M47.819 - Spondylosis without myelopathy or radiculopathy, site unspecified Plan Patient is experiencing worsening pain in and around her low back and buttocks as well as her bilateral hips. Patient had limited range of motion of her lumbar spine along with extreme point tenderness at her left SI and a positive right SI tenderness and point tenderness at her sacrum during today's exam. I have discussed with the patient that she may benefit from bilateral SI injections as well as caudal epidural. Patient does state that her pain in and around her buttocks area is worse than around her hips and would like to focus on this area first. Risk and benefits of the caudal epidural were explained to the patient and her daughter and they would like to proceed forward with this plan of care. Patient is not on any blood thinners. Patient has tried and failed conservative therapy such as oral medication, heat and ice, topicals, previous physical therapy and chiropractor therapy. Patient will be scheduled for a caudal epidural steroid injection. This injection will be done under fluoroscopic guidance to confirm placement and accuracy. Patient has been instructed to contact the clinic with any concerns before the next appointment. Dr. Klein has reviewed this note and agrees with this plan of care. This note was dictated using voice recognition software and make contain errors or omissions.
[2023-11-02 10:45] VITALS: BP 177/86; PULSE 83; RESP 18; O2SAT 95; BMI 24.2
== END ==
LOC: SC.PAIN 10:06
PROVIDERS: PCP Internal Medicine Adolescent Medicine; Visit Provider Nurse Practitioner Family
DX: M54.50 Low back pain, unspecified (principal); G89.29 Other chronic pain; M51.36 Other intervertebral disc degeneration, lumbar region; M47.816 Spondylosis without myelopathy or radiculopathy, lumbar region; M46.1 Sacroiliitis, not elsewhere classified
CPT/HCPCS: 99202; G0463

== ENCOUNTER 2023-11-15 08:27 | Day surgery (SDC) | payer MEDICARE, BC, SELFPAY ==
[2023-11-15 08:44] VITALS: BP 198/75; PULSE 87; RESP 16; TEMP 36.3; O2SAT 95; BMI 25.0
[2023-11-15] MEDS: methylPREDNISolone ACETATE 80MG/ML VIAL 80 MG (08:56)
[2023-11-15 08:57] VITALS: BP 144/92; PULSE 86; RESP 18; O2SAT 96
[2023-11-15 08:58] VITALS: BP 144/92; PULSE 86; RESP 18; O2SAT 96
[2023-11-15 09:00] VITALS: BP 210/98; PULSE 78; RESP 18; O2SAT 95
--- NOTE | 2023-11-15 09:11 | EXP.PAIN.PRO ---
Procedure Date: 11/15/23 Time: 09:00 Anesthesiologist:: Dain Kruger CRNA Complications:: None Pre-procedure Diagnosis:: Degenerative disc lumbar spine multilevels. Lumbar radiculopathy. Lumbar spondylosis. Multilevel lumbar facet arthropathy. Post-procedure Diagnosis:: Same. Indications for Procedure:: Patient is a very pleasant 83-year-old female that comes our clinic today for a lumbar epidural steroid injection at the L5-S1 level. Patient describes low back pain as constant, dull, aching, sharp, stabbing. She also reports bilateral hip and leg radicular symptoms at times. However, radicular symptoms are not below the knee. We discussed in detail her chief complaint. Patient points to the L5-S1 level at the midline with some radiation into bilateral hips. She rates her pain today 6/10. Procedure Details:: Procedure: Lumbar epidural steroid injection under fluoroscopy Informed consent was obtained and the risks and benefits of the procedure were explained to the patient. The patient was taken to the procedure room and noninvasive monitors placed, including noninvasive blood pressure cuff and pulse oximeter. The back was viewed using C-arm Fluoroscopy and prepped using Chloraprep as a cleansing solution and the L5-S1 interspace was palpated. Skin and subcutaneous tissues were anesthetized using lidocaine 1.5% and a 25-gauge needle. After this, an 18-gauge Touhy epidural needle was placed into the L5-S1 interspace and advanced using fluoroscopic guidance and loss of resistance to air until the epidural space was encountered. After confirmation of needle placement in the epidural space, with dye, a solution containing normal saline, 3 mL and Depo-Medrol 80 mg were incrementally injected into the lumbar epidural space. The patient tolerated the procedure well with no complications. The patient was observed in the Pain Clinic and then discharged home neurologically intact. Plan and Disposition:: Patient was discharged without incident.
--- NOTE | 2023-11-15 11:14 | PC.NURSE ---
0900- DAUGHTER/CAREGIVER REQUESTS D/C, SHE FEELS PT BLOOD PRESSURE IS RELATED TO ANXIETY OF BEING HERE AND IT WILL BE LOWER ONCE HOME. CAREGIVER INSTRUCTED TO RECHECK PT BP AT HOME AND IF ANY SYMPTOMS WORSEN OR BP REMAINS HIGH TO GO TO ED
== END 2023-11-15 09:00 | disposition home or self-care (01) ==
PROVIDERS: PCP Internal Medicine Adolescent Medicine; Visit Provider Nurse Anesthetist, Certified Registered
DX: M51.16 Intervertebral disc disorders with radiculopathy, lumbar region (principal); M47.26 Other spondylosis with radiculopathy, lumbar region
CPT/HCPCS: 62323; J1040

== ENCOUNTER 2023-12-19 08:41 | Outpatient (POV) | payer MEDICARE, BC, SELFPAY ==
--- NOTE | 2023-12-19 09:00 | EXP.PAIN.SOA ---
[facility] Pain Management SOAP Note Subjective:: Patient is an 83-year-old female who presents today for follow-up of lumbar epidural steroid injection L5-S1 on 11/15/2023. 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 Today she states her pain is an 8 out of 10. Patient denies any new trauma or injury. She states that she really did not notice significant relief with the lumbar epidural. Patient states that she continues to have hip and buttocks pain that does go into her groin area as well. She describes this as an aching, throbbing sensation with some numbness and pressure. Patient does state that it does appear that the SI pain is worse compared to our last visit where the buttocks pain was. She states it does interfere with her ability perform activities of daily living such as cooking and cleaning. Patient was prescribed compounded cream at her last visit however she states that this seems to aggravate her symptoms. Patient is also prescribed tizanidine 2 mg daily and Celebrex 100 mg twice a day. She states she has not noticed significant improvement with the tizanidine. Her Seth has been reviewed and is appropriate. Review of Systems: General: No recent weight changes, no fever, no sleep disturbances Respiratory: No cough, no shortness of air, no recurring pulmonary infections Cardiovascular/peripheral vascular: No chest pain, no palpitations, no edema, no shortness of breath Gastrointestinal: No new onset incontinence, normal bowel movements reported Genitourinary: No new onset incontinence Musculoskeletal: Low back pain, bilateral hip pain, groin pain Psychiatric: [Normal mood/affect] Neurological: [Denies weakness in extremities], [denies balance issues] Objective:: Physical Exam: General: Alert and oriented x3, no acute distress, pleasant and cooperative Lungs: Respirations even and unlabored, symmetrical chest expansion Eyes: PERRL Musculoskeletal: Flexion and extension of lumbar [spine] somewhat guarded secondary to pain, [antalgic gait noted] point tenderness along bilateral SIs with positive bilateral Berna's, Destiny's, Gaenslen's, compression and distraction exam Neurological: Speech clear, no gross sensory deficit Assessment:: Degenerative disc disease of lumbar spine with lumbar facet arthropathy, bilateral hip pain, sacroiliitis Plan:: Patient continues to have significant pain in her low back along her bilateral hips. Again today the patient did have extreme point tenderness along her left SI and point tenderness at her right SI and a positive bilateral Berna's, Destiny's, Gaenslen's, compression and distraction exam. At her last visit we did discuss that she most likely would benefit from the bilateral SI injections however at that time her buttocks pain was more bothersome so we were trying to schedule a caudal epidural first. For what ever reason there seems like there was a miscommunication and the patient did get a lumbar epidural left L5-S1 rather than the caudal epidural. I have discussed with the patient since her SI pain is causing so much worsening symptoms that we will schedule her for these injections and then go back and evaluate her continued buttocks pain. Risk and benefits of the SI injections were explained to the patient and she would like to proceed forward with this plan of care. I have also discussed with the patient that I will send in a 14-day supply of baclofen 5 mg 3 times daily to try in place of the tizanidine. Patient will be scheduled for bilateral sacroiliac joint injection under fluoroscopy. Patient has been instructed to contact the clinic with any concerns before the next appointment. Dr. Klein has reviewed this note and agrees with this plan of care. This note was dictated using voice recognition software and make contain errors or omissions. [facility] Disclaimer: The information contained in this section may have been updated after the patient was seen, as this information can be updated by other users. Medical History Arthritis Cancer Chronic pain HLD (hyperlipidemia) HTN (hypertension) Sacroiliitis TIA (transient ischemic attack) Surgical History H/O left mastectomy H/O total hysterectomy History of ankle surgery History of cancer surgery Family History Other No significant family history Social History Smoking Status: Never smoker second hand exposure: No alcohol intake: never substance use type: denies use current occupational status: retired Travel in the last 8 weeks: None household members: family housing: house current occupational exposures/hazards: No caffeine: Yes
[2023-12-19 09:30] VITALS: BP 189/99; PULSE 90; RESP 18; O2SAT 94; BMI 26.6
== END 2023-12-19 23:59 | disposition home or self-care (01) ==
PROVIDERS: PCP Internal Medicine Adolescent Medicine; Visit Provider Nurse Practitioner Family
DX: M51.36 Other intervertebral disc degeneration, lumbar region (principal); M47.816 Spondylosis without myelopathy or radiculopathy, lumbar region; M25.551 Pain in right hip; M25.552 Pain in left hip; M46.1 Sacroiliitis, not elsewhere classified
CPT/HCPCS: 99212; G0463

== ENCOUNTER 2024-01-10 07:53 | Day surgery (SDC) | payer MEDICARE, BC, SELFPAY ==
[2024-01-10 08:16] VITALS: BP 162/110; PULSE 85; RESP 16; TEMP 36.5; O2SAT 95; BMI 26.6
[2024-01-10] MEDS: methylPREDNISolone ACETATE 80MG/ML VIAL 80 MG (08:27)
[2024-01-10 08:28] VITALS: PULSE 83; RESP 18; O2SAT 98
[2024-01-10] MEDS: LIDOCAINE 1% 5ML PF VIAL 5 ML (08:28)
[2024-01-10] MEDS: BUPIVACAINE 0.25% 10ML INJ 25 MG IJ (08:28)
[2024-01-10 08:30] VITALS: BP 174/87; PULSE 78; PULSE 83; RESP 16; RESP 18; O2SAT 95; O2SAT 98
--- NOTE | 2024-01-10 09:06 | P.PCN_ITS ---
Procedure Date: 01/10/24 Time: 08:30 Anesthesiologist:: Dain Kruger CRNA Complications:: None Pre-procedure Diagnosis:: Bilateral sacroiliitis Post-procedure Diagnosis:: Same Indications for Procedure:: Patient is a pleasant 83-year-old female comes to the today for bilateral sacroiliac joint injections. Patient had lumbar epidural steroid injection in the past with minimal relief. She complains of low back and posterior hip pain. Some bilateral left leg radicular symptoms at times. She rates her pain 8/10. Procedure Details:: Procedure: Bilateral sacroiliac joint injections under fluoroscopy Informed consent was obtained and the risks and benefits of the procedure were explained to the patient.~ The patient was taken to the procedure room and noninvasive monitors were placed including a noninvasive blood pressure cuff and pulse oximeter.~ The patient was placed prone on the procedure table. Both hips were cleansed using Betadine as a cleansing solution. C-arm fluoroscopy was used to view the right sacroiliac joint.~ The skin and subcutaneous tissues were anesthetized using lidocaine 1.5% and a 25-gauge needle.~ After this, a 22-gauge spinal needle was inserted under fluoroscopic guidance into the inferior aspect of the right sacroiliac joint.~ Omnipaque dye was injected and good spread was seen throughout the joint.~ After this, approximately 5 mL of bupivacaine, 0.25% and Depo-Medrol, 40 mg was incrementally injected into the right sacroiliac joint. We then moved to the left sacroiliac joint.~ The skin and subcutaneous tissues were anesthetized using lidocaine 1.5% and a 25-gauge needle.~ After this, a 22- gauge spinal needle was inserted under fluoroscopic guidance into the inferior aspect of the left sacroiliac joint.~ Omnipaque dye was injected and good spread was seen throughout the joint. After this, approximately 5 mL of bupivacaine, 0.25% and Depo-Medrol, 40 mg was incrementally injected into the left sacroiliac joint.~ The patient tolerated the procedure well with no complications. The patient was observed in the Pain Clinic and then was discharged home neurologically intact. Plan and Disposition:: Patient was discharged without incident
== END 2024-01-10 08:30 | disposition home or self-care (01) ==
LOC: SC.PAINP 07:53
PROVIDERS: PCP Internal Medicine Adolescent Medicine; Visit Provider Nurse Anesthetist, Certified Registered
DX: M46.1 Sacroiliitis, not elsewhere classified (principal)
CPT/HCPCS: 27096; 77002; G0260; J1040

== ENCOUNTER 2024-06-22 11:58 | Outpatient (CLI) | payer MEDICARE, BC, SELFPAY ==
--- NOTE | 2024-06-22 12:04 | XR_ITS ---
FINAL REPORT CLINICAL HISTORY: Left lower extremity pain and swelling COMPARISON: 03/01/2023 FINDINGS: LEFT TIBIA/FIBULA 2 views were obtained. There is no acute fracture or dislocation. The joint spaces are intact. Soft tissue swelling is noted around the ankle. IMPRESSION: No acute bony abnormality. Reviewed, Interpreted and Dictated by Guillermo Sotelo MD Transcribed by Lisa Tavarez Authenticated and [facility]
--- NOTE | 2024-06-22 12:04 | XR_ITS ---
FINAL REPORT CLINICAL HISTORY: LT LEG EDEMA FINDINGS: LEFT ANKLE Three views demonstrate no acute fracture or dislocation. The mortise is intact. Prominent soft tissue swelling is noted about the ankle. IMPRESSION: Soft tissue swelling with no acute bony abnormality. Reviewed, Interpreted and Dictated by Guillermo Sotelo MD Transcribed by Lisa Tavarez Authenticated and [facility]
--- NOTE | 2024-06-22 12:21 | CA_ITS ---
FINAL REPORT TECHNIQUE: Ultrasound images of the deep venous system were obtained from the left groin to the calf veins. CLINICAL HISTORY: EDEMA LT ANKLE,PT ON BABY ASA, PAIN LEFT CALF FINDINGS: The deep venous system is normally compressible. Normal flow is identified. IMPRESSION: No evidence of left lower extremity DVT. Reviewed, Interpreted and Dictated by Guillermo Sotelo MD Transcribed by Lisa Tavarez Authenticated and [facility]
== END 2024-06-22 23:59 | disposition home or self-care (01) ==
LOC: RT 11:59
PROVIDERS: PCP Internal Medicine Adolescent Medicine; Visit Provider Internal Medicine Adolescent Medicine
DX: M79.605 Pain in left leg; R60.0 Localized edema
CPT/HCPCS: 73590; 73610; 93971

== ENCOUNTER 2025-01-30 16:08 | Outpatient (CLI) | payer MEDICARE, BC, SELFPAY ==
[2025-01-30 16:27] LABS: Adenovirus F 40/41, stool Not Detected (NotDetected); Astrovirus Not Detected (NotDetected); Campylobacter Not Detected (NotDetected); Cryptosporidium Not Detected (NotDetected); Cyclospora Cayetanesis Not Detected (NotDetected); Entamoeba histolytica Not Detected (NotDetected); Enteroaggregative E coli Not Detected (NotDetected); Enteropathogenic E coli Not Detected (NotDetected); Enterotoxigenic E coli Not Detected (NotDetected); Giardia lamblia Not Detected (NotDetected); Norovirus Not Detected (NotDetected); Plesimonas Shigalloides, PCR Not Detected (NotDetected); Rotavirus A Not Detected (NotDetected); Salmonella, PCR Not Detected (NotDetected); Sapovirus Not Detected (NotDetected); Shiga-like toxin E coli Not Detected (NotDetected); Shigella Enterovasive E coli Not Detected (NotDetected); Vibrio Cholerae Not Detected (NotDetected); Vibrio, PCR Not Detected (NotDetected); Yersinia Entercolitica, PCR Not Detected (NotDetected)
[2025-01-30 21:10] LABS: Clostridium Difficile A/B, PCR Detected (NotDetected)
== END 2025-01-30 23:59 | disposition home or self-care (01) ==
LOC: LAB 16:09
PROVIDERS: PCP Internal Medicine Adolescent Medicine; Visit Provider Internal Medicine Adolescent Medicine
DX: A09 Infectious gastroenteritis and colitis, unspecified (principal)
CPT/HCPCS: 87507

== ENCOUNTER 2025-09-26 14:42 | Outpatient (CLI) | payer MEDICARE, BC, SELFPAY ==
--- NOTE | 2025-09-26 14:47 | XR_ITS ---
FINAL REPORT CLINICAL HISTORY: ACUTE B/L LBP W/O SCIATICA FINDINGS: THORACIC SPINE Two views were obtained. There is no acute fracture. There is 12 degrees thoracic scoliosis convex to the left in the lower thoracic spine. There is moderate disc space narrowing in the mid and lower thoracic spine. There is no malalignment. IMPRESSION: Degenerative changes as above. LUMBAR SPINE Six views were obtained. There is no acute fracture. There is advanced disc space narrowing at L1-2, L2-3, L3-4, and L4-5. There is moderate facet sclerosis in the lower lumbar spine. There is lumbar scoliosis convex to the right measuring 25 degrees. There is no malalignment. IMPRESSION: Degenerative changes as above. Reviewed, Interpreted and Dictated by Guillermo Sotelo MD Transcribed by Anita Lazo Authenticated and . [facility]
== END 2025-09-26 23:59 | disposition home or self-care (01) ==
LOC: RAD 14:44
PROVIDERS: PCP Internal Medicine Adolescent Medicine; Visit Provider Internal Medicine Adolescent Medicine
DX: M47.816 Spondylosis without myelopathy or radiculopathy, lumbar region (principal); M41.86 Other forms of scoliosis, lumbar region
CPT/HCPCS: 72084